=== PATIENT | male | born 1950 | race Caucasian/White ===

== ENCOUNTER 2020-11-12 14:45 | Inpatient (IN) | payer MEDICARE, OTHER ==
[2020-11-12] MEDS ORDERED: NITROGLYCERIN OINT 1 INCH/GM PACKET TOPICAL STA (15:26)
[2020-11-12] MEDS ORDERED: ASPIRIN 81 MG PO STA (15:26)
[2020-11-12] MEDS ORDERED: FUROSEMIDE 10 MG/ML 10 ML VIAL IV STA (15:27)
--- NOTE | 2020-11-12 15:30 | ED ---
General Adult HPI - General Chief complaint: Chest Pain Stated complaint: SOB,Chest pain Time Seen by Provider: 11/12/20 15:14 Source: patient Mode of arrival: ambulatory Limitations: no limitations - History of Present Illness Initial comments: This 70-year-old male presents with a complaint of shortness of breath. He states that it is much worse with any exertion. It initially started approximately 2 months ago but is much more severe over the past 2 weeks. He states that he has to sleep in a recliner as he cannot breathe if he lays flat. He complains of chronic lower extremity edema which may be somewhat worse. He states that he has had significant weight gain in the last month or so with abdominal distention. He also complains of some lower sternal chest pressure. He does have a history of coronary artery disease with 2 cardiac stents. He had 1 cardiac stent placed at our hospital in 2003. He had another cardiac stent placed in [place] in 2004. His last stress test was approximately one year ago and was purportedly normal. He denies any fevers or chills. He was recently started on an albuterol inhaler with minimal relief. He otherwise denies any lung problems. He denies any known congestive heart failure. He denies any history of DVT or PE. No other complaints or modifying factors. - Related Data Allergies Allergy/AdvReac Type Severity Reaction Status Date / Time ampicillin Allergy Unknown Verified 11/12/20 14:49 Childhood Iodinated Contrast Media Allergy Unknown Verified 11/12/20 14:49 Penicillins Allergy Unknown Verified 11/12/20 14:49 Childhood Tetanus Vaccines and Toxoid Allergy Unknown Verified 11/12/20 14:49 Review of Systems ROS Statement: Those systems with pertinent positive or pertinent negative responses have been documented in the HPI. ROS Other: All systems not noted in ROS Statement are negative. Past Medical History Past Medical History: Diabetes Mellitus, Hyperlipidemia, Hypertension Additional Past Medical History / Comment(s): prostate disorder History of Any Multi-Drug Resistant Organisms: None Reported Past Surgical History: Heart Catheterization With Stent Smoking Status: Never smoker Past Alcohol Use History: None Reported Past Drug Use History: None Reported General Exam - General Exam Comments Initial Comments: GENERAL: The patient is well nourished and well hydrated. VITAL SIGNS: Heart rate, blood pressure, respiratory rate reviewed as recorded in nurse's notes. EYES: Pupils are round and reactive. Extraocular movements are intact. No conjunctival / lid redness or swelling. ENT: No external evidence of injury, swelling, or ecchymosis. Airway is patent. Throat is clear. NECK: Nontender. No swelling or evidence of injury. No subcutaneous emphysema. Trachea is midline. No thyroid mass. HEART: Regular rate and rhythm. Good peripheral pulses. Significant lower e xtremity edema noted bilaterally. LUNGS/CHEST: Diminished breath sounds bilaterally. No ecchymosis, subcutaneous emphysema, or tenderness. ABDOMEN: Abdomen soft without tenderness. No palpable masses or organomegaly. No peritoneal signs. No abdominal wall swelling or ecchymosis. EXTREMITIES: No extremity tenderness. Normal muscle tone and function. No thoracolumbar tenderness. Significant lower extremity edema noted bilaterally. NEUROLOGIC: Sensation is grossly intact. Cranial nerve exam reveals face is symmetrical, tongue is midline, speech is clear. SKIN: No abrasions or ecchymosis is noted. No induration or masses noted. PSYCHIATRIC: Alert and oriented. Appropriate behavior and judgment. Limitations: no limitations Course Vital Signs 11/12/20 11/12/20 11/12/20 14:46 15:20 17:33 Temperature 97.6 F Pulse Rate 65 71 72 Respiratory 20 20 20 Rate Blood Pressure 192/73 173/81 165/80 O2 Sat by Pulse 96 97 100 Oximetry 11/12/20 18:58 Temperature Pulse Rate 68 Respiratory 20 Rate Blood Pressure 164/80 O2 Sat by Pulse 100 Oximetry Medical Decision Making - Medical Decision Making The patient was seen and examined. All diagnostics were reviewed. An IV is established. He receives aspirin orally as well as Nitropaste topically. He receives 80 mg of Lasix intravenously. The EKG shows evidence of a left bundle branch block with a normal sinus rhythm at a rate of 70. There is associated ST-T wave changes with the left bundle branch block. The CT intervals 170, QRS duration is 150, and the QTC intervals 481. The chest x-ray overall did not show any acute process or definitive congestive heart failure. The laboratories reviewed and shows some mild renal insufficiency with slight elevation of the BNP. The troponin is negative. Due to the patient not showing overt congestive heart failure on diagnostics, it is felt as though a pulmonary embolism needs to be ruled out. The patient is agreeable with this. A computed tomography scan of the thorax with contrast was done and no evidence of pulmonary embolism is noted. No acute processes identified. It is felt as though he would still requ antonio admission to the hospital. It is still felt clinically that he has congestive heart failure. The case was discussed with internal medicine PA and they're agreeable with admission. - Lab Data Result diagrams: 11/12/20 15:29 11/12/20 15:29 Lab Results 11/12/20 11/12/20 11/12/20 Range/Units 15:29 15:29 15:29 WBC 9.0 (3.8-10.6) k/uL RBC 4.77 (4.30-5.90) m/uL Hgb 13.6 (13.0-17.5) gm/dL Hct 40.5 (39.0-53.0) % MCV 84.9 (80.0-100.0) fL MCH 28.5 (25.0-35.0) pg MCHC 33.6 (31.0-37.0) g/dL RDW 14.1 (11.5-15.5) % Plt Count 203 (150-450) k/uL MPV 7.0 Neutrophils % 68 % Lymphocytes % 21 % Monocytes % 6 % Eosinophils % 4 % Basophils % 1 % Neutrophils # 6.1 (1.3-7.7) k/uL Lymphocytes # 1.9 (1.0-4.8) k/uL Monocytes # 0.5 (0-1.0) k/uL Eosinophils # 0.3 (0-0.7) k/uL Basophils # 0.1 (0-0.2) k/uL PT 10.4 (9.0-12.0) sec INR 1.0 (<1.2) APTT 22.8 (22.0-30.0) sec Sodium 138 (137-145) mmol/L Potassium 4.7 (3.5-5.1) mmol/L Chloride 98 (98-107) mmol/L Carbon Dioxide 33 H (22-30) mmol/L Anion Gap 7 mmol/L BUN 22 H (9-20) mg/dL Creatinine 1.42 H (0.66-1.25) mg/dL Est GFR (CKD-EPI)AfAm 57 (>60 ml/min/1.73 sqM) Est GFR (CKD-EPI)NonAf 49 (>60 ml/min/1.73 sqM) Glucose 122 H (74-99) mg/dL Calcium 9.0 (8.4-10.2) mg/dL Magnesium 2.1 (1.6-2.3) mg/dL Total Bilirubin 0.9 (0.2-1.3) mg/dL AST 30 (17-59) U/L ALT 29 (4-49) U/L Alkaline Phosphatase 109 (38-126) U/L Troponin I (0.000-0.034) ng/mL NT-Pro-B Natriuret Pep pg/mL Total Protein 7.0 (6.3-8.2) g/dL Albumin 4.1 (3.5-5.0) g/dL 11/12/20 11/12/20 Range/Units 15:29 15:29 WBC (3.8-10.6) k/uL RBC (4.30-5.90) m/uL Hgb (13.0-17.5) gm/dL Hct (39.0-53.0) % MCV (80.0-100.0) fL MCH (25.0-35.0) pg MCHC (31.0-37.0) g/dL RDW (11.5-15.5) % Plt Count (150-450) k/uL MPV Neutrophils % % Lymphocytes % % Monocytes % % Eosinophils % % Basophils % % Neutrophils # (1.3-7.7) k/uL Lymphocytes # (1.0-4.8) k/uL Monocytes # (0-1.0) k/uL Eosinophils # (0-0.7) k/uL Basophils # (0-0.2) k/uL PT (9.0-12.0) sec INR (<1.2) APTT (22.0-30.0) sec Sodium (137-145) mmol/L Potassium (3.5-5.1) mmol/L Chloride (98-107) mmol/L Carbon Dioxide (22-30) mmol/L Anion Gap mmol/L BUN (9-20) mg/dL Creatinine (0.66-1.25) mg/dL Est GFR (CKD-EPI)AfAm (>60 ml/min/1.73 sqM) Est GFR (CKD-EPI)NonAf (>60 ml/min/1.73 sqM) Glucose (74-99) mg/dL Calcium (8.4-10.2) mg/dL Magnesium (1.6-2.3) mg/dL Total Bilirubin (0.2-1.3) mg/dL AST (17-59) U/L ALT (4-49) U/L Alkaline Phosphatase (38-126) U/L Troponin I <0.012 (0.000-0.034) ng/mL NT-Pro-B Natriuret Pep 227 pg/mL Total Protein (6.3-8.2) g/dL Albumin (3.5-5.0) g/dL Disposition Clinical Impression: Dyspnea, Chest pain, Congestive heart failure, Unstable angina, Bundle branch block, left, Hypertension, Obesity, History of coronary artery disease, Renal insufficiency Disposition: ADMITTED IP TO THIS HOSP Condition: Fair Is patient prescribed a controlled substance at d/c from ED?: No Referrals: Nonstaff,Physician [Primary Care Provider] - 1-2 days Time of Disposition: 19:02 Decision Date: 11/12/20 Decision Time: 19:02
--- NOTE | 2020-11-12 15:45 | XR ---
EXAMINATION TYPE: XR chest 2V DATE OF EXAM: 11/12/2020 COMPARISON: NONE HISTORY: Chest pain and shortness of breath. TECHNIQUE: Frontal and lateral views of the chest are obtained. FINDINGS: There is mild chronic parenchymal changes bilaterally without suspicious focal air space o pacity, pleural effusion, or pneumothorax seen. The cardiac silhouette size is enlarged. Large bridg ing osteophytes anteriorly in the thoracic spine. Correlate for DISH. IMPRESSION: Chronic change and cardiomegaly without acute pulmonary process.
[2020-11-12 15:54] LABS: Basophils # (A) 0.1 k/uL (0-0.2); Basophils % (A) 1 %; Eosinophils # (A) 0.3 k/uL (0-0.7); Eosinophils % (A) 4 %; HCT 40.5 % (39.0-53.0); HGB 13.6 gm/dL (13.0-17.5); Lymphocytes # (A) 1.9 k/uL (1.0-4.8); Lymphocytes % (A) 21 %; MCH 28.5 pg (25.0-35.0); MCHC 33.6 g/dL (31.0-37.0); MCV 84.9 fL (80.0-100.0); Monocytes # (A) 0.5 k/uL (0-1.0); Monocytes % (A) 6 %; Neutrophils # (A) 6.1 k/uL (1.3-7.7); Neutrophils % (A) 68 %; Platelet Count 203 k/uL (150-450); RBC 4.77 m/uL (4.30-5.90); RDW 14.1 % (11.5-15.5)
[2020-11-12 16:04] LABS: Albumin 4.1 g/dL (3.5-5.0); Magnesium 2.1 mg/dL (1.6-2.3); Potassium 4.7 mmol/L (3.5-5.1); Total Bilirubin 0.9 mg/dL (0.2-1.3)
[2020-11-12 16:10] LABS: Partial Thromboplastin Time 22.8 sec (22.0-30.0); Prothrombin Time 10.4 sec (9.0-12.0)
[2020-11-12] MEDS ORDERED: diphenhydrAMINE 50 MG/ML 1 ML VIAL IVP STA (17:21)
[2020-11-12] MEDS ORDERED: methylPREDNISolone SOD SUCCI 125 MG/2 ML VIAL IV STA (17:21)
--- NOTE | 2020-11-12 18:37 | CT ---
EXAMINATION TYPE: CT angio chest DATE OF EXAM: 11/12/2020 COMPARISON: None HISTORY: Difficulty breathing. CT DLP: 595.3 mGycm Automated exposure control for dose reduction was used. CONTRAST: Performed with IV Contrast, patient injected with 80 mL of Isovue 370. Images obtained from the thoracic inlet to the diaphragm with IV contrast and 3-D post processed imag es. There is some mild patchy groundglass interstitial infiltrate in the mid lung north. Heart is border line enlarged. There is no pericardial effusion. There is no pleural effusion. There are no hilar mas ses. There is no mediastinal adenopathy. There is intact thoracic aorta. There is no aneurysm or dissection. The ascending aorta measures 3.8 cm. There is normal contrast opacification of the pulmonary arteries. There are no filling defects. There is some spurring in the thoracic spine. There is no thoracic compression fracture. There is anterior bridging osteophyte formation in the thoracic spine. This could relate to ankylosing spondylitis. IMPRESSION: Interstitial pulmonary infiltrates could relate to some pulmonary fibrosis. No evidence of pulmonary embolism.
[2020-11-12] MEDS ORDERED: LIDOCAINE 4% CREAM 5 GM TUBE TOPICAL PRN (19:24)
[2020-11-12 20:20] LABS: Glucose,Whole Blood 145 mg/dL (75-99)
[2020-11-12] MEDS: METOPROLOL TARTRATE 50 MG TAB PO SCH (20:34)
[2020-11-12] MEDS: ATORVASTATIN 80 MG TAB PO SCH (20:35)
[2020-11-12] MEDS: NITROGLYCERIN OINT 1 INCH/GM PACKET TOPICAL SCH (20:56)
[2020-11-12] MEDS: INSULIN DETEMIR (LEVEMIR) 100 UNIT/ML SYR SQ SCH (20:56)
[2020-11-12] MEDS: FLUTICASONE 50MCG/SPRAY NASAL 16GM EA NOSTRIL SCH (20:57)
[2020-11-12] MEDS: FUROSEMIDE 10 MG/ML 4 ML VIAL IV SCH (23:07)
[2020-11-13 06:10] LABS: Glucose,Whole Blood 378 mg/dL (75-99)
[2020-11-13] MEDS: LEVOTHYROXINE 112 MCG TAB PO SCH (06:23)
[2020-11-13] MEDS: INSULIN ASPART (NovoLOG) 100 UNIT/ML VIAL SQ SCH ×3 (06:23→17:37)
[2020-11-13] MEDS ORDERED: INSULIN ASPART (NovoLOG) 100 UNIT/ML VIAL SQ SCH ×3 (07:30→21:00)
[2020-11-13 07:54] LABS: Calcium 9.2 mg/dL (8.4-10.2); Potassium 5.2 mmol/L (3.5-5.1)
[2020-11-13] MEDS: LORATADINE 10 MG TAB PO SCH (08:10)
[2020-11-13] MEDS: METOPROLOL TARTRATE 50 MG TAB PO SCH ×2 (08:12→21:08)
[2020-11-13] MEDS: FINASTERIDE 5 MG TAB PO SCH (08:12)
[2020-11-13] MEDS: MULTIVITAMINS, THERA 1 EACH TAB PO SCH (08:12)
[2020-11-13] MEDS: ENOXAPARIN 40 MG/0.4 ML SYRINGE SQ SCH (08:13)
[2020-11-13] MEDS: FUROSEMIDE 10 MG/ML 4 ML VIAL IV SCH (08:13)
[2020-11-13] MEDS: ALBUTEROL HFA INHALER INHALATION SCH (08:14)
[2020-11-13] MEDS: NITROGLYCERIN OINT 1 INCH/GM PACKET TOPICAL SCH (08:20)
[2020-11-13] MEDS: FLUTICASONE 50MCG/SPRAY NASAL 16GM EA NOSTRIL SCH ×2 (08:20→21:01)
[2020-11-13] MEDS ORDERED: FAMOTIDINE 20 MG TAB PO SCH (09:00)
[2020-11-13] MEDS ORDERED: LOSARTAN 50 MG TAB PO SCH (09:00)
--- NOTE | 2020-11-13 10:52 | US ---
EXAMINATION TYPE: US venous doppler duplex LE DATE OF EXAM: 11/13/2020 10:39 AM COMPARISON: NONE CLINICAL HISTORY: swelling . Edema SIDE PERFORMED: Bilateral TECHNIQUE: The lower extremity deep venous system is examined utilizing real time linear array sonog kamran with graded compression, doppler sonography and color-flow sonography. VESSELS IMAGED: Common Femoral Vein Deep Femoral Vein Greater Saphenous Vein * Femoral Vein Popliteal Vein Small Saphenous Vein * Proximal Calf Veins (* superficial vessels) Large pt body habitus with edema, difficult exam Right Leg: Negative for DVT Left Leg: Negative for DVT There is normal flow, compressibility, vascular waveforms. IMPRESSION: No evident deep venous thrombosis at or above the knees. Technologist reports a technical ly difficult exam.
[2020-11-13] MEDS ORDERED: hydrALAZINE HCL 20 MG/ML 1 ML VIAL IVP PRN (11:26)
--- NOTE | 2020-11-13 11:27 | P.NPCON ---
History of Present Illness - Reason for Consult acute renal failure, chronic renal failure - History of Present Illness Reason for consultation: Acute kidney injury on chronic kidney disease History of present illness: Patient is a 70-year-old male seen in renal consultation for acute kidney injury and chronic kidney disease. Patient has chronic kidney disease and follows with a campus recruiting coordinator out of [facility]. Patient is not sure as to what his baseline renal function is. Creatinine on admission yesterday was 1.42 and is up to 1.8 today. Patient presented to the hospital with worsening shortness of breath and edema over the last couple of months. Patient states he's gained about 15-20 pounds over the last 2-3 months. Patient received 80 mg IV Lasix yesterday and was then maintained on 40 mg IV every 8 hours. It was decreased to 40 mg IV once daily starting this morning due to worsening renal function. He does have long-standing history of diabetes mellitus. At home was only taking Lasix 20 mg once daily. He denies regular use of nonsteroidals. Denies family history of renal disease. No fever or chills. Blood pressure stable. No vomiting or diarrhea. Edema is improving. Good urine output. No gross hematuria. Vital signs are stable. General: The patient appeared well nourished and normally developed. HEENT: Head exam is unremarkable. Neck is without jugular venous distension. LUNGS: Breath sounds decreased. HEART: Rate and Rhythm are regular. ABDOMEN: Soft, nontender. EXTREMITITES: 1+ edema. Past Medical History Past Medical History: Diabetes Mellitus, Hyperlipidemia, Hypertension Additional Past Medical History / Comment(s): prostate disorder History of Any Multi-Drug Resistant Organisms: None Reported Past Surgical History: Heart Catheterization With Stent Additional Past Surgical History / Comment(s): thyroid removal 2020 with cheikh of vocal cords. Past Anesthesia/Blood Transfusion Reactions: No Reported Reaction Date of Last Stent Placement:: Past Psychological History: No Psychological Hx Reported Smoking Status: Never smoker Past Alcohol Use History: None Reported Past Drug Use History: None Reported Medications and Allergies Home Medications Medication Instructions Recorded Confirmed Type Albuterol Inhaler [Ventolin Hfa 1 puff INHALATION RT-DAILY 11/12/20 11/12/20 History Inhaler] Aspirin EC [Ecotrin Low Dose] 81 mg PO HS 11/12/20 11/12/20 History Atorvastatin [Lipitor] 80 mg PO HS 11/12/20 11/12/20 History Cetirizine HCl 10 mg PO DAILY 11/12/20 11/12/20 History Famotidine 40 mg PO DAILY 11/12/20 11/12/20 History Finasteride [Proscar] 5 mg PO DAILY 11/12/20 11/12/20 History Fluticasone Nasal [place] [Flonase 1 spray EA NOSTRIL BID 11/12/20 11/12/20 History Nasal [place]] Furosemide [Lasix] 20 mg PO DAILY 11/12/20 11/12/20 History Insulin Aspart [NovoLOG Flexpen] See Protocol SQ AC-TID 11/12/20 11/12/20 History Insulin Glargine,Hum.rec.anlog 30 unit SQ HS 11/12/20 11/12/20 History [Lantus Solostar] Isosorbide Mononitrate ER [Imdur] 30 mg PO DAILY 11/12/20 11/12/20 History Levothyroxine Sodium [Synthroid] 224 mcg PO DAILY 11/12/20 11/12/20 History Lidocaine 4% Cream [Lmx 4] 1 applic TOPICAL DAILY PRN 11/12/20 11/12/20 History Losartan [Cozaar] 50 mg PO DAILY 11/12/20 11/12/20 History Metoprolol Tartrate [Lopressor] 50 mg PO BID 11/12/20 11/12/20 History Multivitamins, Thera [Multivitamin 1 tab PO DAILY 11/12/20 11/12/20 History (formulary)] Allergies Allergy/AdvReac Type Severity Reaction Status Date / Time ampicillin Allergy Unknown Verified 11/12/20 19:07 Childhood codeine Allergy Unknown Verified 11/12/20 19:07 Iodinated Contrast Media Allergy Unknown Verified 11/12/20 19:07 Penicillins Allergy Unknown Verified 11/12/20 19:07 Childhood Tetanus Vaccines and Toxoid Allergy Unknown Verified 11/12/20 19:07 Physical Exam Vitals: Vital Signs Temp Pulse Pulse Resp BP BP Pulse Ox 11/13/20 08:14 95 11/13/20 08:09 153/67 11/13/20 08:00 97.8 F 75 18 161/69 97 11/13/20 03:35 98 F 71 16 149/65 96 11/12/20 23:31 78 18 144/68 95 11/12/20 20:54 98.4 F 70 16 139/65 100 11/12/20 18:58 68 20 164/80 100 11/12/20 17:33 72 20 165/80 100 11/12/20 15:20 71 20 173/81 97 11/12/20 14:46 97.6 F 65 20 192/73 96 Intake and Output 11/12/20 11/13/20 11/13/20 22:59 06:59 14:59 Other: Voiding Method Toilet Toilet Urinal Urinal # Voids 0 1 Weight 131.542 kg 129.8 kg Results - Lab Results Most recent lab results Calcium 9.2 mg/dL (8.4-10.2) 11/13/20 06:51 Magnesium 2.1 mg/dL (1.6-2.3) 11/12/20 15:29 11/12/20 15:29 11/13/20 06:51 Assessment and Plan Plan: Assessment: 1. Acute kidney injury mostly prerenal secondary to cardiorenal syndrome. Creatinine 1.42 on admission and is 1.8 today. He also received IV contrast on 11/12/2020. 2. Chronic kidney disease. Patient follows with campus recruiting coordinator out of [facility]. Unknown baseline renal function. 3. Volume overload. 4. Diabetes mellitus. 5. CHF. Unknown ejection fraction. 6. Mild hyperkalemia secondary to hyperglycemia. Plan: Maintain IV Lasix 40 mg once daily. Check urinalysis. Check renal ultrasound. Low-salt diet and 1500 mL fluid restriction. Continue to monitor renal function and urine output. Follow-up echocardiogram. Hold losartan and add hydralazine. Tight blood sugar control. Thank you for the consultation. I will continue to follow the patient with you during his hospital stay.
--- NOTE | 2020-11-13 11:29 | P.CRDCN ---
<Molly Wise - Last Filed: 11/13/20 11:13> History of Present Illness History of present illness: HISTORY OF PRESENTING ILLNESS This is a pleasant 70-year-old male past medical history significant for coronary artery disease status post PCI in 2003 at the [facility], hypertension, dyslipidemia, diabetes mellitus and morbid obesity. He follows in the office with the [facility]. We have been asked to see in consultation for heart failure. He states for the previous 2 months he has been experiencing worsening exertional shortness of breath, a full sensation in his abdomen and chest, increased lower extremity swelling, increased fatigue and poor oral intake. He states he started sleeping in a chair around late August due to inability to lay flat and sleep comfortably without feeling short of breath. He denies chest pain or tightness but he again repeats that his chest feels full. He states he does have some baseline lower extremity swelling but he has gained 15 lbs in the last 2 months. DIAGNOSTICS EKG reveals sinus mechanism with underlying left bundle branch block, there are no old EKGs for comparison. Telemetry tracings indicate sinus mechanism. Chest xray mild parenchymal changes bilaterally with no suspicious opacity or pleural effusion or heart failure. CTA is negative for pulmonary embolism with interstitial pulmonary infiltrates likely related to pulmonary fibrosis, ascending aorta measures 2.8 cm. Laboratory reviewed, CBC unremarkable, sodium 135, potassium 5.2, creatinine on admission 1.40 2 repeat today 1.8, cardiac enzymes negative 3, magnesium 2.1, proBNP 227. Current cardiac medications include aspirin 81 mg daily, atorvastatin 80 mg daily, Lasix 20 mg daily, Imdur 30 mg daily, losartan 50 mg daily and Lopressor 50 mg twice a day. REVIEW OF SYSTEMS At the time of my exam: CONSTITUTIONAL: Denies fever or chills. CARDIOVASCULAR: Denies chest pain, shortness of breath, orthopnea, PND or palpitations. RESPIRATORY: Denies cough. GASTROINTESTINAL: Denies abdominal pain, diarrhea, constipation, nausea or vomiting. MUSCULOSKELETAL: Denies myalgias. NEUROLOGIC: Denies numbness, tingling, headacbe or weakness. ENDOCRINE: Denies fatigue, weight change, polydipsia or polyurina. GENITOURINARY: Denies burning, hematuria or urgency with micturation. HEMATOLOGIC: Denies history of anemia or bleeding. PHYSICAL EXAMINATION Blood pressure 153/67 heart rate 75 afebrile and maintaining oxygen saturation on room air. CONSTITUTIONAL: No apparent distress. HEENT: Head is normocephalic. Pupils are equal, round. Sclerae anicteric. Mucous membranes of the mouth are moist. No JVD. No carotid bruit. CHEST EXAMINATION: Expiratory wheezes, no rhonchi or rales. No chest wall tenderness is noted on palpation or with deep breathing. HEART EXAMINATION: Regular rate and rhythm. S1, S2 heard. No murmurs, gallops or rub. ABDOMEN: Soft, nontender. Positive bowel sounds. EXTREMITIES: 2+ peripheral pulses, bilateral lower extremity 2+ pitting edema and no calf tenderness. NEUROLOGIC EXAMINATION: Patient is awake, alert and oriented x3. ASSESSMENT Exertional shortness of breath, clinically no heart failure. Consider pulmonary evaluation. Suspect lower extremity venous insufficiency Coronary artery disease status post PCI in 2003, exact details unavailable Left bundle branch block Acute kidney injury Hypertension Dyslipidemia Diabetes mellitus PLAN An acute coronary event has been ruled out. Decrease aspirin to 81 mg daily. Lower extremity edema likely related to venous insufficiency. Do not suspect overt heart failure as cause for his symptoms. Consider pulmonary etiology given his wheezing and normal proBNP. Recommend decreasing IV diuretics, await nephrology opinion regarding continuing them at all. Continue atorvastatin, metoprolol and losartan as previously ordered. Check a d-dimer and lower extremity Doppler. Echocardiogram has been obtained and will be reviewed. Thank you kindly for this consultation. Nurse Practitioner note has been reviewed, I agree with a documented findings and plan of care. Patient was seen and examined. Past Medical History Past Medical History: Diabetes Mellitus, Hyperlipidemia, Hypertension Additional Past Medical History / Comment(s): prostate disorder History of Any Multi-Drug Resistant Organisms: None Reported Past Surgical History: Heart Catheterization With Stent Additional Past Surgical History / Comment(s): thyroid removal 2019 with cheikh of vocal cords. Past Anesthesia/Blood Transfusion Reactions: No Reported Reaction Date of Last Stent Placement:: Past Psychological History: No Psychological Hx Reported Smoking Status: Never smoker Past Alcohol Use History: None Reported Past Drug Use History: None Reported Medications and Allergies Home Medications Medication Instructions Recorded Confirmed Type Albuterol Inhaler [Ventolin Hfa 1 puff INHALATION RT-DAILY 11/12/20 11/12/20 History Inhaler] Aspirin EC [Ecotrin Low Dose] 81 mg PO HS 11/12/20 11/12/20 History Atorvastatin [Lipitor] 80 mg PO HS 11/12/20 11/12/20 History Cetirizine HCl 10 mg PO DAILY 11/12/20 11/12/20 History Famotidine 40 mg PO DAILY 11/12/20 11/12/20 History Finasteride [Proscar] 5 mg PO DAILY 11/12/20 11/12/20 History Fluticasone Nasal Volant [Flonase 1 spray EA NOSTRIL BID 11/12/20 11/12/20 History Nasal Volant] Furosemide [Lasix] 20 mg PO DAILY 11/12/20 11/12/20 History Insulin Aspart [NovoLOG Flexpen] See Protocol SQ AC-TID 11/12/20 11/12/20 History Insulin Glargine,Hum.rec.anlog 30 unit SQ HS 11/12/20 11/12/20 History [Lantus Solostar] Isosorbide Mononitrate ER [Imdur] 30 mg PO DAILY 11/12/20 11/12/20 History Levothyroxine Sodium [Synthroid] 224 mcg PO DAILY 11/12/20 11/12/20 History Lidocaine 4% Cream [Lmx 4] 1 applic TOPICAL DAILY PRN 11/12/20 11/12/20 History Losartan [Cozaar] 50 mg PO DAILY 11/12/20 11/12/20 History Metoprolol Tartrate [Lopressor] 50 mg PO BID 11/12/20 11/12/20 History Multivitamins, Thera [Multivitamin 1 tab PO DAILY 11/12/20 11/12/20 History (formulary)] Allergies Allergy/AdvReac Type Severity Reaction Status Date / Time ampicillin Allergy Unknown Verified 11/12/20 19:07 Childhood codeine Allergy Unknown Verified 11/12/20 19:07 Iodinated Contrast Media Allergy Unknown Verified 11/12/20 19:07 Penicillins Allergy Unknown Verified 11/12/20 19:07 Childhood Tetanus Vaccines and Toxoid Allergy Unknown Verified 11/12/20 19:07 Physical Exam Vitals: Vital Signs Temp Pulse Pulse Resp BP BP Pulse Ox 11/13/20 08:14 95 11/13/20 08:09 153/67 11/13/20 08:00 97.8 F 75 18 161/69 97 11/13/20 03:35 98 F 71 16 149/65 96 11/12/20 23:31 78 18 144/68 95 11/12/20 20:54 98.4 F 70 16 139/65 100 11/12/20 18:58 68 20 164/80 100 11/12/20 17:33 72 20 165/80 100 11/12/20 15:20 71 20 173/81 97 11/12/20 14:46 97.6 F 65 20 192/73 96 Intake and Output 11/12/20 11/13/20 11/13/20 22:59 06:59 14:59 Other: Voiding Method Toilet Urinal # Voids 0 1 Weight 131.542 kg 129.8 kg Results 11/12/20 15:29 11/13/20 06:51 Cardiac Enzymes 11/12/20 11/12/20 11/12/20 Range/Units 15:29 15:29 20:44 AST 30 (17-59) U/L Troponin I <0.012 0.013 (0.000-0.034) ng/mL 11/12/20 Range/Units 23:08 AST (17-59) U/L Troponin I <0.012 (0.000-0.034) ng/mL Coagulation 11/12/20 Range/Units 15:29 PT 10.4 (9.0-12.0) sec APTT 22.8 (22.0-30.0) sec CBC 11/12/20 Range/Units 15:29 WBC 9.0 (3.8-10.6) k/uL RBC 4.77 (4.30-5.90) m/uL Hgb 13.6 (13.0-17.5) gm/dL Hct 40.5 (39.0-53.0) % Plt Count 203 (150-450) k/uL Comprehensive Metabolic Panel 11/12/20 11/13/20 Range/Units 15:29 06:51 Sodium 138 135 L (137-145) mmol/L Potassium 4.7 5.2 H (3.5-5.1) mmol/L Chloride 98 94 L (98-107) mmol/L Carbon Dioxide 33 H 31 H (22-30) mmol/L BUN 22 H 36 H (9-20) mg/dL Creatinine 1.42 H 1.80 H (0.66-1.25) mg/dL Glucose 122 H 442 H (74-99) mg/dL Calcium 9.0 9.2 (8.4-10.2) mg/dL AST 30 (17-59) U/L ALT 29 (4-49) U/L Alkaline Phosphatase 109 (38-126) U/L Total Protein 7.0 (6.3-8.2) g/dL Albumin 4.1 (3.5-5.0) g/dL Current Medications Generic Name Dose Route Start Last Admin Trade Name Freq PRN Reason Stop Dose Admin Albuterol Sulfate 1 puff 11/13/20 08:00 11/13/20 08:14 Albuterol Hfa Inhaler INHALATION 1 puff RT-DAILY LIV Administration Aspirin 81 mg 11/14/20 09:00 Aspirin 81 Mg PO DAILY LIV Atorvastatin Calcium 80 mg 11/12/20 21:00 11/12/20 20:35 Atorvastatin 80 Mg Tab PO 80 mg HS LIV Administration Enoxaparin Sodium 40 mg 11/13/20 09:00 Enoxaparin 40 Mg/0.4 Ml Syringe SQ DAILY LIV Famotidine 40 mg 11/13/20 09:00 Famotidine 20 Mg Tab PO DAILY LIV Finasteride 5 mg 11/13/20 09:00 Finasteride 5 Mg Tab PO DAILY LIV Fluticasone Propionate 1 spray 11/12/20 21:00 11/12/20 20:57 Fluticasone 50mcg/Volant Nasal 16gm EA NOSTRIL Not Given BID LIV Furosemide 40 mg 11/13/20 00:00 11/12/20 23:07 Furosemide 10 Mg/Ml 4 Ml Vial IV 40 mg Q8HR LIV Administration Insulin Aspart 0 unit 11/13/20 07:30 11/13/20 06:23 Insulin Aspart (Novolog) 100 Unit/Ml Vial SQ 11 unit AC-TID LIV Administration Protocol Insulin Detemir 30 unit 11/12/20 21:00 11/12/20 20:56 Insulin Detemir (Levemir) 100 Unit/Ml Syr SQ 30 unit HS [facility] Administration Levothyroxine Sodium 224 mcg 11/13/20 06:30 11/13/20 06:23 Levothyroxine 112 Mcg Tab PO 224 mcg DAILY@0630 LIV Administration Lidocaine HCl 1 applic 11/12/20 19:24 Lidocaine 4% Cream 5 Gm Tube TOPICAL DAILY PRN Pain Loratadine 10 mg 11/13/20 09:00 Loratadine 10 Mg Tab PO DAILY LIV Losartan Potassium 50 mg 11/13/20 09:00 Losartan 50 Mg Tab PO DAILY LIV Metoprolol Tartrate 50 mg 11/12/20 21:00 11/12/20 20:34 Metoprolol Tartrate 50 Mg Tab PO 50 mg BID LIV Administration Multivitamins 1 each 11/13/20 09:00 Multivitamins, Thera 1 Each Tab PO DAILY LIV Nitroglycerin 1 inch 11/12/20 22:00 11/12/20 20:56 Nitroglycerin Oint 1 Inch/Gm Packet TOPICAL Not Given QID LIV Intake and Output 11/12/20 11/13/20 11/13/20 22:59 06:59 14:59 Other: Voiding Method Toilet Urinal # Voids 0 1 Weight 131.542 kg 129.8 kg 11/12/20 15:29 11/13/20 06:51 <Hu Mendosa - Last Filed: 11/13/20 16:38> History of Present Illness History of present illness: Patient admits allergy to contrast is previous NASRA with contrast in the past. Patient with NASRA <24hrs after contrast, more likely related to overdiuresis as contrast induced nephropathy often 24-48 hrs. We will decrease diuresis. He admits he has had swollen LE "for years" and may be more of a component of chronic venous insufficiency, check dopplers rule out DVT. Patient with audible wheeze and possible pulmonary fibrosis. Suspect mainly pulmonary source of SOB. Recommend pulmonary evaluation. Weight gain may be related to diet and lack of exercise. Does have an obese stomach and issues with feeling full easily and may be gastroparesis vs fluid retention. If volume status ambiguous or worsening kidney function may always consider a RHC. Hu Mendosa, DO Physical Exam Vitals: Vital Signs Temp Pulse Pulse Resp BP BP Pulse Ox 11/13/20 16:00 97.8 F 73 18 145/65 96 11/13/20 12:00 98.0 F 70 18 142/63 98 11/13/20 08:14 95 11/13/20 08:09 153/67 11/13/20 08:00 97.8 F 75 18 161/69 97 11/13/20 03:35 98 F 71 16 149/65 96 11/12/20 23:31 78 18 144/68 95 11/12/20 20:54 98.4 F 70 16 139/65 100 11/12/20 18:58 68 20 164/80 100 11/12/20 17:33 72 20 165/80 100 Intake and Output 11/13/20 11/13/20 11/13/20 06:59 14:59 22:59 Intake Total 247 Output Total 750 Balance -503 Intake: Oral 247 Output: Urine 750 Other: Voiding Method Toilet Urinal # Voids 1 Weight 129.8 kg 129.1 kg Results 11/12/20 15:29 11/13/20 06:51 Cardiac Enzymes 11/12/20 11/12/20 Range/Units 20:44 23:08 Troponin I 0.013 <0.012 (0.000-0.034) ng/mL Comprehensive Metabolic Panel 11/13/20 Range/Units 06:51 Sodium 135 L (137-145) mmol/L Potassium 5.2 H (3.5-5.1) mmol/L Chloride 94 L (98-107) mmol/L Carbon Dioxide 31 H (22-30) mmol/L BUN 36 H (9-20) mg/dL Creatinine 1.80 H (0.66-1.25) mg/dL Glucose 442 H (74-99) mg/dL Calcium 9.2 (8.4-10.2) mg/dL Current Medications Generic Name Dose Route Start Last Admin Trade Name Freq PRN Reason Stop Dose Admin Albuterol Sulfate 1 puff 11/13/20 08:00 11/13/20 08:14 Albuterol Hfa Inhaler INHALATION 1 puff RT-DAILY LIV Administration Aspirin 81 mg 11/14/20 09:00 Aspirin 81 Mg PO DAILY LIV Atorvastatin Calcium 80 mg 11/12/20 21:00 11/12/20 20:35 Atorvastatin 80 Mg Tab PO 80 mg HS LIV Administration Enoxaparin Sodium 40 mg 11/13/20 09:00 11/13/20 08:13 Enoxaparin 40 Mg/0.4 Ml Syringe SQ 40 mg DAILY LIV Administration Famotidine 20 mg 11/14/20 09:00 Famotidine 20 Mg Tab PO DAILY LIV Finasteride 5 mg 11/13/20 09:00 11/13/20 08:12 Finasteride 5 Mg Tab PO 5 mg DAILY LIV Administration Fluticasone Propionate 1 spray 11/12/20 21:00 11/13/20 08:20 Fluticasone 50mcg/Volant Nasal 16gm EA NOSTRIL Not Given BID [facility] Furosemide 40 mg 11/14/20 09:00 Furosemide 10 Mg/Ml 4 Ml Vial IV DAILY LIV Hydralazine HCl 10 mg 11/13/20 11:26 Hydralazine Hcl 20 Mg/Ml 1 Ml Vial IVP Q4HR PRN Blood Pressure - High Hydralazine HCl 25 mg 11/13/20 16:00 11/13/20 16:25 Hydralazine Hcl 25 Mg Tab PO 25 mg TID LIV Administration Insulin Aspart 0 unit 11/13/20 07:30 11/13/20 12:23 Insulin Aspart (Novolog) 100 Unit/Ml Vial SQ 12 unit AC-TID LIV Administration Protocol Insulin Detemir 30 unit 11/12/20 21:00 11/12/20 20:56 Insulin Detemir (Levemir) 100 Unit/Ml Syr SQ 30 unit HS LIV Administration Levothyroxine Sodium 224 mcg 11/13/20 06:30 11/13/20 06:23 Levothyroxine 112 Mcg Tab PO 224 mcg DAILY@0630 LIV Administration Lidocaine HCl 1 applic 11/12/20 19:24 Lidocaine 4% Cream 5 Gm Tube TOPICAL DAILY PRN Pain Loratadine 10 mg 11/13/20 09:00 11/13/20 08:10 Loratadine 10 Mg Tab PO 10 mg DAILY LIV Administration Metoprolol Tartrate 50 mg 11/12/20 21:00 11/13/20 08:12 Metoprolol Tartrate 50 Mg Tab PO 50 mg BID LIV Administration Multivitamins 1 each 11/13/20 09:00 11/13/20 08:12 Multivitamins, Thera 1 Each Tab PO 1 each DAILY LIV Administration Intake and Output 11/13/20 11/13/20 11/13/20 06:59 14:59 22:59 Intake Total 247 Output Total 750 Balance -503 Intake: Oral 247 Output: Urine 750 Other: Voiding Method Toilet Urinal # Voids 1 Weight 129.8 kg 129.1 kg Patient Weight 11/14/20 06:59 Weight 129.1 kg 11/12/20 15:29 11/13/20 06:51
--- NOTE | 2020-11-13 11:38 | ECHOF ---
Referral Reason:Heart Failure MEASUREMENTS -------- HEIGHT: 172.7 cm WEIGHT: 129.7 kg BP: 149/65 RVIDd: 3.4 cm (< 3.3) IVSd: 1.3 cm (0.6 - 1.1) LVIDd: 4.9 cm (3.9 - 5.3) LVPWd: 1.5 cm (0.6 - 1.1) IVSs: 1.7 cm LVIDs: 2.9 cm LVPWs: 1.9 cm LA Diam: 3.6 cm (2.7 - 3.8) Ao Diam: 3.3 cm (2.0 - 3.7) AV Cusp: 1.7 cm (1.5 - 2.6) LA Diam: 4.5 cm (2.7 - 3.8) MV EXCURSION: 20.304 mm (> 18.000) MV EF SLOPE: 67 mm/s (70 - 150) EPSS: 0.5 cm MV E Germain: 0.53 m/s MV DecT: 268 ms MV A Germain: 0.77 m/s MV E/A Ratio: 0.69 AV maxP.49 mmHg AV meanP.54 mmHg RAP: 5.00 mmHg RVSP: 37.31 mmHg FINDINGS -------- Sinus rhythm. Morbid Obesity This was a techncally difficult study with suboptimal views, , Lumason utilized for enhancement of im ages. The left ventricular size is normal. There is mild concentric left ventricular hypertrophy. Overa ll left ventricular systolic function is low-normal with, an EF between 50 - 55 %. The right ventricle is normal in size. The left atrial size is normal. The right atrial size is normal. The aortic valve was not well visualized. There is mild aortic stenosis present. Peak/mean gradie nt across the Aortic Valve is 22.49mmHg / 12.54mmHg. Mild mitral annular calcification present. Mild mitral regurgitation is present. Mild tricuspid regurgitation present. There is mild pulmonary hypertension. The right ventricular systolic pressure, as measured by Doppler, is 37.31mmHg. The pulmonic valve was not well visualized. The aortic root size is normal. There is no pericardial effusion. CONCLUSIONS -------- 1. Morbid Obesity 2. This was a techncally difficult study with suboptimal views, , Lumason utilized for enhancement of images. 3. The left ventricular size is normal. 4. There is mild concentric left ventricular hypertrophy. 5. Overall left ventricular systolic function is low-normal with, an EF between 50 - 55 %. 6. The right ventricle is normal in size. 7. The left atrial size is normal. 8. The right atrial size is normal. 9. The aortic valve was not well visualized. 10. There is mild aortic stenosis present. 11. Peak/mean gradient across the Aortic Valve is 22.49mmHg / 12.54mmHg. 12. Mild mitral annular calcification present. 13. Mild mitral regurgitation is present. 14. Mild tricuspid regurgitation present. 15. There is mild pulmonary hypertension. 16. The right ventricular systolic pressure, as measured by Doppler, is 37.31mmHg. 17. The pulmonic valve was not well visualized. 18. The aortic root size is normal. 19. There is no pericardial effusion. LANDSCAPE ARTIST: Rebceca Stoddard RDCS
[2020-11-13 11:56] LABS: Glucose,Whole Blood 431 mg/dL (75-99)
[2020-11-13 12:56] LABS: Appearance,Urine Clear (Clear); Bilirubin,Urine Negative (Negative); Blood,Urine Negative (Negative); Color,Urine Light Yellow; Glucose,Urine (UA) 4+ (Negative); Ketones,Urine Negative (Negative); Leukocyte Esterase,Urine Negative (Negative); Nitrite,Urine Negative (Negative); Protein,Urine Negative (Negative); Specific Gravity,Urine 1.012 (1.001-1.035); Urobilinogen,Urine <2.0 mg/dL (<2.0)
[2020-11-13 14:32] VITALS: BMI 43.2
--- NOTE | 2020-11-13 15:39 | US ---
EXAMINATION TYPE: US kidneys/renal and bladder DATE OF EXAM: 11/13/2020 COMPARISON: NONE CLINICAL HISTORY: stefania. abnormal labs. No pain. EXAM MEASUREMENTS: Right Kidney: 9.6 x 4.7 x 4.7 cm Left Kidney: 8.5 x 3.5 x 4.6 cm Limited due to overlying bowel gas and patient body habitus Right Kidney: No hydronephrosis or masses seen Left Kidney: Limited visualization due to overlying bowel gas. Appears smaller in size compared to co ntralateral kidney. Bladder: Contracted, anechoic Bilateral Jets not seen No evident ascites. Cortical medullary differentiation appears maintained within the kidneys. IMPRESSION: Exam is limited for evaluation. No hydronephrosis evident bilaterally.
[2020-11-13] MEDS ORDERED: ASPIRIN 325 MG TAB PO SCH (16:00)
[2020-11-13] MEDS: hydrALAZINE HCL 25 MG TAB PO SCH ×2 (16:25→21:09)
[2020-11-13 17:00] LABS: Glucose,Whole Blood 547 mg/dL (75-99)
[2020-11-13 17:00] LABS: Glucose,Whole Blood 542 mg/dL (75-99)
[2020-11-13 20:39] LABS: Glucose,Whole Blood 529 mg/dL (75-99)
[2020-11-13] MEDS: ATORVASTATIN 80 MG TAB PO SCH (21:08)
[2020-11-13] MEDS: INSULIN REGULAR 100 UNIT in SODIUM CHLORIDE 0.9% 100 ML IV SCH (21:22)
[2020-11-13 21:53] LABS: Glucose,Whole Blood 523 mg/dL (75-99)
[2020-11-13 22:33] LABS: Glucose,Whole Blood 424 mg/dL (75-99)
[2020-11-13 22:52] LABS: Glucose,Whole Blood 369 mg/dL (75-99)
[2020-11-13] MEDS: INSULIN DETEMIR (LEVEMIR) 100 UNIT/ML SYR SQ SCH (22:56)
[2020-11-13 23:22] LABS: Glucose,Whole Blood 247 mg/dL (75-99)
[2020-11-14 01:10] LABS: Glucose,Whole Blood 87 mg/dL (75-99)
[2020-11-14 01:58] LABS: Glucose,Whole Blood 86 mg/dL (75-99)
[2020-11-14 03:03] LABS: Glucose,Whole Blood 170 mg/dL (75-99)
[2020-11-14 05:21] LABS: Glucose,Whole Blood 138 mg/dL (75-99)
[2020-11-14] MEDS: LEVOTHYROXINE 112 MCG TAB PO SCH (06:19)
[2020-11-14 07:05] LABS: Glucose,Whole Blood 149 mg/dL (75-99)
[2020-11-14] MEDS: ALBUTEROL HFA INHALER INHALATION SCH ×2 (07:26→20:53)
[2020-11-14 07:56] LABS: Magnesium 2.3 mg/dL (1.6-2.3); Potassium 4.6 mmol/L (3.5-5.1)
[2020-11-14] MEDS: ASPIRIN 81 MG PO SCH (08:05)
[2020-11-14] MEDS: LORATADINE 10 MG TAB PO SCH (08:06)
[2020-11-14] MEDS: METOPROLOL TARTRATE 50 MG TAB PO SCH ×2 (08:06→20:00)
[2020-11-14] MEDS: MULTIVITAMINS, THERA 1 EACH TAB PO SCH (08:06)
[2020-11-14] MEDS: FAMOTIDINE 20 MG TAB PO SCH (08:06)
[2020-11-14] MEDS: hydrALAZINE HCL 25 MG TAB PO SCH ×3 (08:06→23:04)
[2020-11-14] MEDS: FINASTERIDE 5 MG TAB PO SCH (08:06)
[2020-11-14] MEDS: FLUTICASONE 50MCG/SPRAY NASAL 16GM EA NOSTRIL SCH ×2 (08:07→19:59)
[2020-11-14] MEDS: ENOXAPARIN 40 MG/0.4 ML SYRINGE SQ SCH (08:07)
[2020-11-14] MEDS ORDERED: FUROSEMIDE 10 MG/ML 4 ML VIAL IV SCH (09:00)
[2020-11-14 09:12] LABS: Glucose,Whole Blood 372 mg/dL (75-99)
--- NOTE | 2020-11-14 09:46 | P.HPIM ---
History of Present Illness H&P Date: 11/13/20 Chief Complaint: SOB,Chest pain 70-year-old male presents with a complaint of shortness of breath. He states that it is much worse with any exertion. It initially started approximately 2 months ago but is much more severe over the past 2 weeks. He states that he has to sleep in a recliner as he cannot breathe if he lays flat. He complains of chronic lower extremity edema which may be somewhat worse. He states that he has had significant weight gain in the last month or so with abdominal distention. He also complains of some lower sternal chest pressure. He does h ave a history of coronary artery disease with 2 cardiac stents. He had 1 cardiac stent placed at our hospital in 2003. He had another cardiac stent placed in [place] in 2004. His last stress test was approximately one year ago and was purportedly normal. He denies any fevers or chills. He was recently started on an albuterol inhaler with minimal relief. He receives aspirin orally as well as Nitropaste topically. He received 80 mg of Lasix intravenously. The EKG shows evidence of a left bundle branch block with a normal sinus rhythm at a rate of 70. There is associated ST-T wave jackson ges with the left bundle branch block. The MA intervals 170, QRS duration is 150, and the QTC intervals 481. The chest x-ray overall did not show any acute process or definitive congestive heart failure. The laboratories reviewed and shows some mild renal insufficiency with slight elevation of the BNP. The troponin is negative. Due to the patient not showing overt congestive heart failure on diagnostics, it is felt as though a pulmonary embolism needs to be ruled out. The patient is agreeable with this. A computed tomography scan of the thorax with contrast was done and no evidence of pulmonary embolism is noted. No acute processes identified. Past Medical History Past Medical History: Diabetes Mellitus, Hyperlipidemia, Hypertension Additional Past Medical History / Comment(s): prostate disorder History of Any Multi-Drug Resistant Organisms: None Reported Past Surgical History: Heart Catheterization With Stent Additional Past Surgical History / Comment(s): thyroid removal 2020 with cheikh of vocal cords. Past Anesthesia/Blood Transfusion Reactions: No Reported Reaction Date of Last Stent Placement:: Past Psychological History: No Psychological Hx Reported Smoking Status: Never smoker Past Alcohol Use History: None Reported Past Drug Use History: None Reported Medications and Allergies Home Medications Medication Instructions Recorded Confirmed Type Albuterol Inhaler [Ventolin Hfa 1 puff INHALATION RT-DAILY 11/12/20 11/12/20 History Inhaler] Aspirin EC [Ecotrin Low Dose] 81 mg PO HS 11/12/20 11/12/20 History Atorvastatin [Lipitor] 80 mg PO HS 11/12/20 11/12/20 History Cetirizine HCl 10 mg PO DAILY 11/12/20 11/12/20 History Famotidine 40 mg PO DAILY 11/12/20 11/12/20 History Finasteride [Proscar] 5 mg PO DAILY 11/12/20 11/12/20 History Fluticasone Nasal [place] [Flonase 1 spray EA NOSTRIL BID 11/12/20 11/12/20 History Nasal [place]] Furosemide [Lasix] 20 mg PO DAILY 11/12/20 11/12/20 History Insulin Aspart [NovoLOG Flexpen] See Protocol SQ AC-TID 11/12/20 11/12/20 History Insulin Glargine,Hum.rec.anlog 30 unit SQ HS 11/12/20 11/12/20 History [Lantus Solostar] Isosorbide Mononitrate ER [Imdur] 30 mg PO DAILY 11/12/20 11/12/20 History Levothyroxine Sodium [Synthroid] 224 mcg PO DAILY 11/12/20 11/12/20 History Lidocaine 4% Cream [Lmx 4] 1 applic TOPICAL DAILY PRN 11/12/20 11/12/20 History Losartan [Cozaar] 50 mg PO DAILY 11/12/20 11/12/20 History Metoprolol Tartrate [Lopressor] 50 mg PO BID 11/12/20 11/12/20 History Multivitamins, Thera [Multivitamin 1 tab PO DAILY 11/12/20 11/12/20 History (formulary)] Allergies Allergy/AdvReac Type Severity Reaction Status Date / Time ampicillin Allergy Unknown Verified 11/12/20 19:07 Childhood codeine Allergy Unknown Verified 11/12/20 19:07 Iodinated Contrast Media Allergy Unknown Verified 11/12/20 19:07 Penicillins Allergy Unknown Verified 11/12/20 19:07 Childhood Tetanus Vaccines and Toxoid Allergy Unknown Verified 11/12/20 19:07 Physical Exam Vitals: Vital Signs Temp Pulse Pulse Resp BP BP Pulse Ox 11/13/20 03:35 98 F 71 16 149/65 96 11/12/20 23:31 78 18 144/68 95 11/12/20 20:54 98.4 F 70 16 139/65 100 11/12/20 18:58 68 20 164/80 100 11/12/20 17:33 72 20 165/80 100 11/12/20 15:20 71 20 173/81 97 11/12/20 14:46 97.6 F 65 20 192/73 96 Intake and Output 11/12/20 11/13/20 11/13/20 22:59 06:59 14:59 Other: Voiding Method Toilet Urinal # Voids 0 1 Weight 131.542 kg 129.8 kg GENERAL: The patient is well nourished and well hydrated. VITAL SIGNS: Heart rate, blood pressure, respiratory rate reviewed as recorded in nurse's notes. EYES: Pupils are round and reactive. Extraocular movements are intact. No conjunctival / lid redness or swelling. ENT: No external evidence of injury, swelling, or ecchymosis. Airway is patent. Throat is clear. NECK: Nontender. No swelling or evidence of injury. No subcutaneous emphysema. Trachea is midline. No thyroid mass. HEART: Regular rate and rhythm. Good peripheral pulses. Significant lower extremity edema noted bilaterally. LUNGS/CHEST: Diminished breath sounds bilaterally. No ecchymosis, subcutaneous emphysema, or tenderness. ABDOMEN: Abdomen soft without tenderness. No palpable masses or organomegaly. No peritoneal signs. No abdominal wall swelling or ecchymosis. EXTREMITIES: No extremity tenderness. Normal muscle tone and function. No thoracolumbar tenderness. Significant lower extremity edema noted bilaterally. NEUROLOGIC: Sensation is grossly intact. Cranial nerve exam reveals face is symmetrical, tongue is midline, speech is clear. SKIN: No abrasions or ecchymosis is noted. No induration or masses noted. PSYCHIATRIC: Alert and oriented. Appropriate behavior and judgment. Results CBC & Chem 7: 11/12/20 15:29 11/14/20 06:32 Labs: Abnormal Lab Results - Last 24 Hours (Table) 11/12/20 11/12/20 11/13/20 Range/Units 15:29 20:19 06:09 Sodium (137-145) mmol/L Potassium (3.5-5.1) mmol/L Chloride (98-107) mmol/L Carbon Dioxide 33 H (22-30) mmol/L BUN 22 H (9-20) mg/dL Creatinine 1.42 H (0.66-1.25) mg/dL Glucose 122 H (74-99) mg/dL POC Glucose (mg/dL) 145 H 378 H (75-99) mg/dL 11/13/20 Range/Units 06:51 Sodium 135 L (137-145) mmol/L Potassium 5.2 H (3.5-5.1) mmol/L Chloride 94 L (98-107) mmol/L Carbon Dioxide 31 H (22-30) mmol/L BUN 36 H (9-20) mg/dL Creatinine 1.80 H (0.66-1.25) mg/dL Glucose 442 H (74-99) mg/dL POC Glucose (mg/dL) (75-99) mg/dL Thrombosis Risk Factor Assmnt - Choose All That Apply Each Risk Factor Represents 2 Points: Age 61-74 years Thrombosis Risk Factor Assessment Total Risk Factor Score: 2 Thrombosis Risk Factor Assessment Level: Low Risk Assessment and Plan Assessment: 1. Exertional dyspnea/CHF - Patient remains on Lasix 40 mg IV every 8 hours; we'll continue to monitor strict BRUNO's, daily weights; continue with low-salt and fluid restricted diet - Cardiology is consulted and await further recommendations 2. Suspect lower extremity DVT - Bilateral lower extremity venous Doppler is ordered; continue with DVT prophylaxis at this time 3. Worsening renal injury; patient remains on IV Lasix and creatinine is slowly trending up; we will consult nephrology for further recommendations; hold off on IV fluids at this time; monitor strict BRUNO's, daily weights, renal function and electrolytes; avoid nephrotoxic agents; hold losartan until further evaluation b y nephro 4. Coronary artery disease status post PCI in 2003; stable at baseline on aspirin, atorvastatin, Imdur, Lopressor 5. Hypertension; continue with home dose of Lopressor and Imdur; losartan on hold due to renal injury 6. Dyslipidemia; Lipitor 80 mg by mouth 7. Diabetes mellitus; controlled with insulin; continue with Lantus 30 units subcu daily at bedtime along with Humalog sliding scale before every meal C 8. Hypothyroidism; levothyroxin 112 MCG daily DVT prophylaxis; SCDs/subcu Lovenox CODE STATUS; full code
[2020-11-14 10:59] LABS: Glucose,Whole Blood 397 mg/dL (75-99)
--- NOTE | 2020-11-14 11:24 | P.PN ---
Subjective Patient is seen in follow-up for acute kidney injury on chronic kidney disease. Patient follows with a head men's golf coach out of the [facility]. He is unsure as to what his baseline renal function is. Renal function slightly worse today. Good urine output. Edema improved since admission. Maintained on IV Lasix. No chest pain or shortness of breath. Vital signs are stable. General: The patient appeared well nourished and normally developed. HEENT: Head exam is unremarkable. Neck is without jugular venous distension. LUNGS: Breath sounds decreased. HEART: Rate and Rhythm are regular. ABDOMEN: Soft, nontender. EXTREMITITES: 2+ edema. Objective - Vital Signs Vital signs: Vital Signs Temp 98 F 11/13/20 20:00 Pulse 75 11/14/20 08:00 Resp 18 11/14/20 08:00 BP 141/63 11/14/20 08:00 Pulse Ox 97 11/14/20 08:00 Intake & Output 11/13/20 11/14/20 11/14/20 18:59 06:59 18:59 Intake Total 469 682.963 240.037 Output Total 750 1200 Balance -281 -517.037 240.037 Weight 129.1 kg 129 kg Intake: Intake, IV Titration 82.963 18.037 Amount Insulin Regular 100 unit 82.963 18.037 In Sodium Chloride 0.9% 100 ml @ Titrate IV .Q0M [facility] Rx#:[id number] Oral 469 600 222 Output: Urine 750 1200 Other: Voiding Method Toilet Toilet Urinal Urinal - Labs CBC & Chem 7: 11/12/20 15:29 11/14/20 06:32 Labs: Abnormal Lab Results - Last 24 Hours (Table) 11/13/20 11/13/20 11/13/20 Range/Units 11:53 12:28 16:56 Chloride (98-107) mmol/L Carbon Dioxide (22-30) mmol/L BUN (9-20) mg/dL Creatinine (0.66-1.25) mg/dL Glucose (74-99) mg/dL POC Glucose (mg/dL) 431 H 547 H (75-99) mg/dL Urine Glucose (UA) 4+ H (Negative) 11/13/20 11/13/20 11/13/20 Range/Units 16:57 20:38 21:52 Chloride (98-107) mmol/L Carbon Dioxide (22-30) mmol/L BUN (9-20) mg/dL Creatinine (0.66-1.25) mg/dL Glucose (74-99) mg/dL POC Glucose (mg/dL) 542 H 529 H 523 H (75-99) mg/dL Urine Glucose (UA) (Negative) 11/13/20 11/13/20 11/13/20 Range/Units 22:21 22:51 23:21 Chloride (98-107) mmol/L Carbon Dioxide (22-30) mmol/L BUN (9-20) mg/dL Creatinine (0.66-1.25) mg/dL Glucose (74-99) mg/dL POC Glucose (mg/dL) 424 H 369 H 247 H (75-99) mg/dL Urine Glucose (UA) (Negative) 11/14/20 11/14/20 11/14/20 Range/Units 03:02 05:01 06:32 Chloride 96 L (98-107) mmol/L Carbon Dioxide 33 H (22-30) mmol/L BUN 50 H (9-20) mg/dL Creatinine 1.96 H (0.66-1.25) mg/dL Glucose 163 H (74-99) mg/dL POC Glucose (mg/dL) 170 H 138 H (75-99) mg/dL Urine Glucose (UA) (Negative) 11/14/20 11/14/20 11/14/20 Range/Units 07:03 09:10 10:57 Chloride (98-107) mmol/L Carbon Dioxide (22-30) mmol/L BUN (9-20) mg/dL Creatinine (0.66-1.25) mg/dL Glucose (74-99) mg/dL POC Glucose (mg/dL) 149 H 372 H 397 H (75-99) mg/dL Urine Glucose (UA) (Negative) Assessment and Plan Plan: Assessment: 1. Acute kidney injury mostly prerenal secondary to cardiorenal syndrome. Creatinine 1.42 on admission and is 1.96 today. He also received IV contrast on 11/12/2020. UA benign. No hydronephrosis noted on kidney ultrasound. Left kidney is small in size. 2. Chronic kidney disease. Patient follows with head men's golf coach out of [facility]. Unknown baseline renal function. 3. Volume overload. Improving with diuresis. 4. Diabetes mellitus. 5. Acute diastolic CHF with ejection fraction of 50-55% with mild mitral and tricuspid regurgitation and pulmonary hypertension. 6. Mild hyperkalemia secondary to hyperglycemia. Improved. Plan: Maintain IV Lasix. I will give him an extra dose this afternoon. Low-salt diet and 1500 mL fluid restriction. Continue to monitor renal function and urine output. Hold losartan and add hydralazine. Tight blood sugar control. Change to torsemide 20 mg once daily upon discharge. Patient was advised to monitor his weight closely at home and to call if gains more than 3-4 pounds in one week duration.
--- NOTE | 2020-11-14 12:42 | P.PN ---
Subjective HISTORY OF PRESENTING ILLNESS This is a pleasant 70-year-old male past medical history significant for coronary artery disease status post PCI in 2003 at the [facility], hypertension, dyslipidemia, diabetes mellitus and morbid obesity. He follows in the office with the [facility]. He is seen and examined in no acute distress. He continues to be wheezing on exam. Ongoing shortness of breath. No chest pain, dizziness or palpitations. Blood pressure 141/67 heart rate 75 afebrile and maintaining oxygen saturation on room air. Laboratory data reviewed, sodium 137, potassium 4.6, creatinine 1.96 and magnesium 2.3. PHYSICAL EXAMINATION CONSTITUTIONAL: No apparent distress. HEENT: Head is normocephalic. Pupils are equal, round. Sclerae anicteric. Mucous membranes of the mouth are moist. No JVD. No carotid bruit. CHEST EXAMINATION: Expiratory wheezes, no rhonchi or rales. No chest wall tenderness is noted on palpation or with deep breathing. HEART EXAMINATION: Regular rate and rhythm. S1, S2 heard. No murmurs, gallops or rub. EXTREMITIES: 2+ peripheral pulses, bilateral lower extremity 2+ pitting edema and no calf tenderness. ASSESSMENT Exertional shortness of breath, clinically no heart failure. Consider pulmonary evaluation. Suspect lower extremity venous insufficiency Coronary artery disease status post PCI in 2003, exact details unavailable Left bundle branch block Acute kidney injury Hypertension Dyslipidemia Diabetes mellitus PLAN Clinically he is euvolemic. Lower extremity edema is chronic per the patient with no worsening. Renal function is getting worse on IV diuresis. Discussed with Dr. Landeros and we will discontinue IV lasix dose for this afternoon. He continues to wheeze and may require some IV steroids. Pulmonary evaluation pending. Recommend follow up with [facility] on discharge. We will follow along as needed. Nurse Practitioner note has been reviewed, I agree with a documented findings and plan of care. Patient was seen and examined. Objective - Vital Signs Vital signs: Vital Signs Temp 98 F 11/13/20 20:00 Pulse 75 11/14/20 11:38 Resp 18 11/14/20 11:38 BP 141/67 11/14/20 11:38 Pulse Ox 96 11/14/20 11:38 Intake & Output 11/13/20 11/14/20 11/14/20 18:59 06:59 18:59 Intake Total 469 682.963 240.037 Output Total 750 1200 1500 Balance -281 -517.037 -1259.963 Weight 129.1 kg 129 kg Intake: Intake, IV Titration 82.963 18.037 Amount Insulin Regular 100 unit 82.963 18.037 In Sodium Chloride 0.9% 100 ml @ Titrate IV .Q0M [facility] Rx#:[id number] Oral 469 600 222 Output: Urine 750 1200 1500 Other: Voiding Method Toilet Toilet Urinal Urinal # Voids 3 - Labs CBC & Chem 7: 11/12/20 15:29 11/14/20 06:32 Labs: Abnormal Lab Results - Last 24 Hours (Table) 11/13/20 11/13/20 11/13/20 Range/Units 12:28 16:56 16:57 Chloride (98-107) mmol/L Carbon Dioxide (22-30) mmol/L BUN (9-20) mg/dL Creatinine (0.66-1.25) mg/dL Glucose (74-99) mg/dL POC Glucose (mg/dL) 547 H 542 H (75-99) mg/dL Urine Glucose (UA) 4+ H (Negative) 11/13/20 11/13/20 11/13/20 Range/Units 20:38 21:52 22:21 Chloride (98-107) mmol/L Carbon Dioxide (22-30) mmol/L BUN (9-20) mg/dL Creatinine (0.66-1.25) mg/dL Glucose (74-99) mg/dL POC Glucose (mg/dL) 529 H 523 H 424 H (75-99) mg/dL Urine Glucose (UA) (Negative) 11/13/20 11/13/20 11/14/20 Range/Units 22:51 23:21 03:02 Chloride (98-107) mmol/L Carbon Dioxide (22-30) mmol/L BUN (9-20) mg/dL Creatinine (0.66-1.25) mg/dL Glucose (74-99) mg/dL POC Glucose (mg/dL) 369 H 247 H 170 H (75-99) mg/dL Urine Glucose (UA) (Negative) 11/14/20 11/14/20 11/14/20 Range/Units 05:01 06:32 07:03 Chloride 96 L (98-107) mmol/L Carbon Dioxide 33 H (22-30) mmol/L BUN 50 H (9-20) mg/dL Creatinine 1.96 H (0.66-1.25) mg/dL Glucose 163 H (74-99) mg/dL POC Glucose (mg/dL) 138 H 149 H (75-99) mg/dL Urine Glucose (UA) (Negative) 11/14/20 11/14/20 Range/Units 09:10 10:57 Chloride (98-107) mmol/L Carbon Dioxide (22-30) mmol/L BUN (9-20) mg/dL Creatinine (0.66-1.25) mg/dL Glucose (74-99) mg/dL POC Glucose (mg/dL) 372 H 397 H (75-99) mg/dL Urine Glucose (UA) (Negative)
[2020-11-14 13:00] LABS: Glucose,Whole Blood 245 mg/dL (75-99)
[2020-11-14] MEDS: INSULIN REGULAR 100 UNIT in SODIUM CHLORIDE 0.9% 100 ML IV SCH (13:08)
[2020-11-14 15:17] LABS: Glucose,Whole Blood 147 mg/dL (75-99)
[2020-11-14] MEDS ORDERED: FUROSEMIDE 10 MG/ML 4 ML VIAL IV ONE (16:00)
[2020-11-14] MEDS: IPRATROPIUM-ALBUTEROL 3 ML NEB INHALATION SCH ×2 (16:06→20:53)
[2020-11-14 16:16] LABS: Hemoglobin A1C 7.2 % (4.0-6.0)
[2020-11-14] MEDS: methylPREDNISolone SOD SUCCI 125 MG/2 ML VIAL IV SCH ×2 (16:25→23:04)
[2020-11-14 17:00] LABS: Glucose,Whole Blood 110 mg/dL (75-99)
[2020-11-14] MEDS: INSULIN ASPART (NovoLOG) 100 UNIT/ML VIAL SQ SCH (17:18)
[2020-11-14 18:17] LABS: Glucose,Whole Blood 207 mg/dL (75-99)
[2020-11-14 19:59] LABS: Glucose,Whole Blood 216 mg/dL (75-99)
[2020-11-14] MEDS: ATORVASTATIN 80 MG TAB PO SCH (20:00)
[2020-11-14 22:02] LABS: Glucose,Whole Blood 180 mg/dL (75-99)
[2020-11-15 00:08] LABS: Glucose,Whole Blood 181 mg/dL (75-99)
[2020-11-15 02:04] LABS: Glucose,Whole Blood 193 mg/dL (75-99)
[2020-11-15 04:01] LABS: Glucose,Whole Blood 217 mg/dL (75-99)
[2020-11-15 05:59] LABS: Glucose,Whole Blood 199 mg/dL (75-99)
[2020-11-15] MEDS: LEVOTHYROXINE 112 MCG TAB PO SCH (06:16)
[2020-11-15] MEDS: INSULIN ASPART (NovoLOG) 100 UNIT/ML VIAL SQ SCH ×3 (06:59→18:02)
[2020-11-15 07:00] LABS: Glucose,Whole Blood 283 mg/dL (75-99)
[2020-11-15] MEDS: ALBUTEROL HFA INHALER INHALATION SCH (07:01)
[2020-11-15] MEDS: IPRATROPIUM-ALBUTEROL 3 ML NEB INHALATION SCH ×4 (07:02→19:07)
[2020-11-15 07:58] LABS: Glucose,Whole Blood 372 mg/dL (75-99)
[2020-11-15] MEDS: FUROSEMIDE 40 MG TAB PO SCH (08:08)
[2020-11-15] MEDS: ASPIRIN 81 MG PO SCH (08:08)
[2020-11-15] MEDS: hydrALAZINE HCL 25 MG TAB PO SCH ×3 (08:08→19:43)
[2020-11-15] MEDS: FAMOTIDINE 20 MG TAB PO SCH (08:09)
[2020-11-15] MEDS: METOPROLOL TARTRATE 50 MG TAB PO SCH ×2 (08:09→19:42)
[2020-11-15] MEDS: MULTIVITAMINS, THERA 1 EACH TAB PO SCH (08:09)
[2020-11-15] MEDS: methylPREDNISolone SOD SUCCI 125 MG/2 ML VIAL IV SCH (08:09)
[2020-11-15] MEDS: ENOXAPARIN 40 MG/0.4 ML SYRINGE SQ SCH (08:09)
[2020-11-15] MEDS: LORATADINE 10 MG TAB PO SCH (08:09)
[2020-11-15] MEDS: FINASTERIDE 5 MG TAB PO SCH (08:09)
[2020-11-15] MEDS: FLUTICASONE 50MCG/SPRAY NASAL 16GM EA NOSTRIL SCH ×2 (08:10→19:43)
[2020-11-15] MEDS: INSULIN REGULAR 100 UNIT in SODIUM CHLORIDE 0.9% 100 ML IV SCH ×3 (08:12→21:34)
[2020-11-15] MEDS ORDERED: FUROSEMIDE 20 MG TAB PO SCH (09:00)
[2020-11-15 09:29] LABS: Calcium 8.9 mg/dL (8.4-10.2); Magnesium 2.2 mg/dL (1.6-2.3); Potassium 5.2 mmol/L (3.5-5.1)
[2020-11-15 10:04] LABS: Glucose,Whole Blood 344 mg/dL (75-99)
--- NOTE | 2020-11-15 11:33 | P.CNPUL ---
History of Present Illness Consult date: 11/15/20 Reason for consult: dyspnea History of present illness: An 78-year-old male patient with known history of CAD with previous PCI back in 2003 in addition to morbid obesity, diabetes mellitus and hypertension and hyperlipidemia. The patient was initially hospitalized for worsening shortness of breath. The patient follows up at the [facility] office and he was experiencing exertional dyspnea and for that reason he end up coming into the hospital. De nied having any angina. No palpitation. No significant cough or sputum production. No hemoptysis or pleurisy. The symptoms started approximately 2 weeks ago. The patient stated that he was leaving a recliner due to inability to breathe. He also complained of lower extremity edema which was getting worse and he had also increased in body weight and he also described some chest pressure/pain, nonspecified an estimated is known to have coronary artery disease with previous coronary stenting 2 last one being in 2003 performed in our hospital. Subsequently another stent was placed and after 2004. His latest cardiac stress test with approximately year ago and was reportedly normal. The patient's blood work at a time of admission showed a white cell 9.0 with hemoglobin of 13.6 and the platelets of 203 blood work showed a chronic kidney disease with a creatinine of 1.4-1.96 and this morning is down to 1.7. The patient has a component of metabolic alkalosis with a serum bicarb as high as 33. The patient also has normal LFTs, normal troponin, BNP level was 227, and UA was negative.: COVID 19 testing was also negative. The chest x-ray showed cardiomegaly and there was mild chronic parenchymal changes bilaterally without any suspicious of any focal infiltrates or effusions or pneumothorax. The patient did have some cardiomegaly. Based on that, a CT angiogram was performed and the CTA showed some patchy groundglass interstitial infiltrates in the lungs bilaterally mainly in the midlung area and there was borderline cardiomegaly without any pericardial effusion or pleural effusion or hilar or mediastinal masses. No evidence of any pulmonary embolism. Currently the patient has a pulse ox of 93% on room air oxygen. No echocardiogram was done and showed an ejection fraction of 50-55%, RV was normal, on a was normal, mild pulmonary hypertension with a PA pressure of 37, no significant valvular abnormalities noted, no pericardial effusion Review of Systems Constitutional: Reports fatigue, Reports weight gain Eyes: denies as per HPI, denies blurred vision, denies bulging eye, denies decreased vision, denies diplopia, denies discharge, denies dry eye, denies irritation, denies itching, denies pain, denies photophobia, denies loss of peripheral vision, denies loss of vision, denies tunnel vision/blind spots Ears: deny: decreased hearing, ear discharge, earache, tinnitus Ears, nose, mouth and throat: Reports as per HPI Cardiovascular: Reports decreased exercise tolerance, Reports dyspnea on exertion Respiratory: Reports dyspnea Genitourinary: Reports as per HPI Musculoskeletal: Reports as per HPI Musculoskeletal: bilateral: ankle swelling, absent: ankle pain, ankle stiffness Integumentary: Reports as per HPI Neurological: Reports as per HPI Psychiatric: Reports as per HPI Endocrine: Reports as per HPI Hematologic/Lymphatic: Reports as per HPI Allergic/Immunologic: Reports as per HPI Past Medical History Past Medical History: Coronary Artery Disease (CAD), Diabetes Mellitus, Hyperlipidemia, Hypertension, Thyroid Disorder Additional Past Medical History / Comment(s): prostate disorder History of Any Multi-Drug Resistant Organisms: None Reported Past Surgical History: Heart Catheterization With Stent Additional Past Surgical History / Comment(s): 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 Past Anesthesia/Blood Transfusion Reactions: No Reported Reaction Date of Last Stent Placement:: Past Psychological History: No Psychological Hx Reported Smoking Status: Never smoker Past Alcohol Use History: None Reported Past Drug Use History: None Reported Medications and Allergies Home Medications Medication Instructions Recorded Confirmed Type Albuterol Inhaler [Ventolin Hfa 1 puff INHALATION RT-DAILY 11/12/20 11/12/20 History Inhaler] Aspirin EC [Ecotrin Low Dose] 81 mg PO HS 11/12/20 11/12/20 History Atorvastatin [Lipitor] 80 mg PO HS 11/12/20 11/12/20 History Cetirizine HCl 10 mg PO DAILY 11/12/20 11/12/20 History Famotidine 40 mg PO DAILY 11/12/20 11/12/20 History Finasteride [Proscar] 5 mg PO DAILY 11/12/20 11/12/20 History Fluticasone Nasal [place] [Flonase 1 spray EA NOSTRIL BID 11/12/20 11/12/20 History Nasal Vernon] Furosemide [Lasix] 20 mg PO DAILY 11/12/20 11/12/20 History Insulin Aspart [NovoLOG Flexpen] See Protocol SQ AC-TID 11/12/20 11/12/20 His tory Insulin Glargine,Hum.rec.anlog 30 unit SQ HS 11/12/20 11/12/20 History [Lantus Solostar] Isosorbide Mononitrate ER [Imdur] 30 mg PO DAILY 11/12/20 11/12/20 History Levothyroxine Sodium [Synthroid] 224 mcg PO DAILY 11/12/20 11/12/20 History Lidocaine 4% Cream [Lmx 4] 1 applic TOPICAL DAILY PRN 11/12/20 11/12/20 History Losartan [Cozaar] 50 mg PO DAILY 11/12/20 11/12/20 History Metoprolol Tartrate [Lopressor] 50 mg PO BID 11/12/20 11/12/20 History Multivitamins, Thera [Multivitamin 1 tab PO DAILY 11/12/20 11/12/20 History (formulary)] Allergies Allergy/AdvReac Type Severity Reaction Status Date / Time ampicillin Allergy Unknown Verified 11/12/20 19:07 Childhood codeine Allergy Unknown Verified 11/12/20 19:07 Iodinated Contrast Media Allergy Unknown Verified 11/12/20 19:07 Penicillins Allergy Unknown Verified 11/12/20 19:07 Childhood Tetanus Vaccines and Toxoid Allergy Unknown Verified 11/12/20 19:07 Physical Exam Vitals: Vital Signs Temp Pulse Pulse Resp BP Pulse Ox 11/15/20 11:00 68 16 11/15/20 08:00 82 18 174/74 93 L 11/15/20 03:20 76 17 124/65 94 L 11/15/20 00:00 97.6 F 71 18 164/70 96 11/14/20 20:00 97.4 F L 75 16 132/63 93 L 11/14/20 16:00 64 18 153/69 98 11/14/20 11:38 75 18 141/67 96 Intake and Output 11/14/20 11/15/20 11/15/20 22:59 06:59 14:59 Intake Total 250.130 50.870 534.239 Output Total 600 900 Balance 250.130 -549.130 -365.761 Intake: Intake, IV Titration 50.130 50.870 34.239 Amount Insulin Regular 100 unit 50.130 50.870 34.239 In Sodium Chloride 0.9% 100 ml @ Titrate IV .Q0M [facility] Rx#:[id number] Oral 200 500 Output: Urine 600 900 Other: Voiding Method Toilet Urinal Weight 128.3 kg CONSTITUTIONAL: No apparent distress. Head exam was generally normal. There was no scleral icterus or corneal arcus. Mucous membranes were moist. HEENT: Head is normocephalic. Pupils are equal, round. Sclerae anicteric. Mucous membranes of the mouth are moist. No JVD. No carotid bruit. CHEST EXAMINATION: Expiratory wheezes, no rhonchi or rales. No chest wall tenderness is noted on palpation or with deep breathing. HEART EXAMINATION: Regular rate and rhythm. S1, S2 heard. No murmurs, gallops or rub. ABDOMEN: Soft, nontender. Positive bowel sounds. EXTREMITIES: 2+ peripheral pulses, bilateral lower extremity 2+ pitting edema and no calf tenderness. NEUROLOGIC EXAMINATION: Patient is awake, alert and oriented x3. Examination of the skin revealed no evidence of significant rashes, suspicious appearing nevi or other concerning lesions. Neurologically, the patient is awake and alert and the patient does not have any focal neurological deficit. Cranial nerves are essentially intact. Results - Laboratory Findings CBC and BMP: 11/12/20 15:29 11/15/20 08:29 PT/INR, D-dimer PT 10.4 sec (9.0-12.0) 11/12/20 15:29 INR 1.0 (<1.2) 11/12/20 15:29 D-Dimer 0.52 mg/L FEU (<0.60) 11/13/20 11:10 Abnormal lab findings: Abnormal Labs 11/12/20 11/12/20 11/13/20 15:29 20:19 06:09 Sodium Potassium Chloride Carbon Dioxide 33 H BUN 22 H Creatinine 1.42 H Glucose 122 H POC Glucose (mg/dL) 145 H 378 H Hemoglobin A1c Urine Glucose (UA) 11/13/20 11/13/20 11/13/20 06:51 11:53 12:28 Sodium 135 L Potassium 5.2 H Chloride 94 L Carbon Dioxide 31 H BUN 36 H Creatinine 1.80 H Glucose 442 H POC Glucose (mg/dL) 431 H Hemoglobin A1c Urine Glucose (UA) 4+ H 11/13/20 11/13/20 11/13/20 16:56 16:57 20:38 Sodium Potassium Chloride Carbon Dioxide BUN Creatinine Glucose POC Glucose (mg/dL) 547 H 542 H 529 H Hemoglobin A1c Urine Glucose (UA) 11/13/20 11/13/20 11/13/20 21:52 22:21 22:51 Sodium Potassium Chloride Carbon Dioxide BUN Creatinine Glucose POC Glucose (mg/dL) 523 H 424 H 369 H Hemoglobin A1c Urine Glucose (UA) 11/13/20 11/14/20 11/14/20 23:21 03:02 05:01 Sodium Potassium Chloride Carbon Dioxide BUN Creatinine Glucose POC Glucose (mg/dL) 247 H 170 H 138 H Hemoglobin A1c Urine Glucose (UA) 11/14/20 11/14/20 11/14/20 06:32 06:32 07:03 Sodium Potassium Chloride 96 L Carbon Dioxide 33 H BUN 50 H Creatinine 1.96 H Glucose 163 H POC Glucose (mg/dL) 149 H Hemoglobin A1c 7.2 H Urine Glucose (UA) 11/14/20 11/14/20 11/14/20 09:10 10:57 12:59 Sodium Potassium Chloride Carbon Dioxide BUN Creatinine Glucose POC Glucose (mg/dL) 372 H 397 H 245 H Hemoglobin A1c Urine Glucose (UA) 11/14/20 11/14/20 11/14/20 15:14 16:56 18:13 Sodium Potassium Chloride Carbon Dioxide BUN Creatinine Glucose POC Glucose (mg/dL) 147 H 110 H 207 H Hemoglobin A1c Urine Glucose (UA) 11/14/20 11/14/20 11/15/20 19:57 22:00 00:06 Sodium Potassium Chloride Carbon Dioxide BUN Creatinine Glucose POC Glucose (mg/dL) 216 H 180 H 181 H Hemoglobin A1c Urine Glucose (UA) 11/15/20 11/15/20 11/15/20 02:03 03:57 05:57 Sodium Potassium Chloride Carbon Dioxide BUN Creatinine Glucose POC Glucose (mg/dL) 193 H 217 H 199 H Hemoglobin A1c Urine Glucose (UA) 11/15/20 11/15/20 11/15/20 06:59 07:56 08:29 Sodium 134 L Potassium 5.2 H Chloride 96 L Carbon Dioxide BUN 46 H Creatinine 1.71 H Glucose 391 H POC Glucose (mg/dL) 283 H 372 H Hemoglobin A1c Urine Glucose (UA) 11/15/20 10:03 Sodium Potassium Chloride Carbon Dioxide BUN Creatinine Glucose POC Glucose (mg/dL) 344 H Hemoglobin A1c Urine Glucose (UA) - Diagnostic Findings Chest x-ray: image reviewed CT scan - chest: image reviewed Assessment and Plan Plan: 1 shortness of breath, multifactorial, predominantly secondary to fluid overload and possibly a component of cardiac asthma. The sclerae of the chest and there was some vague groundglass changes consistent with fluid. Doubt viral pneumonia. Doubt interstitial lung disease. The patient is responding to diuretics. The patient is in fluid overloaded. 2 obesity with a BMI of 43. 3 possible obstructive sleep apnea 4 coronary artery disease with previous coronary stenting 5 hypertension 6 hyperlipidemia 7 hypothyroidism 8 previous history of hemithyroidectomy 9 Diabetes mellitus 10 chronic stage III kidney disease Plan Lasix 40 mg IV push to 12 hours Continue albuterol nebulized treatments around the clock The patient is bronchospastic. Nevertheless the patient is also diabetic and systemic steroids has caused significant hyperglycemia. The patient will be placed on 30 mg of prednisone as a part of the burst taper and will monitor his blood sugars The workup has been noted and appreciated Monitor the electrolytes and urine output
--- NOTE | 2020-11-15 11:45 | P.PN ---
Subjective Patient is seen in follow-up for acute kidney injury on chronic kidney disease. Patient follows with a call center representative out of the [facility]. He is unsure as to what his baseline renal function is. Renal function better today. Good urine output. Edema improved since admission. Maintained on oral Lasix. No chest pain or shortness of breath. Patient does state that the edema in his lower extremities is chronic to an extent. Blood sugars remain elevated. Vital signs are stable. General: The patient appeared well nourished and normally developed. HEENT: Head exam is unremarkable. Neck is without jugular venous distension. LUNGS: Breath sounds decreased. HEART: Rate and Rhythm are regular. ABDOMEN: Soft, nontender. EXTREMITITES: 1+ edema. Objective - Vital Signs Vital signs: Vital Signs Temp 97.6 F 11/15/20 00:00 Pulse 70 11/15/20 11:07 Resp 18 11/15/20 11:07 BP 174/74 11/15/20 08:00 Pulse Ox 93 L 11/15/20 08:00 Intake & Output 11/14/20 11/15/20 11/15/20 18:59 06:59 18:59 Intake Total 590.767 75.270 534.239 Output Total 1500 600 900 Balance -909.233 -524.730 -365.761 Weight 128.3 kg Intake: Intake, IV Titration 43.767 75.270 34.239 Amount Insulin Regular 100 unit 43.767 75.270 34.239 In Sodium Chloride 0.9% 100 ml @ Titrate IV .Q0M [facility] Rx#:[id number] Oral 547 500 Output: Urine 1500 600 900 Other: Voiding Method Toilet Urinal # Voids 3 - Labs CBC & Chem 7: 11/12/20 15:29 11/15/20 08:29 Labs: Abnormal Lab Results - Last 24 Hours (Table) 11/14/20 11/14/20 11/14/20 Range/Units 06:32 12:59 15:14 Sodium (137-145) mmol/L Potassium (3.5-5.1) mmol/L Chloride (98-107) mmol/L BUN (9-20) mg/dL Creatinine (0.66-1.25) mg/dL Glucose (74-99) mg/dL POC Glucose (mg/dL) 245 H 147 H (75-99) mg/dL Hemoglobin A1c 7.2 H (4.0-6.0) % 11/14/20 11/14/20 11/14/20 Range/Units 16:56 18:13 19:57 Sodium (137-145) mmol/L Potassium (3.5-5.1) mmol/L Chloride (98-107) mmol/L BUN (9-20) mg/dL Creatinine (0.66-1.25) mg/dL Glucose (74-99) mg/dL POC Glucose (mg/dL) 110 H 207 H 216 H (75-99) mg/dL Hemoglobin A1c (4.0-6.0) % 11/14/20 11/15/20 11/15/20 Range/Units 22:00 00:06 02:03 Sodium (137-145) mmol/L Potassium (3.5-5.1) mmol/L Chloride (98-107) mmol/L BUN (9-20) mg/dL Creatinine (0.66-1.25) mg/dL Glucose (74-99) mg/dL POC Glucose (mg/dL) 180 H 181 H 193 H (75-99) mg/dL Hemoglobin A1c (4.0-6.0) % 11/15/20 11/15/20 11/15/20 Range/Units 03:57 05:57 06:59 Sodium (137-145) mmol/L Potassium (3.5-5.1) mmol/L Chloride (98-107) mmol/L BUN (9-20) mg/dL Creatinine (0.66-1.25) mg/dL Glucose (74-99) mg/dL POC Glucose (mg/dL) 217 H 199 H 283 H (75-99) mg/dL Hemoglobin A1c (4.0-6.0) % 11/15/20 11/15/20 11/15/20 Range/Units 07:56 08:29 10:03 Sodium 134 L (137-145) mmol/L Potassium 5.2 H (3.5-5.1) mmol/L Chloride 96 L (98-107) mmol/L BUN 46 H (9-20) mg/dL Creatinine 1.71 H (0.66-1.25) mg/dL Glucose 391 H (74-99) mg/dL POC Glucose (mg/dL) 372 H 344 H (75-99) mg/dL Hemoglobin A1c (4.0-6.0) % Assessment and Plan Plan: Assessment: 1. Acute kidney injury mostly prerenal secondary to cardiorenal syndrome. Cre atinine 1.42 on admission and peaked at 1.96 - 1.71 today. He also received IV contrast on 11/12/2020. UA benign. No hydronephrosis noted on kidney ultrasound. Left kidney is small in size. 2. Chronic kidney disease. Patient follows with call center representative out of [facility]. Unknown baseline renal function. 3. Volume overload. Improved with diuresis. 4. Diabetes mellitus. 5. Acute diastolic CHF with ejection fraction of 50-55% with mild mitral and tricuspid regurgitation and pulmonary hypertension. 6. Mild hyperkalemia secondary to hyperglycemia. Plan: Maintain oral Lasix 40 mg once daily. Low-salt diet and 1500 mL fluid restriction. Continue to monitor renal function and urine output. Hold losartan. Tight blood sugar control. Patient was advised to monitor his weight closely at home and to call if gains more than 3-4 pounds in one week duration.
[2020-11-15 11:47] LABS: Glucose,Whole Blood 267 mg/dL (75-99)
--- NOTE | 2020-11-15 12:40 | CDI ---
Documentation Clarification Form Date: 11/15/2020 12:19:55 PM From: Marie Camejo CCS, CCDS Admit Date: 11/15/2020 11:17:00 AM Patient Name: Mendel Calles Visit Number: [id number] Discharge Date: ATTENTION: The Clinical Documentation Specialists (CDI) and [facility] Coding Staff appreciate your assistance in clarifying documentation. Please respond to the clarification below the line at the bottom and electronically sign. The CDI & [facility] Coding staff will review the response and follow-up if needed. Please note: Queries are made part of the Legal Health Record. If you have any questions, please contact the author of this message via ITS. Dr. Srikanth Duran: There is conflicting documentation regarding the diagnosis of Congestive Heart Failure: Per the 11/13 History & Physical: Exertional dyspnea/CHF. Per the 11/13 Cardiology Consult: Exertional shortness of breath, clinically no heart failure. Consider pulmonary evaluation. Per the 11/14 Electronic Specialist Progress Note: Acute diastolic CHF with ejection fraction of 50-55% with mild mitral and tricuspid regurgitation and pulmonary hypertension." Per the 11/15 Pulmonary Consult: shortness of breath, multifactorial, predominantly secondary to fluid overload and possibly a component of cardiac asthma. The CXR of the chest, there was some vague ground glass changes consistent with fluid. Doubt viral pneumonia. Doubt interstitial lung disease. The patient is responding to diuretics. The patient is in fluid overloaded. History/Risk Factors per the 11/13 History & Physical Past Medical History: CAD status post PCI 2003 & 2004, IDDM II, Hypertension, Hyperlipidemia, Prostate Disorder nos. Clinical Indicators: Presented to the ED on 11/12 with Chest Pain, SOB, Lower extremity edema with significant weight gain (15 lbs) in past few months and lower sternal chest pressure. Clinical Impression: Dyspnea, Chest pain, Congestive heart failure, Unstable angina, Left BBB, Hypertension, Obesity, History of coronary artery disease, Renal insufficiency. Admitted to Observation status 11/12, Admitted to Inpatient status on 11/15. 11/12 VS: T 97.6, P 65, R 20 (SOB), BP 192/73,, PO 96 RA - 100 2Lnc 11/15 VS: T 97.6, P 71, R 18 (SOB), BP 164/70, PO 96 RA - 94 RA, BMI: 43.0 11/12 BNP 227 11/13 Echocardiogram Results: Morbid Obesity, Mild LVH, Systolic low normal w/EF 50-55%, Mild aortic stenosis, Mild MR, Mild TR, Mild Pulmonary Hypertension. 11/12 Chest X Ray: Chronic change and cardiomegaly without acute process. 11/12 CT chest: Interstitial pulmonary filtrates could relate to some pulmonary fibrosis, no PE. 11/12 EKG: R 70 nsr, LBBB Treatment 11/12: po Aspirin, Nitropaste, IV Lasix 80 mg x1, IV Solumedrol, O2 2Lnc 11/13: IV Lasix 40 mg q8H, INH Ventolin 11/14: po Aspirin, IV Lasix 40 mg Daily, INH Duoneb, IV Solumedrol 11/15: po Lasix 40 mg Daily, po Prednisone 30 mg Daily (Ordered) In your professional opinion, can you please clarify the acuity and type of CHF if known? Heart Failure ruled out Heart Failure ruled in: o Systolic Heart Failure: Acute Chronic Acute on Chronic o Diastolic Heart Failure: Acute Chronic Acute on Chronic o Systolic & Diastolic Heart Failure: Acute Chronic Acute on Chronic Heart Failure Unable to Determine Other, please specify (Last Revision: December 2017) Acute diastolic CHF MTDD
[2020-11-15 14:06] LABS: Glucose,Whole Blood 293 mg/dL (75-99)
--- NOTE | 2020-11-15 14:59 | P.PN ---
Subjective Progress Note Date: 11/14/20 Principal diagnosis: Exertional dyspnea/CHF Acute exacerbation COPD Hyperglycemia 70-year-old male presents with a complaint of shortness of breath. He states that it is much worse with any exertion. It initially started approximately 2 months ago but is much more severe over the past 2 weeks. He states that he has to sleep in a recliner as he cannot breathe if he lays flat. He complains of chronic lower extremity edema which may be somewhat worse. He states that he has had significant weight gain in the last month or so with abdominal distenti on. He also complains of some lower sternal chest pressure. He does have a history of coronary artery disease with 2 cardiac stents. He had 1 cardiac stent placed at our hospital in 2003. He had another cardiac stent placed in [place] in 2004. His last stress test was approximately one year ago and was purportedly normal. He denies any fevers or chills. He was recently started on an albuterol inhaler with minimal relief. Objective - Vital Signs Vital signs: Vital Signs Temp 98 F 11/13/20 20:00 Pulse 75 11/14/20 08:00 Resp 18 11/14/20 08:00 BP 141/63 11/14/20 08:00 Pulse Ox 97 11/14/20 08:00 Intake & Output 11/13/20 11/14/20 11/14/20 18:59 06:59 18:59 Intake Total 469 682.963 232.537 Output Total 750 1200 Balance -281 -517.037 232.537 Weight 129.1 kg 129 kg Intake: Intake, IV Titration 82.963 10.537 Amount Insulin Regular 100 unit 82.963 10.537 In Sodium Chloride 0.9% 100 ml @ Titrate IV .Q0M [facility] OF [facility] Rx#:[id number] Oral 469 600 222 Output: Urine 750 1200 Other: Voiding Method Toilet Toilet Urinal Urinal - Exam - Constitutional General appearance: Present: average body habitus, cooperative, no acute distress - EENT Eyes: Present: anicteric sclerae, EOMI, PERRLA, normal appearance ENT: Present: hearing grossly normal, normal oropharynx Ears: bilateral: normal - Neck Neck: Present: normal ROM. Absent: lymphadenopathy, rigidity, thyromegaly Carotids: negative: bruit present Thyroid: bilateral: normal size, negative: enlarged, nodule - Respiratory Respiratory: bilateral: CTA, negative: rales, rhonchi, wheezing - Cardiovascular Rhythm: regular Heart sounds: normal: S1, S2 Abnormal Heart Sounds: Absent: systolic murmur, diastolic murmur - Gastrointestinal General gastrointestinal: Present: normal bowel sounds, soft. Absent: distended, organomegaly, tenderness - Genitourinary Genitourinary Comment(s): deferred - Integumentary Integumentary: Present: normal turgor. Absent: jaundiced, rash, ulcer - Neurologic Neurologic: Present: CNII-XII intact. Absent: focal deficits - Musculoskeletal Musculoskeletal: Present: gait normal, strength equal bilaterally - Psychiatric Psychiatric: Present: A&O x's 3, appropriate affect, intact judgment & insight - Labs CBC & Chem 7: 11/12/20 15:29 11/15/20 08:29 Labs: Abnormal Lab Results - Last 24 Hours (Table) 11/13/20 11/13/20 11/13/20 Range/Units 11:53 12:28 16:56 Chloride (98-107) mmol/L Carbon Dioxide (22-30) mmol/L BUN (9-20) mg/dL Creatinine (0.66-1.25) mg/dL Glucose (74-99) mg/dL POC Glucose (mg/dL) 431 H 547 H (75-99) mg/dL Urine Glucose (UA) 4+ H (Negative) 11/13/20 11/13/20 11/13/20 Range/Units 16:57 20:38 21:52 Chloride (98-107) mmol/L Carbon Dioxide (22-30) mmol/L BUN (9-20) mg/dL Creatinine (0.66-1.25) mg/dL Glucose (74-99) mg/dL POC Glucose (mg/dL) 542 H 529 H 523 H (75-99) mg/dL Urine Glucose (UA) (Negative) 11/13/20 11/13/20 11/13/20 Range/Units 22:21 22:51 23:21 Chloride (98-107) mmol/L Carbon Dioxide (22-30) mmol/L BUN (9-20) mg/dL Creatinine (0.66-1.25) mg/dL Glucose (74-99) mg/dL POC Glucose (mg/dL) 424 H 369 H 247 H (75-99) mg/dL Urine Glucose (UA) (Negative) 11/14/20 11/14/20 11/14/20 Range/Units 03:02 05:01 06:32 Chloride 96 L (98-107) mmol/L Carbon Dioxide 33 H (22-30) mmol/L BUN 50 H (9-20) mg/dL Creatinine 1.96 H (0.66-1.25) mg/dL Glucose 163 H (74-99) mg/dL POC Glucose (mg/dL) 170 H 138 H (75-99) mg/dL Urine Glucose (UA) (Negative) 11/14/20 11/14/20 Range/Units 07:03 09:10 Chloride (98-107) mmol/L Carbon Dioxide (22-30) mmol/L BUN (9-20) mg/dL Creatinine (0.66-1.25) mg/dL Glucose (74-99) mg/dL POC Glucose (mg/dL) 149 H 372 H (75-99) mg/dL Urine Glucose (UA) (Negative) Assessment and Plan Assessment: 1. Exertional dyspnea/CHF - Patient remains on Lasix 40 mg IV every 8 hours; we'll continue to monitor strict BRUNO's, daily weights; continue with low-salt and fluid restricted diet - Cardiology is consulted and await further recommendations 2. Suspect lower extremity DVT - Bilateral lower extremity venous Doppler is ordered; continue with DVT prophylaxis at this time 3. Worsening renal injury; patient remains on IV Lasix and creatinine is slowly trending up; we will consult nephrology for further recommendations; hold off on IV fluids at this time; monitor strict BRUNO's, daily weights, renal function and electrolytes; avoid nephrotoxic agents; hold losartan until further evaluation by nephro 4. Coronary artery disease status post PCI in 2003; stable at baseline on aspirin, atorvastatin, Imdur, Lopressor 5. Hypertension; continue with home dose of Lopressor and Imdur; losartan on hold due to renal injury 6. Dyslipidemia; Lipitor 80 mg by mouth 7. Diabetes mellitus; controlled with insulin; continue with Lantus 30 units subcu daily at bedtime along with Humalog sliding scale before every meal C 8. Hypothyroidism; levothyroxin 112 MCG daily DVT prophylaxis; SCDs/subcu Lovenox CODE STATUS; full code
--- NOTE | 2020-11-15 15:03 | P.PN ---
Subjective Progress Note Date: 11/15/20 Principal diagnosis: Exertional dyspnea/CHF Acute exacerbation COPD Hyperglycemia 70-year-old male presents with a complaint of shortness of breath. He states that it is much worse with any exertion. It initially started approximately 2 months ago but is much more severe over the past 2 weeks. He states that he has to sleep in a recliner as he cannot breathe if he lays flat. He complains of chronic lower extremity edema which may be somewhat worse. He states that he has had significant weight gain in the last month or so with abdominal distenti on. He also complains of some lower sternal chest pressure. He does have a history of coronary artery disease with 2 cardiac stents. He had 1 cardiac stent placed at our hospital in 2003. He had another cardiac stent placed in [place] in 2004. His last stress test was approximately one year ago and was purportedly normal. He denies any fevers or chills. He was recently started on an albuterol inhaler with minimal relief. 11/15/2020 Patient is seen and evaluated sitting up in bedside chair; family at bedside Patient has been evaluated by pulmonary service and recommended to continue with Lasix 40 mg IV push to 12 hours Continue albuterol nebulized treatments around the clock The patient continues to have severe bronchospasm; systemic steroids has caused significant hyperglycemia. The patient will be placed on 30 mg of prednisone as a part of the burst taper and will monitor his blood sugars Objective - Vital Signs Vital signs: Vital Signs Temp 97.6 F 11/15/20 00:00 Pulse 70 11/15/20 11:07 Resp 18 11/15/20 11:07 BP 174/74 11/15/20 08:00 Pulse Ox 93 L 11/15/20 08:00 Intake & Output 11/14/20 11/15/20 11/15/20 18:59 06:59 18:59 Intake Total 590.767 75.270 534.239 Output Total 1500 600 900 Balance -909.233 -524.730 -365.761 Weight 128.3 kg Intake: Intake, IV Titration 43.767 75.270 34.239 Amount Insulin Regular 100 unit 43.767 75.270 34.239 In Sodium Chloride 0.9% 100 ml @ Titrate IV .Q0M [facility] Rx#:[id number] Oral 547 500 Output: Urine 1500 600 900 Other: Voiding Method Toilet Urinal # Voids 3 - Exam - Constitutional General appearance: Present: average body habitus, cooperative, no acute distress - EENT Eyes: Present: anicteric sclerae, EOMI, PERRLA, normal appearance ENT: Present: hearing grossly normal, normal oropharynx Ears: bilateral: normal - Neck Neck: Present: normal ROM. Absent: lymphadenopathy, rigidity, thyromegaly Carotids: negative: bruit present Thyroid: bilateral: normal size, negative: enlarged, nodule - Respiratory Respiratory: bilateral: CTA, negative: rales, rhonchi, wheezing - Cardiovascular Rhythm: regular Heart sounds: normal: S1, S2 Abnormal Heart Sounds: Absent: systolic murmur, diastolic murmur - Gastrointestinal General gastrointestinal: Present: normal bowel sounds, soft. Absent: distended, organomegaly, tenderness - Genitourinary Genitourinary Comment(s): deferred - Integumentary Integumentary: Present: normal turgor. Absent: jaundiced, rash, ulcer - Neurologic Neurologic: Present: CNII-XII intact. Absent: focal deficits - Musculoskeletal Musculoskeletal: Present: gait normal, strength equal bilaterally - Psychiatric Psychiatric: Present: A&O x's 3, appropriate affect, intact judgment & insight - Labs CBC & Chem 7: 11/12/20 15:29 11/15/20 08:29 Labs: Abnormal Lab Results - Last 24 Hours (Table) 11/14/20 11/14/20 11/14/20 Range/Units 06:32 12:59 15:14 Sodium (137-145) mmol/L Potassium (3.5-5.1) mmol/L Chloride (98-107) mmol/L BUN (9-20) mg/dL Creatinine (0.66-1.25) mg/dL Glucose (74-99) mg/dL POC Glucose (mg/dL) 245 H 147 H (75-99) mg/dL Hemoglobin A1c 7.2 H (4.0-6.0) % 11/14/20 11/14/20 11/14/20 Range/Units 16:56 18:13 19:57 Sodium (137-145) mmol/L Potassium (3.5-5.1) mmol/L Chloride (98-107) mmol/L BUN (9-20) mg/dL Creatinine (0.66-1.25) mg/dL Glucose (74-99) mg/dL POC Glucose (mg/dL) 110 H 207 H 216 H (75-99) mg/dL Hemoglobin A1c (4.0-6.0) % 11/14/20 11/15/20 11/15/20 Range/Units 22:00 00:06 02:03 Sodium (137-145) mmol/L Potassium (3.5-5.1) mmol/L Chloride (98-107) mmol/L BUN (9-20) mg/dL Creatinine (0.66-1.25) mg/dL Glucose (74-99) mg/dL POC Glucose (mg/dL) 180 H 181 H 193 H (75-99) mg/dL Hemoglobin A1c (4.0-6.0) % 11/15/20 11/15/20 11/15/20 Range/Units 03:57 05:57 06:59 Sodium (137-145) mmol/L Potassium (3.5-5.1) mmol/L Chloride (98-107) mmol/L BUN (9-20) mg/dL Creatinine (0.66-1.25) mg/dL Glucose (74-99) mg/dL POC Glucose (mg/dL) 217 H 199 H 283 H (75-99) mg/dL Hemoglobin A1c (4.0-6.0) % 11/15/20 11/15/20 11/15/20 Range/Units 07:56 08:29 10:03 Sodium 134 L (137-145) mmol/L Potassium 5.2 H (3.5-5.1) mmol/L Chloride 96 L (98-107) mmol/L BUN 46 H (9-20) mg/dL Creatinine 1.71 H (0.66-1.25) mg/dL Glucose 391 H (74-99) mg/dL POC Glucose (mg/dL) 372 H 344 H (75-99) mg/dL Hemoglobin A1c (4.0-6.0) %
[2020-11-15 16:20] LABS: Glucose,Whole Blood 230 mg/dL (75-99)
[2020-11-15 18:01] LABS: Glucose,Whole Blood 214 mg/dL (75-99)
[2020-11-15] MEDS: ATORVASTATIN 80 MG TAB PO SCH (19:43)
[2020-11-15 20:06] LABS: Glucose,Whole Blood 277 mg/dL (75-99)
[2020-11-15 22:02] LABS: Glucose,Whole Blood 220 mg/dL (75-99)
[2020-11-16 00:03] LABS: Glucose,Whole Blood 165 mg/dL (75-99)
[2020-11-16 02:00] LABS: Glucose,Whole Blood 173 mg/dL (75-99)
[2020-11-16 04:36] LABS: Glucose,Whole Blood 233 mg/dL (75-99)
[2020-11-16] MEDS: LEVOTHYROXINE 112 MCG TAB PO SCH (05:58)
[2020-11-16 05:59] LABS: Glucose,Whole Blood 189 mg/dL (75-99)
[2020-11-16 07:53] LABS: Glucose,Whole Blood 157 mg/dL (75-99)
[2020-11-16] MEDS: INSULIN ASPART (NovoLOG) 100 UNIT/ML VIAL SQ SCH ×4 (08:21→17:32)
[2020-11-16 08:51] LABS: Calcium 9.3 mg/dL (8.4-10.2); Potassium 5.3 mmol/L (3.5-5.1)
[2020-11-16] MEDS: FUROSEMIDE 40 MG TAB PO SCH (09:00)
[2020-11-16] MEDS: hydrALAZINE HCL 25 MG TAB PO SCH ×3 (09:00→20:31)
[2020-11-16] MEDS: LORATADINE 10 MG TAB PO SCH (09:00)
[2020-11-16] MEDS: predniSONE 10 MG TAB PO SCH (09:00)
[2020-11-16] MEDS: FINASTERIDE 5 MG TAB PO SCH (09:01)
[2020-11-16] MEDS: ASPIRIN 81 MG PO SCH (09:01)
[2020-11-16] MEDS: FAMOTIDINE 20 MG TAB PO SCH (09:01)
[2020-11-16] MEDS: FLUTICASONE 50MCG/SPRAY NASAL 16GM EA NOSTRIL SCH ×2 (09:01→20:32)
[2020-11-16] MEDS: METOPROLOL TARTRATE 50 MG TAB PO SCH ×2 (09:01→20:31)
[2020-11-16] MEDS: MULTIVITAMINS, THERA 1 EACH TAB PO SCH (09:01)
[2020-11-16] MEDS: ENOXAPARIN 40 MG/0.4 ML SYRINGE SQ SCH (09:01)
[2020-11-16] MEDS: IPRATROPIUM-ALBUTEROL 3 ML NEB INHALATION SCH ×4 (09:29→20:09)
[2020-11-16] MEDS: ALBUTEROL HFA INHALER INHALATION SCH (09:32)
[2020-11-16] MEDS ORDERED: polyethylene glycoL 3350 17 GM POWD.PACK PO STA (09:47)
--- NOTE | 2020-11-16 10:38 | P.PN ---
Subjective Progress Note Date: 11/16/20 An 78-year-old male patient with known history of CAD with previous PCI back in 2003 in addition to morbid obesity, diabetes mellitus and hypertension and hyperlipidemia. The patient was initially hospitalized for worsening shortness of breath. [place] and he was experiencing exertional dyspnea and for that reason he end up coming into the hospital. Denied having any angina. No palpitation. No significant cough or sputum production. No hemoptysis or pleurisy. The symptoms started approximately 2 weeks ago. The patient stated that he was leaving a recliner due to inability to breathe. He also complained of lower extremity edema which was getting worse and he had also increased in body weight and he also described some chest pressure/pain, nonspecified an estimated is known to have coronary artery disease with previous coronary stenting 2 last one being in 2003 performed in our hospital. Subsequently another stent was placed and after 2004. His latest cardiac stress test with approximately year ago and was reportedly normal. The patient's blood work at a time of admission showed a white cell 9.0 with hemoglobin of 13.6 and the platelets of 203 blood work showed a chronic kidney disease with a creatinine of 1.4-1.96 and this morning is down to 1.7. The patient has a component of metabolic alkalosis with a serum bicarb as high as 33. The patient also has normal LFTs, normal troponin, BNP level was 227, and UA was negative.: COVID 19 testing was also negative. The chest x-ray showed cardiomegaly and there was mild chronic parenchymal changes bilaterally without any suspicious of any focal infiltrates or effusions or pneumothorax. The patient did have some cardiomegaly. Based on that, a CT angiogram was performed and the CTA showed some patchy groundglass interstitial infiltrates in the lungs bilaterally mainly in the midlung area and there was borderline cardiomegaly without any pericardial effusion or pleural effusion or hilar or mediastinal masses. No evidence of any pulmonary embolism. Currently the patient has a pul se ox of 93% on room air oxygen. No echocardiogram was done and showed an ejection fraction of 50-55%, RV was normal, on a was normal, mild pulmonary hypertension with a PA pressure of 37, no significant valvular abnormalities noted, no pericardial effusion 11/16/2020 the patient is being diuresed with IV Lasix and he was responding nicely and his fluid balance was negative in the order of 1.4 L. He was switched to oral Lasix by cardiology today. I took him off the IV Solu-Medrol and the patient was getting also hyperglycemia and the patient is currently on a prednisone burst taper starting with 30 mg on a daily basis.. Echocardiogram was noted. CT angios was noted. He is on IV fluids and he is also on insulin drip at 4 units an hour. IV fluids need to be dropped to KVO. Less bron chospastic and wheezy compared to yesterday. No chest pain. Objective - Vital Signs Vital signs: Vital Signs Temp 97.8 F 11/16/20 08:00 Pulse 84 11/16/20 09:43 Resp 18 11/16/20 08:00 BP 135/67 11/16/20 08:00 Pulse Ox 98 11/16/20 08:00 Intake & Output 11/15/20 11/16/20 11/16/20 18:59 06:59 18:59 Intake Total 841.000 758.822 113.054 Output Total 900 950 Balance -59.000 -191.178 113.054 Weight 128.5 kg Intake: Intake, IV Titration 101.000 78.822 13.054 Amount Insulin Regular 100 unit 101.000 78.822 13.054 In Sodium Chloride 0.9% 100 ml @ Titrate IV .Q0M [facility] Rx#:[id number] Oral 740 680 100 Output: Urine 900 950 Other: Voiding Method Toilet Urinal # Voids 1 - Exam CONSTITUTIONAL: No apparent distress. Head exam was generally normal. There was no scleral icterus or corneal arcus. Mucous membranes were moist. HEENT: Head is normocephalic. Pupils are equal, round. Sclerae anicteric. Mucous membranes of the mouth are moist. No JVD. No carotid bruit. CHEST EXAMINATION: Expiratory wheezes, no rhonchi or rales. No chest wall tenderness is noted on palpation or with deep breathing. HEART EXAMINATION: Regular rate and rhythm. S1, S2 heard. No murmurs, gallops or rub. ABDOMEN: Soft, nontender. Positive bowel sounds. EXTREMITIES: 2+ peripheral pulses, bilateral lower extremity 2+ pitting edema and no calf tenderness. NEUROLOGIC EXAMINATION: Patient is awake, alert and oriented x3. Examination of the skin revealed no evidence of significant rashes, suspicious a ppearing nevi or other concerning lesions. Neurologically, the patient is awake and alert and the patient does not have any focal neurological deficit. Cranial nerves are essentially intact. - Labs CBC & Chem 7: 11/12/20 15:29 11/16/20 07:49 Labs: Abnormal Lab Results - Last 24 Hours (Table) 11/15/20 11/15/20 11/15/20 Range/Units 11:46 14:05 16:19 Potassium (3.5-5.1) mmol/L Chloride (98-107) mmol/L Carbon Dioxide (22-30) mmol/L BUN (9-20) mg/dL Creatinine (0.66-1.25) mg/dL Glucose (74-99) mg/dL POC Glucose (mg/dL) 267 H 293 H 230 H (75-99) mg/dL 11/15/20 11/15/20 11/15/20 Range/Units 17:59 20:05 22:01 Potassium (3.5-5.1) mmol/L Chloride (98-107) mmol/L Carbon Dioxide (22-30) mmol/L BUN (9-20) mg/dL Creatinine (0.66-1.25) mg/dL Glucose (74-99) mg/dL POC Glucose (mg/dL) 214 H 277 H 220 H (75-99) mg/dL 11/16/20 11/16/20 11/16/20 Range/Units 00:00 01:58 04:34 Potassium (3.5-5.1) mmol/L Chloride (98-107) mmol/L Carbon Dioxide (22-30) mmol/L BUN (9-20) mg/dL Creatinine (0.66-1.25) mg/dL Glucose (74-99) mg/dL POC Glucose (mg/dL) 165 H 173 H 233 H (75-99) mg/dL 11/16/20 11/16/20 11/16/20 Range/Units 05:57 07:49 07:51 Potassium 5.3 H (3.5-5.1) mmol/L Chloride 97 L (98-107) mmol/L Carbon Dioxide 32 H (22-30) mmol/L BUN 50 H (9-20) mg/dL Creatinine 1.75 H (0.66-1.25) mg/dL Glucose 176 H (74-99) mg/dL POC Glucose (mg/dL) 189 H 157 H (75-99) mg/dL Assessment and Plan Plan: 1 shortness of breath, multifactorial, predominantly secondary to fluid overload and possibly a component of cardiac asthma. The sclerae of the chest and there was some vague groundglass changes consistent with fluid. Doubt viral pneumonia. Doubt interstitial lung disease. The patient is responding to diuretics. The patient is in fluid overloaded. 2 obesity with a BMI of 43. 3 possible obstructive sleep apnea 4 coronary artery disease with previous coronary stenting 5 hypertension 6 hyperlipidemia 7 hypothyroidism 8 previous history of hemithyroidectomy 9 Diabetes mellitus 10 chronic stage III kidney disease Plan Lasix 40 mg IV push to 12 hours and this will be started today. Earlier the patient was on oral Lasix. Continue prednisone burst taper and put the patient on insulin drip for blood sugar control Continue albuterol nebulized treatments around the clock The patient is bronchospastic and wheezy and short of breath and this is gradually improving Monitor renal function The workup has been noted and appreciated Monitor the electrolytes and urine output
[2020-11-16] MEDS: INSULIN DETEMIR (LEVEMIR) 100 UNIT/ML SYR SQ SCH (10:49)
[2020-11-16] MEDS: FUROSEMIDE 10 MG/ML 4 ML VIAL IV SCH ×2 (10:50→20:32)
[2020-11-16 10:56] LABS: Glucose,Whole Blood 186 mg/dL (75-99)
--- NOTE | 2020-11-16 11:04 | P.PN ---
Subjective Patient is seen in follow-up for acute kidney injury on chronic kidney disease. Patient follows with a missile and missile checkout technician out of the [facility]. He is unsure as to what his baseline renal function is. Renal function is stable. Good urine output. Edema improved since admission. He was maintained on oral Lasix but was changed to IV Lasix 40 mg twice daily by pulmonology this morning. No chest pain or shortness of breath. Patient does state that the edema in his lower extremities is chronic to an extent. Blood sugars better controlled. Vital signs are stable. General: The patient appeared well nourished and normally developed. HEENT: Head exam is unremarkable. Neck is without jugular venous distension. LUNGS: Breath sounds decreased. HEART: Rate and Rhythm are regular. ABDOMEN: Soft, nontender. EXTREMITITES: 1+ edema. Objective - Vital Signs Vital signs: Vital Signs Temp 97.8 F 11/16/20 08:00 Pulse 84 11/16/20 09:43 Resp 18 11/16/20 08:00 BP 135/67 11/16/20 08:00 Pulse Ox 98 11/16/20 08:00 Intake & Output 11/15/20 11/16/20 11/16/20 18:59 06:59 18:59 Intake Total 841.000 758.822 113.054 Output Total 900 950 Balance -59.000 -191.178 113.054 Weight 128.5 kg Intake: Intake, IV Titration 101.000 78.822 13.054 Amount Insulin Regular 100 unit 101.000 78.822 13.054 In Sodium Chloride 0.9% 100 ml @ Titrate IV .Q0M [facility] Rx#:[id number] Oral 740 680 100 Output: Urine 900 950 Other: Voiding Method Toilet Urinal # Voids 1 - Labs CBC & Chem 7: 11/12/20 15:29 11/16/20 07:49 Labs: Abnormal Lab Results - Last 24 Hours (Table) 11/15/20 11/15/20 11/15/20 Range/Units 11:46 14:05 16:19 Potassium (3.5-5.1) mmol/L Chloride (98-107) mmol/L Carbon Dioxide (22-30) mmol/L BUN (9-20) mg/dL Creatinine (0.66-1.25) mg/dL Glucose (74-99) mg/dL POC Glucose (mg/dL) 267 H 293 H 230 H (75-99) mg/dL 11/15/20 11/15/20 11/15/20 Range/Units 17:59 20:05 22:01 Potassium (3.5-5.1) mmol/L Chloride (98-107) mmol/L Carbon Dioxide (22-30) mmol/L BUN (9-20) mg/dL Creatinine (0.66-1.25) mg/dL Glucose (74-99) mg/dL POC Glucose (mg/dL) 214 H 277 H 220 H (75-99) mg/dL 11/16/20 11/16/20 11/16/20 Range/Units 00:00 01:58 04:34 Potassium (3.5-5.1) mmol/L Chloride (98-107) mmol/L Carbon Dioxide (22-30) mmol/L BUN (9-20) mg/dL Creatinine (0.66-1.25) mg/dL Glucose (74-99) mg/dL POC Glucose (mg/dL) 165 H 173 H 233 H (75-99) mg/dL 11/16/20 11/16/20 11/16/20 Range/Units 05:57 07:49 07:51 Potassium 5.3 H (3.5-5.1) mmol/L Chloride 97 L (98-107) mmol/L Carbon Dioxide 32 H (22-30) mmol/L BUN 50 H (9-20) mg/dL Creatinine 1.75 H (0.66-1.25) mg/dL Glucose 176 H (74-99) mg/dL POC Glucose (mg/dL) 189 H 157 H (75-99) mg/dL 11/16/20 Range/Units 10:48 Potassium (3.5-5.1) mmol/L Chloride (98-107) mmol/L Carbon Dioxide (22-30) mmol/L BUN (9-20) mg/dL Creatinine (0.66-1.25) mg/dL Glucose (74-99) mg/dL POC Glucose (mg/dL) 186 H (75-99) mg/dL Assessment and Plan Plan: Assessment: 1. Acute kidney injury mostly prerenal secondary to cardiorenal syndrome. Creatinine 1.42 on admission and peaked at 1.96 - 1.75 today. He also received IV contrast on 11/12/2020. UA benign. No hydronephrosis noted on kidney ultrasound. Left kidney is small in size. 2. Chronic kidney disease. Patient follows with missile and missile checkout technician out of [facility]. Unknown baseline renal function. 3. Volume overload. Improved with diuresis. 4. Diabetes mellitus. 5. Acute diastolic CHF with ejection fraction of 50-55% with mild mitral and tricuspid regurgitation and pulmonary hypertension. 6. Mild hyperkalemia secondary to hyperglycemia. Stable. Plan: Lasix increased to 40 mg IV twice daily by pulmonology today. Low-salt diet and 1500 mL fluid restriction. Continue to monitor renal function and urine output - will need to wean diuretics if renal function worsens. Hold losartan. Tight blood sugar control. Patient has been advised to monitor his weight closely at home and to call if gains more than 3-4 pounds in one week duration.
[2020-11-16 11:46] LABS: Glucose,Whole Blood 213 mg/dL (75-99)
[2020-11-16 14:02] LABS: Glucose,Whole Blood 318 mg/dL (75-99)
[2020-11-16 16:54] LABS: Glucose,Whole Blood 349 mg/dL (75-99)
--- NOTE | 2020-11-16 17:54 | P.PN ---
Subjective Progress Note Date: 11/16/20 Principal diagnosis: Exertional dyspnea/CHF Acute exacerbation COPD Hyperglycemia 70-year-old male presents with a complaint of shortness of breath. He states that it is much worse with any exertion. It initially started approximately 2 months ago but is much more severe over the past 2 weeks. He states that he has to sleep in a recliner as he cannot breathe if he lays flat. He complains of chronic lower extremity edema which may be somewhat worse. He states that he has had significant weight gain in the last month or so with abdominal distenti on. He also complains of some lower sternal chest pressure. He does have a history of coronary artery disease with 2 cardiac stents. He had 1 cardiac stent placed at our hospital in 2003. He had another cardiac stent placed in [place] in 2004. His last stress test was approximately one year ago and was purportedly normal. He denies any fevers or chills. He was recently started on an albuterol inhaler with minimal relief. 11/15/2020 Patient is seen and evaluated sitting up in bedside chair; family at bedside Patient has been evaluated by pulmonary service and recommended to continue with Lasix 40 mg IV push to 12 hours Continue albuterol nebulized treatments around the clock The patient continues to have severe bronchospasm; systemic steroids has caused significant hyperglycemia. The patient will be placed on 30 mg of prednisone as a part of the burst taper and will monitor his blood sugars 11/16/2020 Patient is seen in follow-up; the patient is being diuresed with IV Lasix and he was responding nicely and his fluid balance was negative in the order of 1.4 L. He was switched to oral Lasix by cardiology today; off the IV Solu-Medrol and the patient was getting also hyperglycemia and the patient is currently on a prednisone burst taper starting with 30 mg on a daily basis.. Echocardiogram was noted. CT angios was noted. He is on IV fluids and he is also on insulin drip at 4 units an hour. IV fluids need to be dropped to KVO. Less bronchospastic and wheezy compared to yesterday. Nephro on board for acute kidney injury on chronic kidney disease. Patient follows with a printed circuit board reworker out of the [place] [facility]. He is unsure as to what his baseline renal function is. Renal function is stable. Good urine output. Edema improved since admission. He was maintained on oral Lasix but was changed to IV Lasix 40 mg twice daily by pulmonology this morning. No chest pain or shortness of breath. Patient does state that the edema in his lower extremities is chronic to an extent. Blood sugars better controlled. Objective - Vital Signs Vital signs: Vital Signs Temp 97.8 F 11/16/20 08:00 Pulse 80 11/16/20 12:17 Resp 18 11/16/20 11:55 BP 131/69 11/16/20 11:55 Pulse Ox 93 L 11/16/20 11:55 Intake & Output 11/15/20 11/16/20 11/16/20 18:59 06:59 18:59 Intake Total 841.000 758.822 113.054 Output Total 900 950 950 Balance -59.000 -191.178 -836.946 Weight 128.5 kg Intake: Intake, IV Titration 101.000 78.822 13.054 Amount Insulin Regular 100 unit 101.000 78.822 13.054 In Sodium Chloride 0.9% 100 ml @ Titrate IV .Q0M [facility] Rx#:[id number] Oral 740 680 100 Output: Urine 900 950 950 Other: Voiding Method Toilet Toilet Urinal Urinal # Voids 1 - Exam - Constitutional General appearance: Present: average body habitus, cooperative, no acute distress - EENT Eyes: Present: anicteric sclerae, EOMI, PERRLA, normal appearance ENT: Present: hearing grossly normal, normal oropharynx Ears: bilateral: normal - Neck Neck: Present: normal ROM. Absent: lymphadenopathy, rigidity, thyromegaly Carotids: negative: bruit present Thyroid: bilateral: normal size, negative: enlarged, nodule - Respiratory Respiratory: bilateral: CTA, negative: rales, rhonchi, wheezing - Cardiovascular Rhythm: regular Heart sounds: normal: S1, S2 Abnormal Heart Sounds: Absent: systolic murmur, diastolic murmur - Gastrointestinal General gastrointestinal: Present: normal bowel sounds, soft. Absent: distended, organomegaly, tenderness - Genitourinary Genitourinary Comment(s): deferred - Integumentary Integumentary: Present: normal turgor. Absent: jaundiced, rash, ulcer - Neurologic Neurologic: Present: CNII-XII intact. Absent: focal deficits - Musculoskeletal Musculoskeletal: Present: gait normal, strength equal bilaterally - Psychiatric Psychiatric: Present: A&O x's 3, appropriate affect, intact judgment & insight - Labs CBC & Chem 7: 11/12/20 15:29 11/16/20 07:49 Labs: Abnormal Lab Results - Last 24 Hours (Table) 11/15/20 11/15/20 11/15/20 Range/Units 14:05 16:19 17:59 Potassium (3.5-5.1) mmol/L Chloride (98-107) mmol/L Carbon Dioxide (22-30) mmol/L BUN (9-20) mg/dL Creatinine (0.66-1.25) mg/dL Glucose (74-99) mg/dL POC Glucose (mg/dL) 293 H 230 H 214 H (75-99) mg/dL 11/15/20 11/15/20 11/16/20 Range/Units 20:05 22:01 00:00 Potassium (3.5-5.1) mmol/L Chloride (98-107) mmol/L Carbon Dioxide (22-30) mmol/L BUN (9-20) mg/dL Creatinine (0.66-1.25) mg/dL Glucose (74-99) mg/dL POC Glucose (mg/dL) 277 H 220 H 165 H (75-99) mg/dL 11/16/20 11/16/20 11/16/20 Range/Units 01:58 04:34 05:57 Potassium (3.5-5.1) mmol/L Chloride (98-107) mmol/L Carbon Dioxide (22-30) mmol/L BUN (9-20) mg/dL Creatinine (0.66-1.25) mg/dL Glucose (74-99) mg/dL POC Glucose (mg/dL) 173 H 233 H 189 H (75-99) mg/dL 11/16/20 11/16/20 11/16/20 Range/Units 07:49 07:51 10:48 Potassium 5.3 H (3.5-5.1) mmol/L Chloride 97 L (98-107) mmol/L Carbon Dioxide 32 H (22-30) mmol/L BUN 50 H (9-20) mg/dL Creatinine 1.75 H (0.66-1.25) mg/dL Glucose 176 H (74-99) mg/dL POC Glucose (mg/dL) 157 H 186 H (75-99) mg/dL 11/16/20 Range/Units 11:45 Potassium (3.5-5.1) mmol/L Chloride (98-107) mmol/L Carbon Dioxide (22-30) mmol/L BUN (9-20) mg/dL Creatinine (0.66-1.25) mg/dL Glucose (74-99) mg/dL POC Glucose (mg/dL) 213 H (75-99) mg/dL Assessment and Plan Assessment: 1. Exertional dyspnea/CHF - Patient remains on Lasix 40 mg IV every 8 hours; we'll continue to monitor strict BRUNO's, daily weights; continue with low-salt and fluid restricted diet - Cardiology is consulted and await further recommendations 2. Suspect lower extremity DVT - Bilateral lower extremity venous Doppler is ordered; continue with DVT prophylaxis at this time 3. Worsening renal injury; patient remains on IV Lasix and creatinine is slowly trending up; we will consult nephrology for further recommendations; hold off on IV fluids at this time; monitor strict BRUNO's, daily weights, renal function and electrolytes; avoid nephrotoxic agents; hold losartan until further evaluation by nephro 4. Coronary artery disease status post PCI in 2003; stable at baseline on aspirin, atorvastatin, Imdur, Lopressor 5. Hypertension; continue with home dose of Lopressor and Imdur; losartan on hold due to renal injury 6. Dyslipidemia; Lipitor 80 mg by mouth 7. Diabetes mellitus; controlled with insulin; continue with Lantus 30 units subcu daily at bedtime along with Humalog sliding scale before every meal C 8. Hypothyroidism; levothyroxin 112 MCG daily DVT prophylaxis; SCDs/subcu Lovenox CODE STATUS; full code
[2020-11-16] MEDS: ATORVASTATIN 80 MG TAB PO SCH (20:31)
[2020-11-16 21:04] LABS: Glucose,Whole Blood 388 mg/dL (75-99)
[2020-11-16] MEDS ORDERED: INSULIN ASPART (NovoLOG) 100 UNIT/ML VIAL SQ ONE (21:14)
[2020-11-17] MEDS: LEVOTHYROXINE 112 MCG TAB PO SCH (05:32)
[2020-11-17 06:41] LABS: Glucose,Whole Blood 357 mg/dL (75-99)
[2020-11-17] MEDS: IPRATROPIUM-ALBUTEROL 3 ML NEB INHALATION SCH ×4 (07:20→20:24)
[2020-11-17] MEDS: ALBUTEROL HFA INHALER INHALATION SCH (07:20)
[2020-11-17] MEDS: ENOXAPARIN 40 MG/0.4 ML SYRINGE SQ SCH (07:28)
[2020-11-17] MEDS: FLUTICASONE 50MCG/SPRAY NASAL 16GM EA NOSTRIL SCH ×2 (07:29→20:53)
[2020-11-17] MEDS: FUROSEMIDE 10 MG/ML 4 ML VIAL IV SCH ×2 (07:29→20:53)
[2020-11-17] MEDS: INSULIN ASPART (NovoLOG) 100 UNIT/ML VIAL SQ SCH (07:29)
[2020-11-17] MEDS: INSULIN DETEMIR (LEVEMIR) 100 UNIT/ML SYR SQ SCH (07:29)
[2020-11-17] MEDS: LORATADINE 10 MG TAB PO SCH (07:30)
[2020-11-17] MEDS: MULTIVITAMINS, THERA 1 EACH TAB PO SCH (07:30)
[2020-11-17] MEDS: FAMOTIDINE 20 MG TAB PO SCH (07:30)
[2020-11-17] MEDS: METOPROLOL TARTRATE 50 MG TAB PO SCH ×2 (07:30→20:53)
[2020-11-17] MEDS: FINASTERIDE 5 MG TAB PO SCH (07:30)
[2020-11-17] MEDS: ASPIRIN 81 MG PO SCH (07:30)
[2020-11-17] MEDS ORDERED: INSULIN ASPART (NovoLOG) 100 UNIT/ML VIAL SQ SCH ×5 (07:30→12:30)
[2020-11-17] MEDS: predniSONE 10 MG TAB PO SCH (07:30)
[2020-11-17] MEDS: hydrALAZINE HCL 25 MG TAB PO SCH ×3 (07:30→20:53)
[2020-11-17 07:42] LABS: Basophils % (A) 0 %; Eosinophils # (A) 0.1 k/uL (0-0.7); Eosinophils % (A) 1 %; HCT 45.2 % (39.0-53.0); HGB 14.4 gm/dL (13.0-17.5); Lymphocytes # (A) 2.4 k/uL (1.0-4.8); Lymphocytes % (A) 22 %; MCH 27.8 pg (25.0-35.0); Mean Platelet Volume 7.5; Monocytes # (A) 0.8 k/uL (0-1.0); Monocytes % (A) 7 %; Neutrophils # (A) 7.4 k/uL (1.3-7.7); Neutrophils % (A) 68 %; Platelet Count 213 k/uL (150-450); RDW 14.5 % (11.5-15.5); WBC 10.8 k/uL (3.8-10.6)
--- NOTE | 2020-11-17 07:51 | XR ---
EXAMINATION TYPE: XR chest 1V portable DATE OF EXAM: 11/17/2020 COMPARISON: Chest x-ray and chest CT 11/12/2020 HISTORY: Congestive heart failure TECHNIQUE: Single frontal view of the chest is obtained. FINDINGS: There is no focal air space opacity, pleural effusion, or pneumothorax seen. The cardiac silhouette size is stable, patient is rotated. The osseous structures are intact. IMPRESSION: No acute process. Improved aeration.
[2020-11-17 07:55] LABS: Magnesium 2.3 mg/dL (1.6-2.3); Potassium 5.3 mmol/L (3.5-5.1)
--- NOTE | 2020-11-17 11:07 | P.PN ---
Subjective Progress Note Date: 11/17/20 An 78-year-old male patient with known history of CAD with previous PCI back in 2003 in addition to morbid obesity, diabetes mellitus and hypertension and hyperlipidemia. The patient was initially hospitalized for worsening shortness of breath. The patient follows up at the CT office and he was experiencing exertional dyspnea and for that reason he end up coming into the hospital. Denied having any angina. No palpitation. No significant cough or sputum production. No hemoptysis or pleurisy. The symptoms started approximately 2 weeks ago. The patient stated that he was leaving a recliner due to inability to breathe. He also complained of lower extremity edema which was getting worse and he had also increased in body weight and he also described some chest pressure/pain, nonspecified an estimated is known to have coronary artery disease with previous coronary stenting 2 last one being in 2003 performed in our hospital. Subsequently another stent was placed and after 2004. His latest cardiac stress test with approximately year ago and was reportedly normal. The patient's blood work at a time of admission showed a white cell 9.0 with hemoglobin of 13.6 and the platelets of 203 blood work showed a chronic kidney disease with a creatinine of 1.4-1.96 and this morning is down to 1.7. The patient has a component of metabolic alkalosis with a serum bicarb as high as 33. The patient also has normal LFTs, normal troponin, BNP level was 227, and UA was negative.: COVID 19 testing was also negative. The chest x-ray showed cardiomegaly and there was mild chronic parenchymal changes bilaterally without any suspicious of any focal infiltrates or effusions or pneumothorax. The patient did have some cardiomegaly. Based on that, a CT angiogram was performed and the CTA showed some patchy groundglass interstitial infiltrates in the lungs bilaterally mainly in the midlung area and there was borderline cardiomegaly without any pericardial effusion or pleural effusion or hilar or mediastinal masses. No evidence of any pulmonary embolism. Currently the patient has a pul se ox of 93% on room air oxygen. No echocardiogram was done and showed an ejection fraction of 50-55%, RV was normal, on a was normal, mild pulmonary hypertension with a PA pressure of 37, no significant valvular abnormalities noted, no pericardial effusion 11/16/2020 the patient is being diuresed with IV Lasix and he was responding nicely and his fluid balance was negative in the order of 1.4 L. He was switched to oral Lasix by cardiology today. I took him off the IV Solu-Medrol and the patient was getting also hyperglycemia and the patient is currently on a prednisone burst taper starting with 30 mg on a daily basis.. Echocardiogram was noted. CT angios was noted. He is on IV fluids and he is also on insulin drip at 4 units an hour. IV fluids need to be dropped to KVO. Less bron chospastic and wheezy compared to yesterday. No chest pain. on 11/17/2020 the patient is feeling much better. He is in a negative fluid balance of at least 2.3 L over the past 24 hours and the patient is feeling better and less short of breath and his overall low status and his breathing status improved compared to yesterday. His current BUN is 53 with a creatinine of 1.8 and a serum bicarb is at 36. He is on Lasix at a dose of 40 mg IV push to 12 hours and is also on bronchodilators around the clock and a prednisone burst taper. His blood sugars are elevated because of steroids. His blood sugar management is through Levemir insulin 30 units along with 20 units with meals and a sliding scale coverage. He is also on Lovenox for DVT prophylaxis. Objective - Vital Signs Vital signs: Vital Signs Temp 97.7 F 11/17/20 08:22 Pulse 71 11/17/20 08:22 Resp 19 11/17/20 08:22 BP 157/87 11/17/20 08:22 Pulse Ox 95 11/17/20 08:22 Intake & Output 11/16/20 11/17/20 11/17/20 18:59 06:59 18:59 Intake Total 703.054 Output Total 2600 1000 2040 Balance -1896.946 -1000 -2040 Weight 127.2 kg Intake: Intake, IV Titration 13.054 Amount Insulin Regular 100 unit 13.054 In Sodium Chloride 0.9% 100 ml @ Titrate IV .Q0M [facility] Rx#:[id number] Oral 690 Output: Urine 2600 1000 2040 Other: Voiding Method Toilet Toilet Urinal Urinal # Voids 2 - Exam CONSTITUTIONAL: No apparent distress. Head exam was generally normal. There was no scleral icterus or corneal arcus. Mucous membranes were moist. HEENT: Head is normocephalic. Pupils are equal, round. Sclerae anicteric. Mucous membranes of the mouth are moist. No JVD. No carotid bruit. CHEST EXAMINATION: Expiratory wheezes . Today's evaluation and the patient is not being interrupted by coughing., no rhonchi or rales. No chest wall tenderness is noted on palpation or with deep breathing. HEART EXAMINATION: Regular rate and rhythm. S1, S2 heard. No murmurs, gallops or rub. ABDOMEN: Soft, nontender. Positive bowel sounds. EXTREMITIES: 2+ peripheral pulses, bilateral lower extremity 2+ pitting edema and no calf tenderness. NEUROLOGIC EXAMINATION: Patient is awake, alert and oriented x3. Examination of the skin revealed no evidence of significant rashes, suspicious appearing nevi or other concerning lesions. Neurologically, the patient is awake and alert and the patient does not have any focal neurological deficit. Cranial nerves are essentially intact. - Labs CBC & Chem 7: 11/17/20 07:15 11/17/20 07:15 Labs: Abnormal Lab Results - Last 24 Hours (Table) 11/16/20 11/16/20 11/16/20 Range/Units 11:45 14:01 16:52 WBC (3.8-10.6) k/uL Sodium (137-145) mmol/L Potassium (3.5-5.1) mmol/L Chloride (98-107) mmol/L Carbon Dioxide (22-30) mmol/L BUN (9-20) mg/dL Creatinine (0.66-1.25) mg/dL Glucose (74-99) mg/dL POC Glucose (mg/dL) 213 H 318 H 349 H (75-99) mg/dL 11/16/20 11/17/20 11/17/20 Range/Units 20:57 06:39 07:15 WBC 10.8 H (3.8-10.6) k/uL Sodium (137-145) mmol/L Potassium (3.5-5.1) mmol/L Chloride (98-107) mmol/L Carbon Dioxide (22-30) mmol/L BUN (9-20) mg/dL Creatinine (0.66-1.25) mg/dL Glucose (74-99) mg/dL POC Glucose (mg/dL) 388 H 357 H (75-99) mg/dL 11/17/20 Range/Units 07:15 WBC (3.8-10.6) k/uL Sodium 135 L (137-145) mmol/L Potassium 5.3 H (3.5-5.1) mmol/L Chloride 94 L (98-107) mmol/L Carbon Dioxide 36 H (22-30) mmol/L BUN 53 H (9-20) mg/dL Creatinine 1.86 H (0.66-1.25) mg/dL Glucose 383 H (74-99) mg/dL POC Glucose (mg/dL) (75-99) mg/dL Assessment and Plan Plan: 1 shortness of breath, multifactorial, predominantly secondary to fluid overload and possibly a component of cardiac asthma. the patient is clinically improving and is responding nicely to diuretics. Less short of breath. Less bronchospastic. Less wheezing on today's evaluation. Blood sugars are slightly more elevated as the patient is on prednisone burst taper. 2 obesity with a BMI of 43. 3 possible obstructive sleep apnea 4 coronary artery disease with previous coronary stenting 5 hypertension 6 hyperlipidemia 7 hypothyroidism 8 previous history of hemithyroidectomy 9 Diabetes mellitus 10 chronic stage III kidney disease Plan I will suggest continuing theLasix 40 mg IV push to 12 hours and patient is responding and the patient is a negative fluid balance and renal function is sta ble for now Continue prednisone burst taper and patient is on Levemir insulinat a dose of 30 units daily in addition to 20 units with meals and sliding scale coverage. I'm going tokeep the prednisone at 30 mg and start the patient insulin drip for now. Continue albuterol nebulized treatments around the clock The patient is bronchospastic and wheezy and short of breath and this is gradually improving, the patient is evidently feeling much better on today's evaluation Monitor renal function, creatinine is at 1.86 which is stable The cardiac workup has been noted and appreciated Monitor the electrolytes and urine output monitor urine output We'll continue to follow
[2020-11-17 11:10] LABS: Glucose,Whole Blood 417 mg/dL (75-99)
[2020-11-17 12:27] LABS: Glucose,Whole Blood 342 mg/dL (75-99)
--- NOTE | 2020-11-17 12:31 | P.PN ---
Subjective Progress Note Date: 11/17/20 f/u for NASRA, U.O of 3.6 L Objective - Vital Signs Vital signs: Vital Signs Temp 97.7 F 11/17/20 08:22 Pulse 78 11/17/20 11:06 Resp 19 11/17/20 08:22 BP 157/87 11/17/20 08:22 Pulse Ox 95 11/17/20 08:22 Intake & Output 11/16/20 11/17/20 11/17/20 18:59 06:59 18:59 Intake Total 703.054 Output Total 2600 1000 0 Balance -1896.946 -1000 Weight 127.2 kg Intake: Intake, IV Titration 13.054 Amount Insulin Regular 100 unit 13.054 In Sodium Chloride 0.9% 100 ml @ Titrate IV .Q0M [facility] Rx#:[id number] Oral 690 Output: Urine 2600 1000 2039 Other: Voiding Method Toilet Toilet Urinal Urinal # Voids 2 - Exam no acute distress s1 s2 herd decreased breath sounds edema - Labs CBC & Chem 7: 11/17/20 07:15 11/17/20 07:15 Labs: Abnormal Lab Results - Last 24 Hours (Table) 11/16/20 11/16/20 11/16/20 Range/Units 14:01 16:52 20:57 WBC (3.8-10.6) k/uL Sodium (137-145) mmol/L Potassium (3.5-5.1) mmol/L Chloride (98-107) mmol/L Carbon Dioxide (22-30) mmol/L BUN (9-20) mg/dL Creatinine (0.66-1.25) mg/dL Glucose (74-99) mg/dL POC Glucose (mg/dL) 318 H 349 H 388 H (75-99) mg/dL 11/17/20 11/17/20 11/17/20 Range/Units 06:39 07:15 07:15 WBC 10.8 H (3.8-10.6) k/uL Sodium 135 L (137-145) mmol/L Potassium 5.3 H (3.5-5.1) mmol/L Chloride 94 L (98-107) mmol/L Carbon Dioxide 36 H (22-30) mmol/L BUN 53 H (9-20) mg/dL Creatinine 1.86 H (0.66-1.25) mg/dL Glucose 383 H (74-99) mg/dL POC Glucose (mg/dL) 357 H (75-99) mg/dL 11/17/20 11/17/20 Range/Units 10:59 12:25 WBC (3.8-10.6) k/uL Sodium (137-145) mmol/L Potassium (3.5-5.1) mmol/L Chloride (98-107) mmol/L Carbon Dioxide (22-30) mmol/L BUN (9-20) mg/dL Creatinine (0.66-1.25) mg/dL Glucose (74-99) mg/dL POC Glucose (mg/dL) 417 H 342 H (75-99) mg/dL Assessment and Plan Assessment: 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 Diastolic CHF 3. Edema 4. CKD 3 Plan: 1. c/w lasix, change to po torsemide 30 mg at d/c 2. avoid nephrotoxics
[2020-11-17] MEDS: INSULIN REGULAR 100 UNIT in SODIUM CHLORIDE 0.9% 100 ML IV SCH ×2 (12:34→22:36)
[2020-11-17 13:22] LABS: Glucose,Whole Blood 314 mg/dL (75-99)
[2020-11-17 14:04] LABS: Glucose,Whole Blood 288 mg/dL (75-99)
[2020-11-17 14:39] LABS: Glucose,Whole Blood 260 mg/dL (75-99)
[2020-11-17 15:15] LABS: Glucose,Whole Blood 219 mg/dL (75-99)
[2020-11-17 16:22] LABS: Glucose,Whole Blood 181 mg/dL (75-99)
[2020-11-17 17:38] LABS: Glucose,Whole Blood 136 mg/dL (75-99)
--- NOTE | 2020-11-17 17:38 | P.PN ---
Subjective Progress Note Date: 11/17/20 Principal diagnosis: Exertional dyspnea/CHF Acute exacerbation COPD Hyperglycemia 70-year-old male presents with a complaint of shortness of breath. He states that it is much worse with any exertion. It initially started approximately 2 months ago but is much more severe over the past 2 weeks. He states that he has to sleep in a recliner as he cannot breathe if he lays flat. He complains of chronic lower extremity edema which may be somewhat worse. He states that he has had significant weight gain in the last month or so with abdominal distenti on. He also complains of some lower sternal chest pressure. He does have a history of coronary artery disease with 2 cardiac stents. He had 1 cardiac stent placed at our hospital in 2003. He had another cardiac stent placed in [place] in 2004. His last stress test was approximately one year ago and was purportedly normal. He denies any fevers or chills. He was recently started on an albuterol inhaler with minimal relief. 11/15/2020 Patient is seen and evaluated sitting up in bedside chair; family at bedside Patient has been evaluated by pulmonary service and recommended to continue with Lasix 40 mg IV push to 12 hours Continue albuterol nebulized treatments around the clock The patient continues to have severe bronchospasm; systemic steroids has caused significant hyperglycemia. The patient will be placed on 30 mg of prednisone as a part of the burst taper and will monitor his blood sugars 11/16/2020 Patient is seen in follow-up; the patient is being diuresed with IV Lasix and he was responding nicely and his fluid balance was negative in the order of 1.4 L. He was switched to oral Lasix by cardiology today; off the IV Solu-Medrol and the patient was getting also hyperglycemia and the patient is currently on a prednisone burst taper starting with 30 mg on a daily basis.. Echocardiogram was noted. CT angios was noted. He is on IV fluids and he is also on insulin drip at 4 units an hour. IV fluids need to be dropped to KVO. Less bronchospastic and wheezy compared to yesterday. Nephro on board for acute kidney injury on chronic kidney disease. Patient follows with a wealth management manager out of the [facility]. He is unsure as to what his baseline renal function is. Renal function is stable. Good urine output. Edema improved since admission. He was maintained on oral Lasix but was changed to IV Lasix 40 mg twice daily by pulmonology this morning. No chest pain or shortness of breath. Patient does state that the edema in his lower extremities is chronic to an extent. Blood sugars better controlled. 11/17/2020 Patient is seen and evaluated sitting up in bedside chair; reports feeling much better. He is in a negative fluid balance of at least 2.3 L over the past 24 h ours and the patient is feeling better and less short of breath and his overall low status and his breathing status improved compared to yesterday. His current BUN is 53 with a creatinine of 1.8 and a serum bicarb is at 36. He is on Lasix at a dose of 40 mg IV push to 12 hours and is also on bronchodilators around the clock and a prednisone burst taper. His blood sugars are elevated because of steroids. His blood sugar management is through Levemir insulin 30 units along with 20 units with meals and a sliding scale coverage. He is also on Lovenox for DVT prophylaxis. Objective - Vital Signs Vital signs: Vital Signs Temp 97.7 F 11/17/20 08:22 Pulse 78 11/17/20 11:06 Resp 19 11/17/20 08:22 BP 157/87 11/17/20 08:22 Pulse Ox 95 11/17/20 08:22 Intake & Output 11/16/20 11/17/20 11/17/20 18:59 06:59 18:59 Intake Total 703.054 Output Total 2600 1000 2040 Balance -1896.946 -1000 -2039 Weight 127.2 kg Intake: Intake, IV Titration 13.054 Amount Insulin Regular 100 unit 13.054 In Sodium Chloride 0.9% 100 ml @ Titrate IV .Q0M [facility] Rx#:[id number] Oral 690 Output: Urine 2600 1000 2040 Other: Voiding Method Toilet Toilet Urinal Urinal # Voids 2 - Exam - Constitutional General appearance: Present: average body habitus, cooperative, no acute distress - EENT Eyes: Present: anicteric sclerae, EOMI, PERRLA, normal appearance ENT: Present: hearing grossly normal, normal oropharynx Ears: bilateral: normal - Neck Neck: Present: normal ROM. Absent: lymphadenopathy, rigidity, thyromegaly Carotids: negative: bruit present Thyroid: bilateral: normal size, negative: enlarged, nodule - Respiratory Respiratory: bilateral: CTA, negative: rales, rhonchi, wheezing - Cardiovascular Rhythm: regular Heart sounds: normal: S1, S2 Abnormal Heart Sounds: Absent: systolic murmur, diastolic murmur - Gastrointestinal General gastrointestinal: Present: normal bowel sounds, soft. Absent: distended, organomegaly, tenderness - Genitourinary Genitourinary Comment(s): deferred - Integumentary Integumentary: Present: normal turgor. Absent: jaundiced, rash, ulcer - Neurologic Neurologic: Present: CNII-XII intact. Absent: focal deficits - Musculoskeletal Musculoskeletal: Present: gait normal, strength equal bilaterally - Psychiatric Psychiatric: Present: A&O x's 3, appropriate affect, intact judgment & insight - Labs CBC & Chem 7: 11/17/20 07:15 11/17/20 07:15 Labs: Abnormal Lab Results - Last 24 Hours (Table) 11/16/20 11/16/20 11/16/20 Range/Units 14:01 16:52 20:57 WBC (3.8-10.6) k/uL Sodium (137-145) mmol/L Potassium (3.5-5.1) mmol/L Chloride (98-107) mmol/L Carbon Dioxide (22-30) mmol/L BUN (9-20) mg/dL Creatinine (0.66-1.25) mg/dL Glucose (74-99) mg/dL POC Glucose (mg/dL) 318 H 349 H 388 H (75-99) mg/dL 11/17/20 11/17/20 11/17/20 Range/Units 06:39 07:15 07:15 WBC 10.8 H (3.8-10.6) k/uL Sodium 135 L (137-145) mmol/L Potassium 5.3 H (3.5-5.1) mmol/L Chloride 94 L (98-107) mmol/L Carbon Dioxide 36 H (22-30) mmol/L BUN 53 H (9-20) mg/dL Creatinine 1.86 H (0.66-1.25) mg/dL Glucose 383 H (74-99) mg/dL POC Glucose (mg/dL) 357 H (75-99) mg/dL 11/17/20 11/17/20 Range/Units 10:59 12:25 WBC (3.8-10.6) k/uL Sodium (137-145) mmol/L Potassium (3.5-5.1) mmol/L Chloride (98-107) mmol/L Carbon Dioxide (22-30) mmol/L BUN (9-20) mg/dL Creatinine (0.66-1.25) mg/dL Glucose (74-99) mg/dL POC Glucose (mg/dL) 417 H 342 H (75-99) mg/dL Assessment and Plan Assessment: 1. Exertional dyspnea/CHF - Patient remains on Lasix 40 mg IV every 8 hours; we'll continue to monitor strict BRUNO's, daily weights; continue with low-salt and fluid restricted diet - Cardiology is consulted and await further recommendations 2. Suspect lower extremity DVT - Bilateral lower extremity venous Doppler is ordered; continue with DVT prophylaxis at this time 3. Worsening renal injury; patient remains on IV Lasix and creatinine is slowly trending up; we will consult nephrology for further recommendations; hold off on IV fluids at this time; monitor strict BRUNO's, daily weights, renal function and electrolytes; avoid nephrotoxic agents; hold losartan until further evaluation by nephro 4. Coronary artery disease status post PCI in 2003; stable at baseline on aspirin, atorvastatin, Imdur, Lopressor 5. Hypertension; continue with home dose of Lopressor and Imdur; losartan on hold due to renal injury 6. Dyslipidemia; Lipitor 80 mg by mouth 7. Diabetes mellitus; controlled with insulin; continue with Lantus 30 units subcu daily at bedtime along with Humalog sliding scale before every meal C 8. Hypothyroidism; levothyroxin 112 MCG daily DVT prophylaxis; SCDs/subcu Lovenox CODE STATUS; full code
[2020-11-17 18:24] LABS: Glucose,Whole Blood 129 mg/dL (75-99)
[2020-11-17 19:30] LABS: Glucose,Whole Blood 205 mg/dL (75-99)
[2020-11-17 20:45] LABS: Glucose,Whole Blood 233 mg/dL (75-99)
[2020-11-17] MEDS: ATORVASTATIN 80 MG TAB PO SCH (20:53)
[2020-11-17 21:51] LABS: Glucose,Whole Blood 226 mg/dL (75-99)
[2020-11-17 22:33] LABS: Glucose,Whole Blood 181 mg/dL (75-99)
[2020-11-17 23:35] LABS: Glucose,Whole Blood 139 mg/dL (75-99)
[2020-11-18 00:43] LABS: Glucose,Whole Blood 117 mg/dL (75-99)
[2020-11-18 01:48] LABS: Glucose,Whole Blood 134 mg/dL (75-99)
[2020-11-18 02:50] LABS: Glucose,Whole Blood 151 mg/dL (75-99)
[2020-11-18 03:36] LABS: Glucose,Whole Blood 136 mg/dL (75-99)
[2020-11-18 04:36] LABS: Glucose,Whole Blood 115 mg/dL (75-99)
[2020-11-18] MEDS: LEVOTHYROXINE 112 MCG TAB PO SCH (05:35)
[2020-11-18 05:38] LABS: Glucose,Whole Blood 152 mg/dL (75-99)
[2020-11-18 06:29] LABS: Glucose,Whole Blood 172 mg/dL (75-99)
[2020-11-18 06:53] LABS: Glucose,Whole Blood 158 mg/dL (75-99)
[2020-11-18] MEDS: IPRATROPIUM-ALBUTEROL 3 ML NEB INHALATION SCH ×4 (07:08→18:50)
[2020-11-18] MEDS: ALBUTEROL HFA INHALER INHALATION SCH (07:09)
[2020-11-18] MEDS: FAMOTIDINE 20 MG TAB PO SCH (07:29)
[2020-11-18] MEDS: MULTIVITAMINS, THERA 1 EACH TAB PO SCH (07:29)
[2020-11-18] MEDS: ASPIRIN 81 MG PO SCH (07:29)
[2020-11-18] MEDS: METOPROLOL TARTRATE 50 MG TAB PO SCH ×2 (07:29→20:14)
[2020-11-18] MEDS: hydrALAZINE HCL 25 MG TAB PO SCH ×3 (07:29→20:14)
[2020-11-18] MEDS: FINASTERIDE 5 MG TAB PO SCH (07:29)
[2020-11-18] MEDS: LORATADINE 10 MG TAB PO SCH (07:30)
[2020-11-18] MEDS: predniSONE 10 MG TAB PO SCH (07:30)
[2020-11-18] MEDS: FUROSEMIDE 10 MG/ML 4 ML VIAL IV SCH ×2 (07:30→20:15)
[2020-11-18] MEDS: ENOXAPARIN 40 MG/0.4 ML SYRINGE SQ SCH (07:30)
[2020-11-18] MEDS: FLUTICASONE 50MCG/SPRAY NASAL 16GM EA NOSTRIL SCH ×2 (07:30→20:15)
[2020-11-18 07:42] LABS: Glucose,Whole Blood 161 mg/dL (75-99)
[2020-11-18 08:54] LABS: Glucose,Whole Blood 150 mg/dL (75-99)
[2020-11-18] MEDS ORDERED: predniSONE 20 MG TAB PO SCH (09:00)
[2020-11-18 10:05] LABS: Glucose,Whole Blood 139 mg/dL (75-99)
[2020-11-18 11:08] LABS: Glucose,Whole Blood 183 mg/dL (75-99)
--- NOTE | 2020-11-18 11:27 | P.PN ---
Subjective Progress Note Date: 11/18/20 An 78-year-old male patient with known history of CAD with previous PCI back in 2003 in addition to morbid obesity, diabetes mellitus and hypertension and hyperlipidemia. The patient was initially hospitalized for worsening shortness of breath. The patient follows up at the [place] office and he was experiencing exertional dyspnea and for that reason he end up coming into the hospital. Denied having any angina. No palpitation. No significant cough or sputum production. No hemoptysis or pleurisy. The symptoms started approximately 2 weeks ago. The patient stated that he was leaving a recliner due to inability to breathe. He also complained of lower extremity edema which was getting worse and he had also increased in body weight and he also described some chest pressure/pain, nonspecified an estimated is known to have coronary artery disease with previous coronary stenting 2 last one being in 2003 performed in our hospital. Subsequently another stent was placed and after 2004. His latest cardiac stress test with approximately year ago and was reportedly normal. The patient's blood work at a time of admission showed a white cell 9.0 with hemoglobin of 13.6 and the platelets of 203 blood work showed a chronic kidney disease with a creatinine of 1.4-1.96 and this morning is down to 1.7. The patient has a component of metabolic alkalosis with a serum bicarb as high as 33. The patient also has normal LFTs, normal troponin, BNP level was 227, and UA was negative.: COVID 19 testing was also negative. The chest x-ray showed cardiomegaly and there was mild chronic parenchymal changes bilaterally without any suspicious of any focal infiltrates or effusions or pneumothorax. The patient did have some cardiomegaly. Based on that, a CT angiogram was performed and the CTA showed some patchy groundglass interstitial infiltrates in the lungs bilaterally mainly in the midlung area and there was borderline cardiomegaly without any pericardial effusion or pleural effusion or hilar or mediastinal masses. No evidence of any pulmonary embolism. Currently the patient has a pul se ox of 93% on room air oxygen. No echocardiogram was done and showed an ejection fraction of 50-55%, RV was normal, on a was normal, mild pulmonary hypertension with a PA pressure of 37, no significant valvular abnormalities noted, no pericardial effusion 11/16/2020 the patient is being diuresed with IV Lasix and he was responding nicely and his fluid balance was negative in the order of 1.4 L. He was switched to oral Lasix by cardiology today. I took him off the IV Solu-Medrol and the patient was getting also hyperglycemia and the patient is currently on a prednisone burst taper starting with 30 mg on a daily basis.. Echocardiogram was noted. CT angios was noted. He is on IV fluids and he is also on insulin drip at 4 units an hour. IV fluids need to be dropped to KVO. Less bron chospastic and wheezy compared to yesterday. No chest pain. on 11/17/2020 the patient is feeling much better. He is in a negative fluid balance of at least 2.3 L over the past 24 hours and the patient is feeling better and less short of breath and his overall low status and his breathing status improved compared to yesterday. His current BUN is 53 with a creatinine of 1.8 and a serum bicarb is at 36. He is on Lasix at a dose of 40 mg IV push to 12 hours and is also on bronchodilators around the clock and a prednisone burst taper. His blood sugars are elevated because of steroids. His blood sugar management is through Levemir insulin 30 units along with 20 units with meals and a sliding scale coverage. He is also on Lovenox for DVT prophylaxis. 11/18/2020, the patient is feeling better. Continue diuresing over the past 24 hours and is another 3.9 L negative over the past 24 hours. He is feeling better. He is less short of breath. Blood sugars were elevated yesterday and I put him on insulin drip for blood sugar control which is running at 3 units an hour. He was on Levemir earlier 30 units along with 20 units with meals of NovoLog which did not cover his blood sugars well. He remains on IV Lasix 40 mg every 12 hours. BUN of 53 with a creatinine of 1.8 from yesterday and the repeat labs are still pending for now. Swelling and shortness of breath are both improving. No significant cough or sputum production. No other complaint otherwise for now. Awaiting blood work from today to monitor his electrolytes. This will be needed especially with his ongoing severe diuresis. Objective - Vital Signs Vital signs: Vital Signs Temp 98.6 F 11/18/20 07:40 Pulse 84 11/18/20 10:58 Resp 16 11/18/20 07:40 BP 151/53 11/18/20 07:40 Pulse Ox 96 11/18/20 07:40 Intake & Output 11/17/20 11/18/20 11/18/20 18:59 06:59 18:59 Intake Total 301.149 31.816 262.052 Output Total 2990 1300 Balance -2688.851 -1268.184 262.052 Weight 126.8 kg Intake: Intake, IV Titration 51.149 31.816 12.052 Amount Insulin Regular 100 unit 51.149 31.816 12.052 In Sodium Chloride 0.9% 100 ml @ Titrate IV .Q0M [facility] Rx#:[id number] Oral 250 250 Output: Urine 2990 1300 Other: Voiding Method Toilet Urinal # Voids 2 - Exam CONSTITUTIONAL: No apparent distress. Head exam was generally normal. There was no scleral icterus or corneal arcus. Mucous membranes were moist. HEENT: Head is normocephalic. Pupils are equal, round. Sclerae anicteric. Mucous membranes of the mouth are moist. No JVD. No carotid bruit. CHEST EXAMINATION: Expiratory wheezes . Today's evaluation and the patient is not being interrupted by coughing., no rhonchi or rales. No chest wall tenderness is noted on palpation or with deep breathing. HEART EXAMINATION: Regular rate and rhythm. S1, S2 heard. No murmurs, gallops or rub. ABDOMEN: Soft, nontender. Positive bowel sounds. EXTREMITIES: 2+ peripheral pulses, bilateral lower extremity 2+ pitting edema and no calf tenderness. NEUROLOGIC EXAMINATION: Patient is awake, alert and oriented x3. Examination of the skin revealed no evidence of significant rashes, suspicious appearing nevi or other concerning lesions. Neurologically, the patient is awake and alert and the patient does not have any focal neurological deficit. Cranial nerves are essentially intact. - Labs CBC & Chem 7: 11/17/20 07:15 11/17/20 07:15 Labs: Abnormal Lab Results - Last 24 Hours (Table) 11/17/20 11/17/20 11/17/20 Range/Units 12:25 13:21 14:03 POC Glucose (mg/dL) 342 H 314 H 288 H (75-99) mg/dL 11/17/20 11/17/20 11/17/20 Range/Units 14:37 15:13 16:19 POC Glucose (mg/dL) 260 H 219 H 181 H (75-99) mg/dL 11/17/20 11/17/20 11/17/20 Range/Units 17:37 18:22 19:26 POC Glucose (mg/dL) 136 H 129 H 205 H (75-99) mg/dL 11/17/20 11/17/20 11/17/20 Range/Units 20:33 21:45 22:30 POC Glucose (mg/dL) 233 H 226 H 181 H (75-99) mg/dL 11/17/20 11/18/20 11/18/20 Range/Units 23:34 00:38 01:39 POC Glucose (mg/dL) 139 H 117 H 134 H (75-99) mg/dL 11/18/20 11/18/20 11/18/20 Range/Units 02:44 03:34 04:33 POC Glucose (mg/dL) 151 H 136 H 115 H (75-99) mg/dL 11/18/20 11/18/20 11/18/20 Range/Units 05:35 06:27 06:51 POC Glucose (mg/dL) 152 H 172 H 158 H (75-99) mg/dL 11/18/20 11/18/20 11/18/20 Range/Units 07:27 08:52 10:03 POC Glucose (mg/dL) 161 H 150 H 139 H (75-99) mg/dL 11/18/20 Range/Units 11:04 POC Glucose (mg/dL) 183 H (75-99) mg/dL Assessment and Plan Plan: 1 shortness of breath, multifactorial, predominantly secondary to fluid overload and possibly a component of cardiac asthma. the patient is clinically improving and is responding nicely to diuretics. Less short of breath. Less bronchospastic. Less wheezing on today's evaluation. Blood sugars are slightly more elevated as the patient is on prednisone burst taper. 2 obesity with a BMI of 43. 3 possible obstructive sleep apnea 4 coronary artery disease with previous coronary stenting 5 hypertension 6 hyperlipidemia 7 hypothyroidism 8 previous history of hemithyroidectomy 9 Diabetes mellitus 10 chronic stage III kidney disease Plan Continue Lasix 40 mg IV push to 12 hours and patient is responding and the patient is a negative fluid balance We need another electrolytes and CMP specially with his aggressive diuresis We'll need to check his electrolytes Will need insulin drip for blood sugar control and to not switch the patient on long-acting insulin. An insulin drip is running at 3 units an hour Continue prednisone burst taper We'll switch this patient oral diuretics probably by tomorrow. monitor urine output We'll continue to follow
--- NOTE | 2020-11-18 11:31 | P.PN ---
Subjective Progress Note Date: 11/18/20 f/u for NASRA, U.O of 4.2 L, with NET negative of 3.9 L Objective - Vital Signs Vital signs: Vital Signs Temp 98.6 F 11/18/20 07:40 Pulse 84 11/18/20 10:58 Resp 16 11/18/20 07:40 BP 151/53 11/18/20 07:40 Pulse Ox 96 11/18/20 07:40 Intake & Output 11/17/20 11/18/20 11/18/20 18:59 06:59 18:59 Intake Total 301.149 31.816 262.052 Output Total 2990 1300 Balance -2688.851 -1268.184 262.052 Weight 126.8 kg Intake: Intake, IV Titration 51.149 31.816 12.052 Amount Insulin Regular 100 unit 51.149 31.816 12.052 In Sodium Chloride 0.9% 100 ml @ Titrate IV .Q0M [facility] Rx#:[id number] Oral 250 250 Output: Urine 2990 1300 Other: Voiding Method Toilet Urinal # Voids 2 - Exam no acute distress s1 s2 herd decreased breath sounds edema - Labs CBC & Chem 7: 11/17/20 07:15 11/17/20 07:15 Labs: Abnormal Lab Results - Last 24 Hours (Table) 11/17/20 11/17/20 11/17/20 Range/Units 12:25 13:21 14:03 POC Glucose (mg/dL) 342 H 314 H 288 H (75-99) mg/dL 11/17/20 11/17/20 11/17/20 Range/Units 14:37 15:13 16:19 POC Glucose (mg/dL) 260 H 219 H 181 H (75-99) mg/dL 11/17/20 11/17/20 11/17/20 Range/Units 17:37 18:22 19:26 POC Glucose (mg/dL) 136 H 129 H 205 H (75-99) mg/dL 11/17/20 11/17/20 11/17/20 Range/Units 20:33 21:45 22:30 POC Glucose (mg/dL) 233 H 226 H 181 H (75-99) mg/dL 11/17/20 11/18/20 11/18/20 Range/Units 23:34 00:38 01:39 POC Glucose (mg/dL) 139 H 117 H 134 H (75-99) mg/dL 11/18/20 11/18/20 11/18/20 Range/Units 02:44 03:34 04:33 POC Glucose (mg/dL) 151 H 136 H 115 H (75-99) mg/dL 11/18/20 11/18/20 11/18/20 Range/Units 05:35 06:27 06:51 POC Glucose (mg/dL) 152 H 172 H 158 H (75-99) mg/dL 11/18/20 11/18/20 11/18/20 Range/Units 07:27 08:52 10:03 POC Glucose (mg/dL) 161 H 150 H 139 H (75-99) mg/dL 11/18/20 Range/Units 11:04 POC Glucose (mg/dL) 183 H (75-99) mg/dL Assessment and Plan Assessment: 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 Diastolic CHF 3. Edema 4. CKD 3 Plan: 1. c/w lasix, change to po torsemide 30 mg at d/c 2. avoid nephrotoxics
[2020-11-18 12:13] LABS: Glucose,Whole Blood 209 mg/dL (75-99)
--- NOTE | 2020-11-18 12:23 | P.PN ---
Subjective Progress Note Date: 11/18/20 Objective - Vital Signs Vital signs: Vital Signs Temp 98.6 F 11/18/20 07:40 Pulse 84 11/18/20 10:58 Resp 16 11/18/20 07:40 BP 151/53 11/18/20 07:40 Pulse Ox 96 11/18/20 07:40 Intake & Output 11/17/20 11/18/20 11/18/20 18:59 06:59 18:59 Intake Total 301.149 31.816 267.270 Output Total 2990 1300 Balance -2688.851 -1268.184 267.270 Weight 126.8 kg Intake: Intake, IV Titration 51.149 31.816 17.270 Amount Insulin Regular 100 unit 51.149 31.816 17.270 In Sodium Chloride 0.9% 100 ml @ Titrate IV .Q0M [facility] Rx#:[id number] Oral 250 250 Output: Urine 2990 1300 Other: Voiding Method Toilet Urinal # Voids 2 - Labs CBC & Chem 7: 11/17/20 07:15 11/17/20 07:15 Labs: Abnormal Lab Results - Last 24 Hours (Table) 11/17/20 11/17/20 11/17/20 Range/Units 12:25 13:21 14:03 POC Glucose (mg/dL) 342 H 314 H 288 H (75-99) mg/dL 11/17/20 11/17/20 11/17/20 Range/Units 14:37 15:13 16:19 POC Glucose (mg/dL) 260 H 219 H 181 H (75-99) mg/dL 11/17/20 11/17/20 11/17/20 Range/Units 17:37 18:22 19:26 POC Glucose (mg/dL) 136 H 129 H 205 H (75-99) mg/dL 11/17/20 11/17/20 11/17/20 Range/Units 20:33 21:45 22:30 POC Glucose (mg/dL) 233 H 226 H 181 H (75-99) mg/dL 11/17/20 11/18/20 11/18/20 Range/Units 23:34 00:38 01:39 POC Glucose (mg/dL) 139 H 117 H 134 H (75-99) mg/dL 11/18/20 11/18/20 11/18/20 Range/Units 02:44 03:34 04:33 POC Glucose (mg/dL) 151 H 136 H 115 H (75-99) mg/dL 11/18/20 11/18/20 11/18/20 Range/Units 05:35 06:27 06:51 POC Glucose (mg/dL) 152 H 172 H 158 H (75-99) mg/dL 11/18/20 11/18/20 11/18/20 Range/Units 07:27 08:52 10:03 POC Glucose (mg/dL) 161 H 150 H 139 H (75-99) mg/dL 11/18/20 11/18/20 Range/Units 11:04 12:11 POC Glucose (mg/dL) 183 H 209 H (75-99) mg/dL
[2020-11-18 13:18] LABS: Glucose,Whole Blood 232 mg/dL (75-99)
[2020-11-18 15:06] LABS: Glucose,Whole Blood 240 mg/dL (75-99)
[2020-11-18 15:44] LABS: Basophils # (A) 0.03 X 10*3/uL (0.00-0.10); Basophils % (A) 0.2 %; Eosinophils # (A) 0.04 X 10*3/uL (0.04-0.35); Eosinophils % (A) 0.3 %; HCT 45.9 % (39.6-50.0); HGB 14.9 g/dL (13.0-17.0); Lymphocytes # (A) 1.31 X 10*3/uL (0.90-5.00); Lymphocytes % (A) 9.5 %; MCHC 32.5 g/dL (32.0-37.0); MCV 86.3 fL (80.0-97.0); Mean Platelet Volume 10.5 fL (9.5-12.2); Monocytes # (A) 0.41 X 10*3/uL (0.20-1.00); Neutrophils # (A) 11.99 X 10*3/uL (1.80-7.70); Neutrophils % (A) 86.6 %; Platelet Count 249 X 10*3/uL (140-440); RBC 5.32 X 10*6/uL (4.40-5.60); RDW 14.1 % (11.5-14.5); WBC 13.84 X 10*3/uL (4.50-10.00)
[2020-11-18 15:56] LABS: African American GFR (CKD) 39.9 (60.0-200.0); Albumin 4.5 g/dL (3.80-4.90); Albumin/Globulin Ratio 1.96 (1.60-3.17); Anion Gap 7.7 mmol/L (4.00-12.00); BUN/Creat Ratio 31.05 Ratio (12.00-20.00); Calcium 9.2 mg/dL (8.7-10.3); Carbon Dioxide 33.3 mmol/L (21.6-31.8); Globulin 2.3 g/dL (1.6-3.3); Non-African American GFR(CKD) 34.5 (60.0-200.0); Potassium 4.2 mmol/L (3.5-5.5); Total Bilirubin 0.7 mg/dL (0.3-1.2); Total Protein 6.8 g/dL (6.2-8.2)
[2020-11-18 16:19] LABS: Glucose,Whole Blood 234 mg/dL (75-99)
--- NOTE | 2020-11-18 17:07 | P.PN ---
Subjective Progress Note Date: 11/18/20 Principal diagnosis: Exertional dyspnea/CHF Acute exacerbation COPD Hyperglycemia 70-year-old male presents with a complaint of shortness of breath. He states that it is much worse with any exertion. It initially started approximately 2 months ago but is much more severe over the past 2 weeks. He states that he has to sleep in a recliner as he cannot breathe if he lays flat. He complains of chronic lower extremity edema which may be somewhat worse. He states that he has had significant weight gain in the last month or so with abdominal distenti on. He also complains of some lower sternal chest pressure. He does have a history of coronary artery disease with 2 cardiac stents. He had 1 cardiac stent placed at our hospital in 2003. He had another cardiac stent placed in [place] in 2004. His last stress test was approximately one year ago and was purportedly normal. He denies any fevers or chills. He was recently started on an albuterol inhaler with minimal relief. 11/15/2020 Patient is seen and evaluated sitting up in bedside chair; family at bedside Patient has been evaluated by pulmonary service and recommended to continue with Lasix 40 mg IV push to 12 hours Continue albuterol nebulized treatments around the clock The patient continues to have severe bronchospasm; systemic steroids has caused significant hyperglycemia. The patient will be placed on 30 mg of prednisone as a part of the burst taper and will monitor his blood sugars 11/16/2020 Patient is seen in follow-up; the patient is being diuresed with IV Lasix and he was responding nicely and his fluid balance was negative in the order of 1.4 L. He was switched to oral Lasix by cardiology today; off the IV Solu-Medrol and the patient was getting also hyperglycemia and the patient is currently on a prednisone burst taper starting with 30 mg on a daily basis.. Echocardiogram was noted. CT angios was noted. He is on IV fluids and he is also on insulin drip at 4 units an hour. IV fluids need to be dropped to KVO. Less bronchospastic and wheezy compared to yesterday. Nephro on board for acute kidney injury on chronic kidney disease. 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 He is unsure as to what his baseline renal function is. Renal function is stable. Good urine output. Edema improved since admission. He was maintained on oral Lasix but was changed to IV Lasix 40 mg twice daily by pulmonology this morning. No chest pain or shortness of breath. Patient does state that the edema in his lower extremities is chronic to an extent. Blood sugars better controlled. 11/17/2020 Patient is seen and evaluated sitting up in bedside chair; reports feeling much better. He is in a negative fluid balance of at least 2.3 L over the past 24 h ours and the patient is feeling better and less short of breath and his overall low status and his breathing status improved compared to yesterday. His current BUN is 53 with a creatinine of 1.8 and a serum bicarb is at 36. He is on Lasix at a dose of 40 mg IV push to 12 hours and is also on bronchodilators around the clock and a prednisone burst taper. His blood sugars are elevated because of steroids. His blood sugar management is through Levemir insulin 30 units along with 20 units with meals and a sliding scale coverage. He is also on Lovenox for DVT prophylaxis. 11/18/2020 the patient is seen and evaluated sitting up in bedside chair; reports feeling better. Continue diuresing over the past 24 hours and is another 3.9 L negative over the past 24 hours. He is feeling better. He is less short of breath. Blood sugars were elevated yesterday and I put him on insulin drip for blood sugar control which is running at 3 units an hour. He was on Levemir earlier 30 units along with 20 units with meals of NovoLog which did not cover his blood sugars well. He remains on IV Lasix 40 mg every 12 hours. BUN of 53 with a creatinine of 1.8 from yesterday and the repeat labs are still pending for now. Swelling and shortness of breath are both improving. No significant cough or sputum production. No other complaint otherwise for now. Awaiting blood work from today to monitor his electrolytes. This will be needed especially with his ongoing severe diuresis. Cardiology and pulmonary service are following; recommending to continue with IV diuresis with Lasix 40 mg every 12 hours with plans to switch to possibly Demadex in next 24-48 hours Patient remains on prednisone burst taper; insulin drip on due to severe hyperglycemia Possible discharge in next 24-48 hours once cleared by cardiology and pulmonary service Objective - Vital Signs Vital signs: Vital Signs Temp 98.2 F 11/18/20 13:41 Pulse 80 11/18/20 15:27 Resp 18 11/18/20 13:41 BP 137/68 11/18/20 13:41 Pulse Ox 95 11/18/20 13:41 Intake & Output 11/17/20 11/18/20 11/18/20 18:59 06:59 18:59 Intake Total 301.149 31.816 548.849 Output Total 2990 1300 1600 Balance -2688.851 -1268.184 -1051.151 Weight 126.8 kg Intake: Intake, IV Titration 51.149 31.816 48.849 Amount Insulin Regular 100 unit 51.149 31.816 48.849 In Sodium Chloride 0.9% 100 ml @ Titrate IV .Q0M [facility] Rx#:[id number] Oral 250 500 Output: Urine 2990 1300 1600 Other: Voiding Method Toilet Urinal # Voids 2 - Exam - Constitutional General appearance: Present: average body habitus, cooperative, no acute distress - EENT Eyes: Present: anicteric sclerae, EOMI, PERRLA, normal appearance ENT: Present: hearing grossly normal, normal oropharynx Ears: bilateral: normal - Neck Neck: Present: normal ROM. Absent: lymphadenopathy, rigidity, thyromegaly Carotids: negative: bruit present Thyroid: bilateral: normal size, negative: enlarged, nodule - Respiratory Respiratory: bilateral: CTA, negative: rales, rhonchi, wheezing - Cardiovascular Rhythm: regular Heart sounds: normal: S1, S2 Abnormal Heart Sounds: Absent: systolic murmur, diastolic murmur - Gastrointestinal General gastrointestinal: Present: normal bowel sounds, soft. Absent: distended, organomegaly, tenderness - Genitourinary Genitourinary Comment(s): deferred - Integumentary Integumentary: Present: normal turgor. Absent: jaundiced, rash, ulcer - Neurologic Neurologic: Present: CNII-XII intact. Absent: focal deficits - Musculoskeletal Musculoskeletal: Present: gait normal, strength equal bilaterally - Psychiatric Psychiatric: Present: A&O x's 3, appropriate affect, intact judgment & insight - Labs CBC & Chem 7: 11/18/20 12:26 11/18/20 12:26 Labs: Abnormal Lab Results - Last 24 Hours (Table) 11/17/20 11/17/2021 Range/Units 17:37 18:22 19:26 WBC (4.50-10.00) X 10*3/uL Immature Gran # (0.00-0.04) X 10*3/uL Neutrophils # (1.80-7.70) X 10*3/uL Carbon Dioxide (21.6-31.8) mmol/L BUN (9.0-27.0) mg/dL Creatinine (0.6-1.5) mg/dL Est GFR (CKD-EPI)AfAm (60.0-200.0) Est GFR (CKD-EPI)NonAf (60.0-200.0) BUN/Creatinine Ratio (12.00-20.00) Ratio Glucose (70-110) mg/dL POC Glucose (mg/dL) 136 H 129 H 205 H (75-99) mg/dL 11/17/20 11/17/20 11/17/20 Range/Units 20:33 21:45 22:30 WBC (4.50-10.00) X 10*3/uL Immature Gran # (0.00-0.04) X 10*3/uL Neutrophils # (1.80-7.70) X 10*3/uL Carbon Dioxide (21.6-31.8) mmol/L BUN (9.0-27.0) mg/dL Creatinine (0.6-1.5) mg/dL Est GFR (CKD-EPI)AfAm (60.0-200.0) Est GFR (CKD-EPI)NonAf (60.0-200.0) BUN/Creatinine Ratio (12.00-20.00) Ratio Glucose (70-110) mg/dL POC Glucose (mg/dL) 233 H 226 H 181 H (75-99) mg/dL 11/17/20 11/18/20 11/18/20 Range/Units 23:34 00:38 01:39 WBC (4.50-10.00) X 10*3/uL Immature Gran # (0.00-0.04) X 10*3/uL Neutrophils # (1.80-7.70) X 10*3/uL Carbon Dioxide (21.6-31.8) mmol/L BUN (9.0-27.0) mg/dL Creatinine (0.6-1.5) mg/dL Est GFR (CKD-EPI)AfAm (60.0-200.0) Est GFR (CKD-EPI)NonAf (60.0-200.0) BUN/Creatinine Ratio (12.00-20.00) Ratio Glucose (70-110) mg/dL POC Glucose (mg/dL) 139 H 117 H 134 H (75-99) mg/dL 11/18/20 11/18/20 11/18/20 Range/Units 02:44 03:34 04:33 WBC (4.50-10.00) X 10*3/uL Immature Gran # (0.00-0.04) X 10*3/uL Neutrophils # (1.80-7.70) X 10*3/uL Carbon Dioxide (21.6-31.8) mmol/L BUN (9.0-27.0) mg/dL Creatinine (0.6-1.5) mg/dL Est GFR (CKD-EPI)AfAm (60.0-200.0) Est GFR (CKD-EPI)NonAf (60.0-200.0) BUN/Creatinine Ratio (.00-.00) Ratio Glucose (70-110) mg/dL POC Glucose (mg/dL) 151 H 136 H 115 H (75-99) mg/dL 11/18/20 11/18/20 11/18/20 Range/Units 05:35 06:27 06:51 WBC (4.50-10.00) X 10*3/uL Immature Gran # (0.00-0.04) X 10*3/uL Neutrophils # (1.80-7.70) X 10*3/uL Carbon Dioxide (21.6-31.8) mmol/L BUN (9.0-27.0) mg/dL Creatinine (0.6-1.5) mg/dL Est GFR (CKD-EPI)AfAm (60.0-200.0) Est GFR (CKD-EPI)NonAf (60.0-200.0) BUN/Creatinine Ratio (12.00-20.00) Ratio Glucose (70-110) mg/dL POC Glucose (mg/dL) 152 H 172 H 158 H (75-99) mg/dL 11/18/20 11/18/20 11/18/20 Range/Units 07:27 08:52 10:03 WBC (4.50-10.00) X 10*3/uL Immature Gran # (0.00-0.04) X 10*3/uL Neutrophils # (1.80-7.70) X 10*3/uL Carbon Dioxide (21.6-31.8) mmol/L BUN (9.0-27.0) mg/dL Creatinine (0.6-1.5) mg/dL Est GFR (CKD-EPI)AfAm (60.0-200.0) Est GFR (CKD-EPI)NonAf (60.0-200.0) BUN/Creatinine Ratio (12.00-20.00) Ratio Glucose (70-110) mg/dL POC Glucose (mg/dL) 161 H 150 H 139 H (75-99) mg/dL 11/18/20 11/18/20 11/18/20 Range/Units 11:04 12:11 12:26 WBC 13.84 H (4.50-10.00) X 10*3/uL Immature Gran # 0.06 H (0.00-0.04) X 10*3/uL Neutrophils # 11.99 H (1.80-7.70) X 10*3/uL Carbon Dioxide (21.6-31.8) mmol/L BUN (9.0-27.0) mg/dL Creatinine (0.6-1.5) mg/dL Est GFR (CKD-EPI)AfAm (60.0-200.0) Est GFR (CKD-EPI)NonAf (60.0-200.0) BUN/Creatinine Ratio (12.00-20.00) Ratio Glucose (70-110) mg/dL POC Glucose (mg/dL) 183 H 209 H (75-99) mg/dL 11/18/20 11/18/20 11/18/20 Range/Units 12:26 13:13 15:03 WBC (4.50-10.00) X 10*3/uL Immature Gran # (0.00-0.04) X 10*3/uL Neutrophils # (1.80-7.70) X 10*3/uL Carbon Dioxide 33.3 H (21.6-31.8) mmol/L BUN 59.0 H (9.0-27.0) mg/dL Creatinine 1.9 H (0.6-1.5) mg/dL Est GFR (CKD-EPI)AfAm 39.9 L (60.0-200.0) Est GFR (CKD-EPI)NonAf 34.5 L (60.0-200.0) BUN/Creatinine Ratio 31.05 H (12.00-20.00) Ratio Glucose 221 H (70-110) mg/dL POC Glucose (mg/dL) 232 H 240 H (75-99) mg/dL 11/18/20 Range/Units 16:16 WBC (4.50-10.00) X 10*3/uL Immature Gran # (0.00-0.04) X 10*3/uL Neutrophils # (1.80-7.70) X 10*3/uL Carbon Dioxide (21.6-31.8) mmol/L BUN (9.0-27.0) mg/dL Creatinine (0.6-1.5) mg/dL Est GFR (CKD-EPI)AfAm (60.0-200.0) Est GFR (CKD-EPI)NonAf (60.0-200.0) BUN/Creatinine Ratio (12.00-20.00) Ratio Glucose (70-110) mg/dL POC Glucose (mg/dL) 234 H (75-99) mg/dL Assessment and Plan Assessment: 1. Exertional dyspnea/CHF - Patient remains on Lasix 40 mg IV every 8 hours; we'll continue to monitor strict BRUNO's, daily weights; continue with low-salt and fluid restricted diet - Cardiology is consulted and await further recommendations 2. Suspect lower extremity DVT - Bilateral lower extremity venous Doppler is ordered; continue with DVT prophylaxis at this time 3. Worsening renal injury; patient remains on IV Lasix and creatinine is slowly trending up; we will consult nephrology for further recommendations; hold off on IV fluids at this time; monitor strict BRUNO's, daily weights, renal function and electrolytes; avoid nephrotoxic agents; hold losartan until further evaluation by nephro 4. Coronary artery disease status post PCI in 2003; stable at baseline on aspirin, atorvastatin, Imdur, Lopressor 5. Hypertension; continue with home dose of Lopressor and Imdur; losartan on hold due to renal injury 6. Dyslipidemia; Lipitor 80 mg by mouth 7. Diabetes mellitus; controlled with insulin; continue with Lantus 30 units subcu daily at bedtime along with Humalog sliding scale before every meal C 8. Hypothyroidism; levothyroxin 112 MCG daily DVT prophylaxis; SCDs/subcu Lovenox CODE STATUS; full code
[2020-11-18 18:09] LABS: Glucose,Whole Blood 228 mg/dL (75-99)
[2020-11-18 20:04] LABS: Glucose,Whole Blood 284 mg/dL (75-99)
[2020-11-18] MEDS: ATORVASTATIN 80 MG TAB PO SCH (20:15)
[2020-11-18 22:01] LABS: Glucose,Whole Blood 234 mg/dL (75-99)
[2020-11-18] MEDS: INSULIN REGULAR 100 UNIT in SODIUM CHLORIDE 0.9% 100 ML IV SCH (22:28)
[2020-11-19 00:22] LABS: Glucose,Whole Blood 131 mg/dL (75-99)
[2020-11-19 02:08] LABS: Glucose,Whole Blood 178 mg/dL (75-99)
[2020-11-19 04:04] LABS: Glucose,Whole Blood 120 mg/dL (75-99)
[2020-11-19 05:11] LABS: Glucose,Whole Blood 134 mg/dL (75-99)
[2020-11-19] MEDS: LEVOTHYROXINE 112 MCG TAB PO SCH (05:31)
[2020-11-19] MEDS: ALBUTEROL HFA INHALER INHALATION SCH (07:06)
[2020-11-19] MEDS: IPRATROPIUM-ALBUTEROL 3 ML NEB INHALATION SCH ×3 (07:08→15:52)
[2020-11-19 07:13] LABS: Glucose,Whole Blood 240 mg/dL (75-99)
[2020-11-19] MEDS: LORATADINE 10 MG TAB PO SCH (08:33)
[2020-11-19] MEDS: predniSONE 10 MG TAB PO SCH (08:33)
[2020-11-19] MEDS: FINASTERIDE 5 MG TAB PO SCH (08:33)
[2020-11-19] MEDS: ENOXAPARIN 40 MG/0.4 ML SYRINGE SQ SCH (08:34)
[2020-11-19] MEDS: FUROSEMIDE 10 MG/ML 4 ML VIAL IV SCH (08:34)
[2020-11-19] MEDS: hydrALAZINE HCL 25 MG TAB PO SCH (08:34)
[2020-11-19] MEDS: FAMOTIDINE 20 MG TAB PO SCH (08:34)
[2020-11-19] MEDS: ASPIRIN 81 MG PO SCH (08:34)
[2020-11-19] MEDS: METOPROLOL TARTRATE 50 MG TAB PO SCH (08:34)
[2020-11-19] MEDS: MULTIVITAMINS, THERA 1 EACH TAB PO SCH (08:34)
[2020-11-19] MEDS: FLUTICASONE 50MCG/SPRAY NASAL 16GM EA NOSTRIL SCH (08:35)
[2020-11-19 09:07] LABS: Glucose,Whole Blood 400 mg/dL (75-99)
[2020-11-19 11:02] LABS: African American GFR (CKD) 39.9 (60.0-200.0); Anion Gap 11.2 mmol/L (4.00-12.00); BUN/Creat Ratio 31.58 Ratio (12.00-20.00); Calcium 8.8 mg/dL (8.7-10.3); Carbon Dioxide 32.8 mmol/L (21.6-31.8); Non-African American GFR(CKD) 34.5 (60.0-200.0); Potassium 4.1 mmol/L (3.5-5.5)
[2020-11-19 11:06] LABS: Glucose,Whole Blood 324 mg/dL (75-99)
[2020-11-19] MEDS: INSULIN REGULAR 100 UNIT in SODIUM CHLORIDE 0.9% 100 ML IV SCH (12:03)
[2020-11-19 13:05] LABS: Glucose,Whole Blood 211 mg/dL (75-99)
--- NOTE | 2020-11-19 13:52 | P.PN ---
Subjective Progress Note Date: 11/19/20 Principal diagnosis: Dyspnea An 78-year-old male patient with known history of CAD with previous PCI back in 2003 in addition to morbid obesity, diabetes mellitus and hypertension and hyperlipidemia. The patient was initially hospitalized for worsening shortness of breath. The patient follows up at the [place] office and he was experiencing exertional dyspnea and for that reason he end up coming into the hospital. Denied having any angina. No palpitation. No significant cough or sputum production. No hemoptysis or pleurisy. The symptoms started approximately 2 weeks ago. The patient stated that he was leaving a recliner due to inability to breathe. He also complained of lower extremity edema which was getting worse and he had also increased in body weight and he also described some chest pressure/pain, nonspecified an estimated is known to have coronary artery di sease with previous coronary stenting 2 last one being in 2003 performed in our hospital. Subsequently another stent was placed and after 2004. His latest cardiac stress test with approximately year ago and was reportedly normal. The patient's blood work at a time of admission showed a white cell 9.0 with hemoglobin of 13.6 and the platelets of 203 blood work showed a chronic kidney disease with a creatinine of 1.4-1.96 and this morning is down to 1.7. The patient has a component of metabolic alkalosis with a serum bicarb as high as 33. The patient also has normal LFTs, normal troponin, BNP level was 227, and UA was negative.: COVID 19 testing was also negative. The chest x-ray showed cardiomegaly and there was mild chronic parenchymal changes bilaterally without any suspicious of any focal infiltrates or effusions or pneumothorax. The patient did have some cardiomegaly. Based on that, a CT angiogram was performed and the CTA showed some patchy groundglass interstitial infiltrates in the lungs bilaterally mainly in the midlung area and there was borderline cardiomegaly wi thout any pericardial effusion or pleural effusion or hilar or mediastinal masses. No evidence of any pulmonary embolism. Currently the patient has a pulse ox of 93% on room air oxygen. No echocardiogram was done and showed an ejection fraction of 50-55%, RV was normal, on a was normal, mild pulmonary hypertension with a PA pressure of 37, no significant valvular abnormalities noted, no pericardial effusion 11/16/2020 the patient is being diuresed with IV Lasix and he was responding nicely and his fluid balance was negative in the order of 1.4 L. He was switched to oral Lasix by cardiology today. I took him off the IV Solu-Medrol and the patient was getting also hyperglycemia and the patient is currently on a prednisone burst taper starting with 30 mg on a daily basis.. Echocardiogram was noted. CT angios was noted. He is on IV fluids and he is also on insulin drip at 4 units an hour. IV fluids need to be dropped to KVO. Less bronchospastic and wheezy compared to yesterday. No chest pain. on 11/17/2020 the patient is feeling much better. He is in a negative fluid balance of at least 2.3 L over the past 24 hours and the patient is feeling better and less short of breath and his overall low status and his breathing status improved compared to yesterday. His current BUN is 53 with a creatinine of 1.8 and a serum bicarb is at 36. He is on Lasix at a dose of 40 mg IV push to 12 hours and is also on bronchodilators around the clock and a prednisone burst taper. His blood sugars are elevated because of steroids. His blood sugar management is through Levemir insulin 30 units along with 20 units with meals and a sliding scale coverage. He is also on Lovenox for DVT prophylaxis. 11/18/2020, the patient is feeling better. Continue diuresing over the past 24 hours and is another 3.9 L negative over the past 24 hours. He is feeling better. He is less short of breath. Blood sugars were elevated yesterday and I put him on insulin drip for blood sugar control which is running at 3 units an hour. He was on Levemir earlier 30 units along with 20 units with meals of NovoLog which did not cover his blood sugars well. He remains on IV Lasix 40 mg every 12 hours. BUN of 53 with a creatinine of 1.8 from yesterday and the repeat labs are still pending for now. Swelling and shortness of breath are both improving. No significant cough or sputum production. No other complaint otherwise for now. Awaiting blood work from today to monitor his electrolytes. This will be needed especially with his ongoing severe diuresis. On 11/19/2020 patient seen in follow-up on medical surgical floor, he remains on diuretics, he is maintaining negative fluid balance, he is in -2.2 L fluid balance over the last 24 hours, his chest x-ray from 11/17/2020 shows no acute process, improved aeration, his fluid volume status is improving, lower extremity edema has improved. Room air pulse ox is 99%, no fever or chills, completed chest pain. He remains on Lasix 40 mg every 12 hours, he is on nebulized bronchodilators and insulin infusion, he has been transitioned to oral prednisone. Had no acute events overnight. Today's labs have been reviewed, showing sodium of 139, potassium is 4.1, chloride is 95, CO2 32, BUN 16 creatinine is 1.9. Objective - Vital Signs Vital signs: Vital Signs Temp 97.1 F L 11/19/20 08:00 Pulse 63 11/19/20 11:11 Resp 18 11/19/20 11:11 BP 145/69 11/19/20 08:00 Pulse Ox 99 11/19/20 08:00 Intake & Output 11/18/20 11/19/20 11/19/20 18:59 06:59 18:59 Intake Total 563.528 349.835 75.178 Output Total 1600 1600 Balance -1036.472 -1250.165 75.178 Weight 126.5 kg Intake: Intake, IV Titration 63.528 49.835 75.178 Amount Insulin Regular 100 unit 63.528 49.835 75.178 In Sodium Chloride 0.9% 100 ml @ Titrate IV .Q0M [facility] Rx#:[id number] Oral 500 300 Output: Urine 1600 1600 Other: Voiding Method Toilet Urinal # Voids 3 - Exam GENERAL EXAM: Alert, very pleasant, 70-year-old white male, on room air, with pulse ox of 99% comfortable in no apparent distress. HEAD: Normocephalic/atraumatic. EYES: Normal reaction of pupils, equal size. Conjunctiva pink, sclera white. NOSE: Clear with pink turbinates. THROAT: No erythema or exudates. NECK: No masses, no JVD, no thyroid enlargement, no adenopathy. CHEST: No chest wall deformity. Symmetrical expansion. LUNGS: Equal air entry with no crackles, wheeze, rhonchi or dullness. CVS: Regular rate and rhythm, normal S1 and S2, no gallops, no murmurs, no rubs ABDOMEN: Soft, nontender. No hepatosplenomegaly, normal bowel sounds, no guarding or rigidity. EXTREMITIES: No clubbing, no edema, no cyanosis, 2+ pulses and upper and lower extremities. MUSCULOSKELETAL: Muscle strength and tone normal. SPINE: No scoliosis or deformity SKIN: No rashes CENTRAL NERVOUS SYSTEM: Alert and oriented -3. No focal deficits, tone is normal in all 4 extremities. PSYCHIATRIC: Alert and oriented -3. Appropriate affect. Intact judgment and insight. - Labs CBC & Chem 7: 11/18/20 12:26 11/19/20 06:24 Labs: Abnormal Lab Results - Last 24 Hours (Table) 11/18/20 11/18/20 11/18/20 Range/Units 12:26 12:26 15:03 WBC 13.84 H (4.50-10.00) X 10*3/uL Immature Gran # 0.06 H (0.00-0.04) X 10*3/uL Neutrophils # 11.99 H (1.80-7.70) X 10*3/uL Chloride (96-109) mmol/L Carbon Dioxide 33.3 H (21.6-31.8) mmol/L BUN 59.0 H (9.0-27.0) mg/dL Creatinine 1.9 H (0.6-1.5) mg/dL Est GFR (CKD-EPI)AfAm 39.9 L (60.0-200.0) Est GFR (CKD-EPI)NonAf 34.5 L (60.0-200.0) BUN/Creatinine Ratio 31.05 H (12.00-20.00) Ratio Glucose 221 H (70-110) mg/dL POC Glucose (mg/dL) 240 H (75-99) mg/dL 11/18/20 11/18/20 11/18/20 Range/Units 16:16 18:08 20:02 WBC (4.50-10.00) X 10*3/uL Immature Gran # (0.00-0.04) X 10*3/uL Neutrophils # (1.80-7.70) X 10*3/uL Chloride (96-109) mmol/L Carbon Dioxide (21.6-31.8) mmol/L BUN (9.0-27.0) mg/dL Creatinine (0.6-1.5) mg/dL Est GFR (CKD-EPI)AfAm (60.0-200.0) Est GFR (CKD-EPI)NonAf (60.0-200.0) BUN/Creatinine Ratio (12.00-20.00) Ratio Glucose (70-110) mg/dL POC Glucose (mg/dL) 234 H 228 H 284 H (75-99) mg/dL 11/18/20 11/19/20 11/19/20 Range/Units 21:58 00:20 02:04 WBC (4.50-10.00) X 10*3/uL Immature Gran # (0.00-0.04) X 10*3/uL Neutrophils # (1.80-7.70) X 10*3/uL Chloride (96-109) mmol/L Carbon Dioxide (21.6-31.8) mmol/L BUN (9.0-27.0) mg/dL Creatinine (0.6-1.5) mg/dL Est GFR (CKD-EPI)AfAm (60.0-200.0) Est GFR (CKD-EPI)NonAf (60.0-200.0) BUN/Creatinine Ratio (12.00-20.00) Ratio Glucose (70-110) mg/dL POC Glucose (mg/dL) 234 H 131 H 178 H (75-99) mg/dL 11/19/20 11/19/20 11/19/20 Range/Units 04:02 05:10 06:24 WBC (4.50-10.00) X 10*3/uL Immature Gran # (0.00-0.04) X 10*3/uL Neutrophils # (1.80-7.70) X 10*3/uL Chloride 95 L (96-109) mmol/L Carbon Dioxide 32.8 H (21.6-31.8) mmol/L BUN 60.0 H (9.0-27.0) mg/dL Creatinine 1.9 H (0.6-1.5) mg/dL Est GFR (CKD-EPI)AfAm 39.9 L (60.0-200.0) Est GFR (CKD-EPI)NonAf 34.5 L (60.0-200.0) BUN/Creatinine Ratio 31.58 H (12.00-20.00) Ratio Glucose 206 H (70-110) mg/dL POC Glucose (mg/dL) 120 H 134 H (75-99) mg/dL 11/19/20 11/19/20 11/19/20 Range/Units 07:11 09:06 11:05 WBC (4.50-10.00) X 10*3/uL Immature Gran # (0.00-0.04) X 10*3/uL Neutrophils # (1.80-7.70) X 10*3/uL Chloride (96-109) mmol/L Carbon Dioxide (21.6-31.8) mmol/L BUN (9.0-27.0) mg/dL Creatinine (0.6-1.5) mg/dL Est GFR (CKD-EPI)AfAm (60.0-200.0) Est GFR (CKD-EPI)NonAf (60.0-200.0) BUN/Creatinine Ratio (12.00-20.00) Ratio Glucose (70-110) mg/dL POC Glucose (mg/dL) 240 H 400 H 324 H (75-99) mg/dL 11/19/20 Range/Units 13:03 WBC (4.50-10.00) X 10*3/uL Immature Gran # (0.00-0.04) X 10*3/uL Neutrophils # (1.80-7.70) X 10*3/uL Chloride (96-109) mmol/L Carbon Dioxide (21.6-31.8) mmol/L BUN (9.0-27.0) mg/dL Creatinine (0.6-1.5) mg/dL Est GFR (CKD-EPI)AfAm (60.0-200.0) Est GFR (CKD-EPI)NonAf (60.0-200.0) BUN/Creatinine Ratio (12.00-20.00) Ratio Glucose (70-110) mg/dL POC Glucose (mg/dL) 211 H (75-99) mg/dL Assessment and Plan Plan: Assessment: 1 shortness of breath, multifactorial, predominantly secondary to fluid overload and possibly a component of cardiac asthma. the patient is clinically improving and is responding nicely to diuretics. Less short of breath. Less bro nchospastic. Less wheezing on today's evaluation. Blood sugars are slightly more elevated as the patient is on prednisone burst taper. 2 obesity with a BMI of 43. 3 possible obstructive sleep apnea 4 coronary artery disease with previous coronary stenting 5 hypertension 6 hyperlipidemia 7 hypothyroidism 8 previous history of hemithyroidectomy 9 Diabetes mellitus 10 chronic stage III kidney disease Plan: We'll switch the IV Lasix to oral Lasix, patient is maintaining negative fluid balance, he has been transitioned to oral prednisone, continue nebulized bronchodilators, he is maintaining negative fluid balance, no worsening dyspnea, lower signs have been stable, he is on room air, increase activity as tolerated, from pulmonary perspective he can be considered for discharge home on a short prednisone taper, he can continue albuterol, oral Lasix he will need outpatient follow-up with Dr. Vance in the office in 7-10 days. I performed a history & physical examination of the patient and discussed their management with my nurse practitioner, Emiliana Dutta. I reviewed the nurse practitioner's note and agree with the documented findings and plan of care. Lung sounds are positive for diminished breath sounds. The findings and the impression was discussed with the patient. I attest to the documentation by the nurse practitioner. Time with Patient: Less than 30
[2020-11-19 14:35] VITALS: BP 139/70; RESP 19; TEMP 98.2
[2020-11-19 15:04] LABS: Glucose,Whole Blood 215 mg/dL (75-99)
--- NOTE | 2020-11-19 15:42 | P.DS ---
Providers Date of admission: 11/15/20 11:17 Attending physician: Ludy Mccracken Consults: 11/12/20 19:03 Consult Physician Routine Consulting Provider: Ky Amezcua Consult Reason/Comments: chf, cp Do you want consulting provider notified?: Yes 11/13/20 08:10 Consult Physician Routine Consulting Provider: Kim Hodgson Consult Reason/Comments: worsening NASRA/CHF exac Do you want consulting provider notified?: Yes 11/14/20 10:02 Consult Physician Routine Consulting Provider: Morenita Vance Consult Reason/Comments: Dyspnea Do you want consulting provider notified?: Yes Primary care physician: Physician Nonstaff Hospital Course: Patient was admitted for the exertional shortness of breath. Found to have a fluid overload patient had a normal ejection fraction the past patient was extensively evaluated. Patient was treated for chronic diastolic dysfunction with acute exacerbation and patient is clinically doing well failure euvolemic creatinine went up to 1.9 because of that reason patient will not be discharged on losartan. Patient will follow-up with nephrology, cardiology PCP as an outpatient. Patient blood sugars are bit high because of systemic steroids which was started with concerns of asthma or COPD exacerbation although patient appears to have cardiac asthma from CHF exacerbation. Will do a quick taper of steroids and blood sugars are expected to stay higher because of that reason for about a week to 10 days. PHYSICAL EXAMINATION: GENERAL: The patient is alert and oriented x3, not in any acute distress. Well developed, well nourished. HEENT: Pupils are round and equally reacting to light. EOMI. No scleral icterus. No conjunctival pallor. Normocephalic, atraumatic. No pharyngeal erythema. No thyromegaly. CARDIOVASCULAR: S1 and S2 present. No murmurs, rubs, or gallops. PULMONARY: Chest is clear to auscultation, no wheezing or crackles. ABDOMEN: Soft, nontender, nondistended, normoactive bowel sounds. No palpable organomegaly. MUSCULOSKELETAL: No joint swelling or deformity. EXTREMITIES: No cyanosis, clubbing, or pedal edema. NEUROLOGICAL: Gross neurological examination did not reveal any focal deficits. SKIN: No rashes. - congestive heart failure chronic diastolic dysfunction with acute exacerbation -Acute renal failure secondary to diuretics -Chronic kidney disease stage III secondary to diabetic nephropathy The rest of her medical problems and hospitalization course please refer to the progress note from from yesterday. Patient Condition at Discharge: Fair Plan - Discharge Summary Discharge Rx Participant: Yes New Discharge Prescriptions: New hydrALAZINE HCL [Apresoline] 50 mg PO TID #90 tab predniSONE 10 mg PO DAILY #7 tab Continue Metoprolol Tartrate [Lopressor] 50 mg PO BID Multivitamins, Thera [Multivitamin (formulary)] 1 tab PO DAILY Lidocaine 4% Cream [Lmx 4] 1 applic TOPICAL DAILY PRN PRN Reason: Pain Levothyroxine Sodium [Synthroid] 224 mcg PO DAILY Isosorbide Mononitrate ER [Imdur] 30 mg PO DAILY Insulin Glargine,Hum.rec.anlog [Lantus Solostar] 30 unit SQ HS Insulin Aspart [NovoLOG Flexpen] See Protocol SQ AC-TID Fluticasone Nasal [place] [Flonase Nasal [place]] 1 spray EA NOSTRIL BID Finasteride [Proscar] 5 mg PO DAILY Famotidine 40 mg PO DAILY Cetirizine HCl 10 mg PO DAILY Atorvastatin [Lipitor] 80 mg PO HS Aspirin EC [Ecotrin Low Dose] 81 mg PO HS Albuterol Inhaler [Ventolin Hfa Inhaler] 1 puff INHALATION RT-DAILY Discontinued Losartan [Cozaar] 50 mg PO DAILY Furosemide [Lasix] 20 mg PO DAILY Discharge Medication List Albuterol Inhaler [Ventolin Hfa Inhaler] 1 puff INHALATION RT-DAILY 11/12/20 [History] Aspirin EC [Ecotrin Low Dose] 81 mg PO HS 11/12/20 [History] Atorvastatin [Lipitor] 80 mg PO HS 11/12/20 [History] Cetirizine HCl 10 mg PO DAILY 11/12/20 [History] Famotidine 40 mg PO DAILY 11/12/20 [History] Finasteride [Proscar] 5 mg PO DAILY 11/12/20 [History] Fluticasone Nasal [place] [Flonase Nasal [place]] 1 spray EA NOSTRIL BID 11/12/20 [History] Insulin Aspart [NovoLOG Flexpen] See Protocol SQ AC-TID 11/12/20 [History] Insulin Glargine,Hum.rec.anlog [Lantus Solostar] 30 unit SQ HS 11/12/20 [History] Isosorbide Mononitrate ER [Imdur] 30 mg PO DAILY 11/12/20 [History] Levothyroxine Sodium [Synthroid] 224 mcg PO DAILY 11/12/20 [History] Lidocaine 4% Cream [Lmx 4] 1 applic TOPICAL DAILY PRN 11/12/20 [History] Metoprolol Tartrate [Lopressor] 50 mg PO BID 11/12/20 [History] Multivitamins, Thera [Multivitamin (formulary)] 1 tab PO DAILY 11/12/20 [History] hydrALAZINE HCL [Apresoline] 50 mg PO TID #90 tab 11/19/20 [Rx] predniSONE 10 mg PO DAILY #7 tab 11/19/20 [Rx] Follow up Appointment(s)/Referral(s): Nonstaff,Physician [Primary Care Provider] - 3 Days Stanton Landeros DO [STAFF PHYSICIAN] - 1 Week Morenita Vance MD [STAFF PHYSICIAN] - 1 Week Activity/Diet/Wound Care/Special Instructions: Nurse: If there are any new Rx's they will need to be paper scripts and these will need to be faxed to [facility] @ [phone] (Form is in chart to fax with Rx's) Discharge Disposition: HOME SELF-CARE
[2020-11-19] MEDS ORDERED: FUROSEMIDE 40 MG TAB PO SCH (16:00)
[2020-11-19 16:07] VITALS: PULSE 60
--- NOTE | 2020-11-19 18:25 | PN ---
PROGRESS NOTE The patient is seen for followup for acute kidney injury. He is currently comfortable. Patient denies any significant complaints. He has had good urine output. He is maintained on oral diuretics. PHYSICAL EXAMINATION: On examination today, blood pressure was 139/70, heart rate 72 per minute. He is afebrile. Examination of the heart S1, S2. Examination of the lungs, bilateral breath sounds are heard. Abdomen is soft, nontender. Examination of lower extremities shows edema 1+ bilaterally. 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 LAB: Show sodium 139, potassium 4.1, chloride 95, BUN 60, serum creatinine 1.9, calcium 8.8. ASSESSMENT: 1. Acute kidney injury mostly cardiorenal currently stable. 2. Volume overload improved. 3. Congestive heart failure, diastolic acute on top of chronic, now improving. 4. Chronic kidney disease stage 3. PLAN: Patient can be discharged on oral Demadex about 30 mg daily and follow up with repeat labs as outpatient in 2-3 days. MMODL / IJN: [id number] /
== END 2020-11-19 16:46 | disposition home or self-care (01) | DRG 291 ==
LOC: EC 14:45 → 3SCARD 19:03 → OBSVTOIN 11-15 11:17 → 4SSUR 11-16 23:01
PROVIDERS: ADMIT Internal Medicine; ATTEND Internal Medicine
DX: I13.0 Hypertensive heart and chronic kidney disease with heart failure and stage 1 through stage 4 chronic kidney disease, or unspecified chronic kidney disease (principal); I50.33 Acute on chronic diastolic (congestive) heart failure; N17.9 Acute kidney failure, unspecified; E87.3 Alkalosis; Z68.41 Body mass index [BMI] 40.0-44.9, adult; J44.1 Chronic obstructive pulmonary disease with (acute) exacerbation; I25.110 Atherosclerotic heart disease of native coronary artery with unstable angina pectoris; E11.22 Type 2 diabetes mellitus with diabetic chronic kidney disease; E11.65 Type 2 diabetes mellitus with hyperglycemia; E66.01 Morbid (severe) obesity due to excess calories; I27.20 Pulmonary hypertension, unspecified; N18.30 Chronic kidney disease, stage 3 unspecified; T50.8X5A Adverse effect of diagnostic agents, initial encounter; E87.5 Hyperkalemia; I44.7 Left bundle-branch block, unspecified; I08.3 Combined rheumatic disorders of mitral, aortic and tricuspid valves; G47.33 Obstructive sleep apnea (adult) (pediatric); E78.5 Hyperlipidemia, unspecified; N42.9 Disorder of prostate, unspecified; E11.21 Type 2 diabetes mellitus with diabetic nephropathy; E03.9 Hypothyroidism, unspecified; T50.2X5A Adverse effect of carbonic-anhydrase inhibitors, benzothiadiazides and other diuretics, initial encounter; Z79.4 Long term (current) use of insulin; Z95.5 Presence of coronary angioplasty implant and graft; Z88.0 Allergy status to penicillin; Z88.7 Allergy status to serum and vaccine; Z91.041 Radiographic dye allergy status; Z79.82 Long term (current) use of aspirin; Z79.890 Hormone replacement therapy; Z79.899 Other long term (current) drug therapy
CPT/HCPCS: 36415; 71045; 71046; 71275; 76770; 80048; 80053; 81003; 83036; 83735; 83880; 84484; 85025; 85379; 85610; 85730; 87635; 93005; 93306; 93970; 94640; 94760; 96374; 96375; 99285